=== PATIENT | male | born 1935 | race Caucasian/White ===

== ENCOUNTER 2020-02-21 12:07 | Inpatient (IN) | payer MEDICARE ==
[2020-02-21] MEDS ORDERED: PANTOPRAZOLE 40 MG/10 ML VIAL IVP STA (12:38)
[2020-02-21] MEDS ORDERED: SODIUM CHLORIDE 0.9% 1,000 ML IV STA (12:38)
--- NOTE | 2020-02-21 12:42 | ED ---
General Adult HPI - General Chief complaint: GI Bleed Stated complaint: Rectal Bleed Time Seen by Provider: 02/21/20 12:13 Source: patient, EMS, RN notes reviewed Mode of arrival: EMS Limitations: no limitations - History of Present Illness Initial comments: Patient is a pleasant 84-year-old male presenting to the emergency department with concerns for rectal bleeding. Patient states he had a bowel movement this morning with bright red blood. Patient states otherwise he feels fine only complains of being thirsty. Patient states he has been eating and drinking fine. No abdominal pain. No weakness or fatigue or dyspnea. Patient is on blood thinner secondary to history of atrial fibrillation. Patient reportedly has been refusing his Lovenox injections recently. - Related Data Home Medications Medication Instructions Recorded Confirmed Acetaminophen Tab [Tylenol] 650 mg PO Q4H PRN 02/21/20 02/21/20 Aspirin 81 mg PO DAILY 02/21/20 02/21/20 Atorvastatin Calcium [Lipitor] 10 mg PO HS 02/21/20 02/21/20 Cholecalciferol [Vitamin D3 (25 1,000 unit PO HS 02/21/20 02/21/20 Mcg = 1000 Iu)] Clopidogrel Bisulfate [Plavix] 75 mg PO DAILY 02/21/20 02/21/20 Heparin Sodium,Porcine [Heparin 5,000 unit SQ Q12H 02/21/20 02/21/20 Sodium] Ipratropium [place] [Atrovent Hfa] 2 puff INHALATION RT-QID 02/21/20 02/21/20 Ipratropium-Albuterol Nebulize 3 ml INHALATION RT-Q4H PRN 02/21/20 02/21/20 [Duoneb 0.5 mg-3 mg/3 ml Soln] Levothyroxine Sodium [Synthroid] 50 mcg PO DAILY@0600 02/21/20 02/21/20 Multivitamins, Thera [Multivitamin 1 tab PO DAILY@0900 02/21/20 02/21/20 (formulary)] [place]-3 Fatty Acids/Fish Oil [Fish 1 cap PO BID 02/21/20 02/21/20 Oil 1,000 mg Softgel] Ranitidine HCl 150 mg PO DAILY@0600 02/21/20 02/21/20 Allergies Allergy/AdvReac Type Severity Reaction Status Date / Time adhesive tape Allergy Unknown Verified 02/21/20 13:33 liquid potoassium Allergy Unknown Uncoded 02/21/20 13:33 Review of Systems ROS Statement: Those systems with pertinent positive or pertinent negative responses have been documented in the HPI. ROS Other: All systems not noted in ROS Statement are negative. Constitutional: Denies: fever Eyes: Denies: eye pain ENT: Denies: ear pain Respiratory: Denies: cough Cardiovascular: Denies: chest pain Endocrine: Denies: fatigue Gastrointestinal: Reports: hematochezia. Denies: vomiting Genitourinary: Denies: dysuria Musculoskeletal: Denies: back pain Skin: Denies: rash Neurological: Denies: weakness Past Medical History Past Medical History: Atrial Fibrillation Additional Past Medical History / Comment(s): pacemaker Past Surgical History: Cholecystectomy, Pacemaker Past Psychological History: No Psychological Hx Reported Smoking Status: Former smoker Past Alcohol Use History: None Reported Past Drug Use History: None Reported General Exam Limitations: no limitations General appearance: alert, in no apparent distress Head exam: Present: normocephalic Eye exam: Present: normal appearance ENT exam: Present: mucous membranes dry Neck exam: Present: normal inspection Respiratory exam: Present: normal lung sounds bilaterally Cardiovascular Exam: Present: tachycardia GI/Abdominal exam: Present: soft. 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 Patient is refusing EKG. 02/21/20 13:25 Monitor shows sinus tachycardia with a rate of 107. No irregularity. Patient is placed on monitor to evaluate for rhythm with history of arrhythmia. Medical Decision Making - Medical Decision Making Patient reevaluated and updated. Case was discussed with Dr. Peterson, who will admit covering for Dr. Jason - Lab Data Result diagrams: 02/21/20 12:52 02/21/20 12:52 Lab Results 02/21/20 02/21/20 02/21/20 Range/Units 12:52 12:52 12:52 WBC 10.8 H (3.8-10.6) k/uL RBC 3.04 L (4.30-5.90) m/uL Hgb 9.4 L (13.0-17.5) gm/dL Hct 28.1 L (39.0-53.0) % MCV 92.3 (80.0-100.0) fL MCH 30.9 (25.0-35.0) pg MCHC 33.5 (31.0-37.0) g/dL RDW 16.3 H (11.5-15.5) % Plt Count 365 (150-450) k/uL MPV 7.2 Neutrophils % 81 % Lymphocytes % 12 % Monocytes % 4 % Eosinophils % 1 % Basophils % 1 % Neutrophils # 8.7 H (1.3-7.7) k/uL Lymphocytes # 1.3 (1.0-4.8) k/uL Monocytes # 0.4 (0-1.0) k/uL Eosinophils # 0.1 (0-0.7) k/uL Basophils # 0.1 (0-0.2) k/uL Hypochromasia Slight Anisocytosis Slight Sodium 141 (137-145) mmol/L Potassium 4.9 (3.5-5.1) mmol/L Chloride 106 (98-107) mmol/L Carbon Dioxide 31 H (22-30) mmol/L Anion Gap 4 mmol/L BUN 38 H (9-20) mg/dL Creatinine 0.82 (0.66-1.25) mg/dL Est GFR (CKD-EPI)AfAm >90 (>60 ml/min/1.73 sqM) Est GFR (CKD-EPI)NonAf 81 (>60 ml/min/1.73 sqM) Glucose 112 H (74-99) mg/dL Calcium 8.8 (8.4-10.2) mg/dL Total Bilirubin 0.6 (0.2-1.3) mg/dL AST 24 (17-59) U/L ALT 20 (4-49) U/L Alkaline Phosphatase 125 (38-126) U/L Total Protein 5.7 L (6.3-8.2) g/dL Albumin 2.6 L (3.5-5.0) g/dL Stool Occult Blood Positive (Negative) Blood Type Blood Type Recheck Bld Type Recheck Status Antibody Screen Spec Expiration Date 02/21/20 Range/Units 12:52 WBC (3.8-10.6) k/uL RBC (4.30-5.90) m/uL Hgb (13.0-17.5) gm/dL Hct (39.0-53.0) % MCV (80.0-100.0) fL MCH (25.0-35.0) pg MCHC (31.0-37.0) g/dL RDW (11.5-15.5) % Plt Count (150-450) k/uL MPV Neutrophils % % Lymphocytes % % Monocytes % % Eosinophils % % Basophils % % Neutrophils # (1.3-7.7) k/uL Lymphocytes # (1.0-4.8) k/uL Monocytes # (0-1.0) k/uL Eosinophils # (0-0.7) k/uL Basophils # (0-0.2) k/uL Hypochromasia Anisocytosis Sodium (137-145) mmol/L Potassium (3.5-5.1) mmol/L Chloride (98-107) mmol/L Carbon Dioxide (22-30) mmol/L Anion Gap mmol/L BUN (9-20) mg/dL Creatinine (0.66-1.25) mg/dL Est GFR (CKD-EPI)AfAm (>60 ml/min/1.73 sqM) Est GFR (CKD-EPI)NonAf (>60 ml/min/1.73 sqM) Glucose (74-99) mg/dL Calcium (8.4-10.2) mg/dL Total Bilirubin (0.2-1.3) mg/dL AST (17-59) U/L ALT (4-49) U/L Alkaline Phosphatase (38-126) U/L Total Protein (6.3-8.2) g/dL Albumin (3.5-5.0) g/dL Stool Occult Blood (Negative) Blood Type B Positive Blood Type Recheck No Previous Record Bld Type Recheck Status CABO Indicated Antibody Screen NEGATIVE Spec Expiration Date 02/24/20202351 Disposition Clinical Impression: Lower gastrointestinal hemorrhage Disposition: ADMITTED IP TO THIS HOSP Is patient prescribed a controlled substance at d/c from ED?: No Referrals: Danny Gomez MD [Primary Care Provider] - 1-2 days Decision Time: 13:56
[2020-02-21] MEDS ORDERED: ACETAMINOPHEN TAB 325 MG TAB PO STA (13:14)
[2020-02-21 13:20] LABS: Anisocytosis Slight; Basophils # (A) 0.1 k/uL (0-0.2); Basophils % (A) 1 %; Eosinophils # (A) 0.1 k/uL (0-0.7); Eosinophils % (A) 1 %; HCT 28.1 % (39.0-53.0); HGB 9.4 gm/dL (13.0-17.5); Hypochromasia Slight; Lymphocytes # (A) 1.3 k/uL (1.0-4.8); Lymphocytes % (A) 12 %; MCH 30.9 pg (25.0-35.0); MCHC 33.5 g/dL (31.0-37.0); MCV 92.3 fL (80.0-100.0); Mean Platelet Volume 7.2; Monocytes # (A) 0.4 k/uL (0-1.0); Monocytes % (A) 4 %; Neutrophils # (A) 8.7 k/uL (1.3-7.7); Neutrophils % (A) 81 %; Platelet Count 365 k/uL (150-450); RBC 3.04 m/uL (4.30-5.90); RDW 16.3 % (11.5-15.5); WBC 10.8 k/uL (3.8-10.6)
[2020-02-21 13:34] LABS: ALT 20 U/L (4-49); AST 24 U/L (17-59); African American GFR (CKD) >90 (>60 ml/min/1.73 sqM); Albumin 2.6 g/dL (3.5-5.0); Alkaline Phosphatase 125 U/L (38-126); Anion Gap 4 mmol/L; Blood Urea Nitrogen 38 mg/dL (9-20); Calcium 8.8 mg/dL (8.4-10.2); Carbon Dioxide 31 mmol/L (22-30); Chloride 106 mmol/L (98-107); Glucose 112 mg/dL (74-99); Non-African American GFR(CKD) 81 (>60 ml/min/1.73 sqM); Potassium 4.9 mmol/L (3.5-5.1); Sodium 141 mmol/L (137-145); Total Bilirubin 0.6 mg/dL (0.2-1.3); Total Protein 5.7 g/dL (6.3-8.2)
[2020-02-21 13:47] LABS: INR 0.9 (<1.2); Prothrombin Time 10.2 sec (9.0-12.0)
[2020-02-21 13:55] LABS: Partial Thromboplastin Time 20.8 sec (22.0-30.0)
[2020-02-21] MEDS ORDERED: NALOXONE 0.4 MG/ML 1 ML VIAL IV PRN (13:56)
[2020-02-21] MEDS: SODIUM CHLORIDE 0.9% 1,000 ML IV SCH (14:38)
[2020-02-21] MEDS ORDERED: MORPHINE SULFATE 2 MG/ML SYRINGE IVP STA (15:07)
[2020-02-21] MEDS ORDERED: IPRATROPIUM-ALBUTEROL 3 ML NEB INHALATION PRN (15:40)
[2020-02-21] MEDS: ATORVASTATIN 10 MG TAB PO SCH ×2 (20:36→20:46)
[2020-02-21] MEDS: CHOLECALCIFEROL 1,000 UNIT TAB PO SCH ×2 (20:36→20:46)
[2020-02-21 20:54] LABS: % Iron Saturation 14.77 (15.00-50.00)
[2020-02-21] MEDS ORDERED: NON FORMULARY DRUG (Omega-3 Fatty Acids/Fish Oil [Fish Oil 1,000 Mg Softgel] 1 EACH Capsul PO SCH (21:00)
[2020-02-21 21:02] LABS: Ferritin 169.4 ng/mL (22.0-322.0)
--- NOTE | 2020-02-21 21:11 | P.CONS ---
History of Present Illness - Reason for Consult Consult date: 02/21/20 GI bleed Requesting physician: Prasanth Peterson - Chief Complaint Blood per rectum - History of Present Illness 84-year-old male with a medical history significant for atrial fibrillation, prior permanent pacemaker placement, hypothyroidism who presented to the hospital due to complaints of blood per rectum. The patient is on Plavix and aspirin therapy daily. He reports having difficulty having a bowel movement with the sensation of stool impaction. At this time he reports that a nurse who is visiting helped him remove the impacted stool and that subsequently he had painless bright red blood per rectum. No abdominal pain reported in association with these symptoms. He reports that he was straining. He states that he is had no further bleeding since that episode. Baseline bowel movements are reported as daily without any straining or constipation or diarrhea reported. Stool testing was positive for occult blood. Hemoglobin was found to be 9.4 with WBC 10.8 and platelet count of 365,000. The patient denies any prior similar episodes. He denies any history of peptic ulcer disease. No nausea or vomiting reported. He denies any prior endoscopic evaluation with EGD or colonoscopy in on questioning reports that he absolutely does not want to have any colonoscopy. Review of Systems REVIEW OF SYSTEMS: CONSTITUTIONAL: Denies any fevers, chills, weight change or fatigue. CARDIOVASCULAR: Denies any chest pain, palpitations high or low blood pressures RESPIRATORY: Denies any shortness of breath, hemoptysis or cough. GENITOURINARY: No dysuria or hematuria. MUSCULOSKELETAL: No weakness reported. SKIN: Denies any new rashes or lesions, jaundice or pallor. PSYCHIATRIC: Denies any depression or anxiety. NEUROLOGY: Denies headache, denies any new focal deficits. EARS/NOSE/THROAT: No recent hearing change, congestion, nasal discharge or sore throat. EYES: No pain in eyes, discharge or change in vision. GASTROINTESTINAL: As per HPI. Past Medical History Past Medical History: Atrial Fibrillation Additional Past Medical History / Comment(s): pacemaker History of Any Multi-Drug Resistant Organisms: None Reported Past Surgical History: Cholecystectomy, Pacemaker Type of Cardiac Device: Permanent Pacemaker, Unknown Device Placement Date:: unknown Past Psychological History: No Psychological Hx Reported Smoking Status: Former smoker Past Alcohol Use History: None Reported Past Drug Use History: None Reported Additional History: Family history: Reviewed with the patient in noncontributory to current medical presentation. Medications and Allergies Home Medications Medication Instructions Recorded Confirmed Type Acetaminophen Tab [Tylenol] 650 mg PO Q4H PRN 02/21/20 02/21/20 History Aspirin 81 mg PO DAILY 02/21/20 02/21/20 History Atorvastatin Calcium [Lipitor] 10 mg PO HS 02/21/20 02/21/20 History Cholecalciferol [Vitamin D3 (25 1,000 unit PO HS 02/21/20 02/21/20 History Mcg = 1000 Iu)] Clopidogrel Bisulfate [Plavix] 75 mg PO DAILY 02/21/20 02/21/20 History Heparin Sodium,Porcine [Heparin 5,000 unit SQ Q12H 02/21/20 02/21/20 History Sodium] Ipratropium [place] [Atrovent Hfa] 2 puff INHALATION RT-QID 02/21/20 02/21/20 History Ipratropium-Albuterol Nebulize 3 ml INHALATION RT-Q4H PRN 02/21/20 02/21/20 History [Duoneb 0.5 mg-3 mg/3 ml Soln] Levothyroxine Sodium [Synthroid] 50 mcg PO DAILY@0600 02/21/20 02/21/20 History Multivitamins, Thera [Multivitamin 1 tab PO DAILY@0900 02/21/20 02/21/20 History (formulary)] [place]-3 Fatty Acids/Fish Oil [Fish 1 cap PO BID 02/21/20 02/21/20 History Oil 1,000 mg Softgel] Ranitidine HCl 150 mg PO DAILY@0600 02/21/20 02/21/20 History Allergies Allergy/AdvReac Type Severity Reaction Status Date / Time adhesive tape Allergy Unknown Verified 02/21/20 13:33 liquid potoassium Allergy Unknown Uncoded 02/21/20 13:33 Physical Exam Vitals: Vital Signs Temp Pulse Pulse Resp BP BP Pulse Ox 02/21/20 19:19 97.9 F 56 L 16 95/59 95 02/21/20 16:15 97.5 F L 95 16 104/67 97 02/21/20 15:58 98 18 93/59 97 02/21/20 13:13 105 H 18 102/66 98 02/21/20 12:12 98.1 F 109 H 18 87/61 98 Intake and Output 02/21/20 02/21/20 02/21/20 06:59 14:59 22:59 Intake Total 300 Balance 300 Intake: Intake, IV Titration 300 Amount Sodium Chloride 0.9% 1, 300 000 ml @ 100 mls/hr IV . Q10H [facility] Rx#:[id number] Other: Weight 68.039 kg 68.039 kg On physical examination, patient appears comfortable in no apparent distress. HEAD: Normocephalic, atraumatic. EYES: No scleral icterus. No conjunctival injection. MOUTH: No lesions, tongue midline. NECK: Trachea midline, no gross abnormalities. CHEST: Decreased air entry in all lung de. HEART: S1-S2 appreciated. ABDOMEN: Soft, nontender to palpation. Bowel sounds are positive. No organomegaly. No guarding or rigidity. EXTREMITIES: No pedal edema. SKIN: No rashes, no jaundice. NEUROLOGIC: Alert and oriented x3. Results CBC & Chem 7: 02/21/20 12:52 02/21/20 12:52 Labs: Abnormal Lab Results - Last 24 Hours (Table) 02/21/20 02/21/20 02/21/20 Range/Units 12:52 12:52 12:52 WBC 10.8 H (3.8-10.6) k/uL RBC 3.04 L (4.30-5.90) m/uL Hgb 9.4 L (13.0-17.5) gm/dL Hct 28.1 L (39.0-53.0) % RDW 16.3 H (11.5-15.5) % Neutrophils # 8.7 H (1.3-7.7) k/uL APTT 20.8 L (22.0-30.0) sec Carbon Dioxide 31 H (22-30) mmol/L BUN 38 H (9-20) mg/dL Glucose 112 H (74-99) mg/dL Total Protein 5.7 L (6.3-8.2) g/dL Albumin 2.6 L (3.5-5.0) g/dL Assessment and Plan (1) Lower gastrointestinal hemorrhage Narrative/Plan: 84-year-old male with multiple medical comorbidities including atrial fibrillation, hypothyroidism, prior pacemaker placement on aspirin and Plavix therapy who presented to the hospital with painless bright red blood per rectum. The patient reports an episode of constipation with manual disimpaction and subsequent painless bright red blood per rectum. No further episodes since hospitalization. He denies any abdominal pain in association with his symptoms. Hemoglobin found to be 9.4 on presentation. He denies constipation and diarrhea baseline but does report difficulty having his bowel movement with straining and disimpaction prior to the bleeding as stated. No prior endoscopy with EGD or colonoscopy in the past and the patient is quite adamant that he is not interested in colonoscopy. Unclear etiology, may represent perirectal disease, stercoral ulcer in the setting of constipation, diverticular bleed, malignancy or other etiology. Current Visit: Yes Status: Acute Code(s): K92.2 - GASTROINTESTINAL HEMORRHAGE, UNSPECIFIED SNOMED Code(s): 72503477 (2) Anemia associated with acute blood loss Current Visit: Yes Status: Acute Code(s): D62 - ACUTE POSTHEMORRHAGIC ANEMIA SNOMED Code(s): 871319982 Plan: Supportive care Nothing by mouth Continue to monitor hemoglobin and hematocrit and transfuse as needed Continue to hold Plavix therapy Extensive discussion with the patient regarding the possibility of endoscopic evaluation, with all of the risks, benefits and possible complications of both proceeding with colonoscopy as well as not performing endoscopic evaluation explained at length with all the patient's questions answered to his satisfaction, at this time he is adamant that he does not want a colonoscopy X-ray of the abdomen ordered for tomorrow morning to rule out constipation and evaluate stool burden Can consider noninvasive evaluation with computed tomography scan or barium enema if patient continues to refuse colonoscopy, or tagged red blood cell scan if patient continues to have bleeding for localization of bleed Thank you for allowing us to participate in the care of the patient
[2020-02-21] MEDS: IPRATROPIUM 0.5 MG/2.5 ML NEBU INHALATION SCH (21:28)
--- NOTE | 2020-02-21 22:27 | P.HPIM ---
History of Present Illness H&P Date: 02/21/20 Chief Complaint: Bright red blood per rectum History of presenting complaint: This is a 84-year-old patient who follows with Dr. Gomez. Patient not a good historian and is on the irritated giving history. Doesn't want to be disturbed. Chronic stable medical conditions include hypothyroid, COPD, hyperlipidemia. He presented to the ER with rectal bleeding. He stated that he had bowel movement this morning that was bright red in color. Denies any abdominal pain. No trouble with eating. No weight loss. Denies any dizziness and lightheadedness. He is apparently on a blood thinner for atrial fibrillation. Unclear if he is taking the same. Does use a walker and apparently lives alone Review of systems: GEN.: None EYES: None HEENT: Decreased hearing] NECK: None RESPIRATORY: None CARDIOVASCULAR: None GASTROINTESTINAL: As above GENITOURINARY: None MUSCULOSKELETAL: Some joint pains LYMPHATICS: None HEMATOLOGICAL: None PSYCHIATRY: None NEUROLOGICAL: Uses a walker Past medical history to include: Atrial fibrillation, hypothyroid, pacemaker, COPD, arthritis Social history: Lives alone. Uses a walker. Did smoke in the past Family history: Patient cannot tell Physical examination: VITAL SIGNS: 98.1, 109, 18, 87/61, 98% room air GENERAL: BMI 22.2, laying in bed, a bit irritated. EYES: Pupils equal. Conjunctiva normal. HEENT: External appearance of nose and ears normal, oral cavity missing several teeth. NECK: JVD or bruit to be assessed, masses not palpable. HEART: Irregular heart sounds no edema. LUNGS: Respiratory rate normal; increased breath sounds. ABDOMEN: Soft, nontender, liver spleen not palpable, no masses palpable. PSYCH: Patient somewhat agitated can answer some questionsl. NEUROLOGICAL: [Cranial nerves grossly intact; no facial asymmetry, appears to contract of the right hand LYMPHATICS: No lymph nodes palpable in the axilla and neck INVESTIGATIONS, reviewed in the clinical context: White count 10.8 hemoglobin 9.4 platelets 365 potassium 4.9 creatinine 0.82 Fecal occult blood positive vitamin B12 633 albumin 2.6 Assessment: -Patient presents with bright red blood per rectum. Differential includes diverticular bleed versus hemorrhoidal bleed. Denies any abdominal pain. 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 Care was discussed with the patient. GI was consulted. IV fluids. Patient is put on a PPI. Follow H&H. Past Medical History Past Medical History: Atrial Fibrillation Additional Past Medical History / Comment(s): pacemaker History of Any Multi-Drug Resistant Organisms: None Reported Past Surgical History: Cholecystectomy, Pacemaker Type of Cardiac Device: Permanent Pacemaker, Unknown Device Placement Date:: unknown Past Psychological History: No Psychological Hx Reported Smoking Status: Former smoker Past Alcohol Use History: None Reported Past Drug Use History: None Reported Medications and Allergies Home Medications Medication Instructions Recorded Confirmed Type Acetaminophen Tab [Tylenol] 650 mg PO Q4H PRN 02/21/20 02/21/20 History Aspirin 81 mg PO DAILY 02/21/20 02/21/20 History Atorvastatin Calcium [Lipitor] 10 mg PO HS 02/21/20 02/21/20 History Cholecalciferol [Vitamin D3 (25 1,000 unit PO HS 02/21/20 02/21/20 History Mcg = 1000 Iu)] Clopidogrel Bisulfate [Plavix] 75 mg PO DAILY 02/21/20 02/21/20 History Heparin Sodium,Porcine [Heparin 5,000 unit SQ Q12H 02/21/20 02/21/20 History Sodium] Ipratropium [place] [Atrovent Hfa] 2 puff INHALATION RT-QID 02/21/20 02/21/20 History Ipratropium-Albuterol Nebulize 3 ml INHALATION RT-Q4H PRN 02/21/20 02/21/20 History [Duoneb 0.5 mg-3 mg/3 ml Soln] Levothyroxine Sodium [Synthroid] 50 mcg PO DAILY@0600 02/21/20 02/21/20 History Multivitamins, Thera [Multivitamin 1 tab PO DAILY@0900 02/21/20 02/21/20 History (formulary)] [place]-3 Fatty Acids/Fish Oil [Fish 1 cap PO BID 02/21/20 02/21/20 History Oil 1,000 mg Softgel] Ranitidine HCl 150 mg PO DAILY@0600 02/21/20 02/21/20 History Allergies Allergy/AdvReac Type Severity Reaction Status Date / Time adhesive tape Allergy Unknown Verified 02/21/20 13:33 liquid potoassium Allergy Unknown Uncoded 02/21/20 13:33 Physical Exam Vitals: Vital Signs Temp Pulse Pulse Resp BP BP Pulse Ox 02/21/20 19:19 97.9 F 56 L 16 95/59 95 02/21/20 16:15 97.5 F L 95 16 104/67 97 02/21/20 15:58 98 18 93/59 97 02/21/20 13:13 105 H 18 102/66 98 02/21/20 12:12 98.1 F 109 H 18 87/61 98 Intake and Output 02/21/20 02/21/20 02/21/20 06:59 14:59 22:59 Intake Total 300 Balance 300 Intake: Intake, IV Titration 300 Amount Sodium Chloride 0.9% 1, 300 000 ml @ 100 mls/hr IV . Q10H [facility] Rx#:[id number] Other: Weight 68.039 kg 68.039 kg Results CBC & Chem 7: 02/21/20 12:52 02/21/20 12:52 Labs: Abnormal Lab Results - Last 24 Hours (Table) 02/21/20 02/21/20 02/21/20 Range/Units 12:52 12:52 12:52 WBC 10.8 H (3.8-10.6) k/uL RBC 3.04 L (4.30-5.90) m/uL Hgb 9.4 L (13.0-17.5) gm/dL Hct 28.1 L (39.0-53.0) % RDW 16.3 H (11.5-15.5) % Neutrophils # 8.7 H (1.3-7.7) k/uL APTT 20.8 L (22.0-30.0) sec Carbon Dioxide 31 H (22-30) mmol/L BUN 38 H (9-20) mg/dL Glucose 112 H (74-99) mg/dL Iron (65-175) ug/dL % Saturation (15.00-50.00) Total Protein 5.7 L (6.3-8.2) g/dL Albumin 2.6 L (3.5-5.0) g/dL 02/21/20 Range/Units 12:52 WBC (3.8-10.6) k/uL RBC (4.30-5.90) m/uL Hgb (13.0-17.5) gm/dL Hct (39.0-53.0) % RDW (11.5-15.5) % Neutrophils # (1.3-7.7) k/uL APTT (22.0-30.0) sec Carbon Dioxide (22-30) mmol/L BUN (9-20) mg/dL Glucose (74-99) mg/dL Iron 35 L (65-175) ug/dL % Saturation 14.77 L (15.00-50.00) Total Protein (6.3-8.2) g/dL Albumin (3.5-5.0) g/dL Thrombosis Risk Factor Assmnt - Choose All That Apply Each Risk Factor Represents 3 Points: Age 75 years or older Thrombosis Risk Factor Assessment Total Risk Factor Score: 3 Thrombosis Risk Factor Assessment Level: Moderate Risk
[2020-02-22] MEDS: SODIUM CHLORIDE 0.9% 1,000 ML IV SCH ×3 (00:08→20:23)
[2020-02-22] MEDS: LEVOTHYROXINE 50 MCG TAB PO SCH (05:21)
[2020-02-22] MEDS: FAMOTIDINE 20 MG TAB PO SCH (05:21)
[2020-02-22 06:22] LABS: Anisocytosis Slight; Basophils # (A) 0.1 k/uL (0-0.2); Basophils % (A) 1 %; Eosinophils # (A) 0.1 k/uL (0-0.7); Eosinophils % (A) 2 %; HCT 26.6 % (39.0-53.0); HGB 8.5 gm/dL (13.0-17.5); Hypochromasia Marked; Lymphocytes # (A) 1.5 k/uL (1.0-4.8); Lymphocytes % (A) 23 %; MCH 30.8 pg (25.0-35.0); MCV 96.3 fL (80.0-100.0); Macrocytosis Slight; Monocytes # (A) 0.3 k/uL (0-1.0); Monocytes % (A) 5 %; Neutrophils # (A) 4.3 k/uL (1.3-7.7); Neutrophils % (A) 67 %; Platelet Count 302 k/uL (150-450); RBC 2.77 m/uL (4.30-5.90); RDW 16.2 % (11.5-15.5); WBC 6.4 k/uL (3.8-10.6)
[2020-02-22] MEDS: IPRATROPIUM 0.5 MG/2.5 ML NEBU INHALATION SCH ×4 (09:26→21:04)
[2020-02-22] MEDS: MULTIVITAMINS, THERA 1 EACH TAB PO SCH (09:49)
[2020-02-22] MEDS: PANTOPRAZOLE 40 MG/10 ML VIAL IV SCH (09:49)
[2020-02-22 10:11] LABS: African American GFR (CKD) 106.3 (60.0-200.0); Anion Gap 7.5 mmol/L (4.00-12.00); BUN/Creat Ratio 48.33 Ratio (12.00-20.00); Calcium 7.6 mg/dL (8.7-10.3); Carbon Dioxide 24.5 mmol/L (21.6-31.8); Non-African American GFR(CKD) 91.7 (60.0-200.0); Potassium 4.4 mmol/L (3.5-5.5)
--- NOTE | 2020-02-22 10:51 | XR ---
Abdomen HISTORY: Pain, stool burden Frontal view the abdomen on 2 images Abdominal aortic aneurysm is suspected correlated approximately 9 cm. There are bilateral calcificati ons, partial staghorn calculus on the right measures greater than 3 cm. Calcification on the left matt sures 1 cm, there are smaller calcifications present bilaterally. Lung bases are clear. Leads are pre sent over the heart. There is some retained fecal debris present. No evident bowel obstruction or pne umoperitoneum, vascular calcifications are present and dense. Degenerative disc changes are present i n the visualized spine, there is a spinal curvature. No evident pneumoperitoneum. IMPRESSION: Abdominal aortic aneurysm. Bilateral nephrolithiasis. There may be underlying ileus. Resu lts relayed to patient's nurse by telephone at the time of interpretation. A [place] level critical message alert has been initiated for Prasanth Peterson MD via the [employer] Critical Results System on 02/22/2020 10:26 AM. This message alert has been sent to Prasanth Peterson MD via the preferences provided by the clinician for the receipt of Radiology Critical Findings. [employer] e ID [id number].
[2020-02-22] MEDS: ACETAMINOPHEN TAB 325 MG TAB PO PRN (11:58)
--- NOTE | 2020-02-22 13:04 | P.GSCN ---
History of Present Illness Consult date: 02/22/20 Reason for Consult: Abdominal aortic aneurysm measuring 9 cm Requesting physician: Prasanth Peterson History of present illness: This is an 84-year-old male with a medical history significant for atrial fibrillation, prior permanent pacemaker placement, hypothyroidism who presented to the hospital due to complaints of blood per rectum. The patient is on Plavix and aspirin therapy daily. He reports having difficulty having a bowel movement with the sensation of stool impaction. He was residing at [facility] on the [place], and states a nurse helped him remove some impacted stool and he had s appointment prewrap blood per rectum on the tissue when wiping. No abdominal pain reported in association with these symptoms. He states that he is had no further bleeding since that episode. Stool testing was positive for occult blood. Hemoglobin was found to be 9.4 with WBC 10.8 and platelet count of 365,000. The patient denies any prior similar episodes. Gastroenterology was on consult and ordered an x-ray of the abdomen to see if there was stool burden. The x-ray old no abdominal aortic aneurysm that is suspected approximately 9 cm. There are bilateral calcifications partial staghorn calculus at the right measures greater than 3 cm., Calcification on the left measures 1 cm. Was additionally some evidence of retained fecal debris. No evidence of bowel obstruction. Vascular surgery was consulted regarding the abdominal aortic aneurysm. The patient denies any shortness of breath, chest pain, or abdominal pain. Denies any nausea or vomiting. He is on aspirin and Plavix, Plavix is currently on hold for questionable GI bleed. Review of Systems A 14 point review of systems was completed all pertinent positives and negatives as stated in the HPI. Past Medical History Past Medical History: Atrial Fibrillation Additional Past Medical History / Comment(s): pacemaker History of Any Multi-Drug Resistant Organisms: None Reported Past Surgical History: Cholecystectomy, Pacemaker Type of Cardiac Device: Permanent Pacemaker, Unknown Device Placement Date:: unknown Past Psychological History: No Psychological Hx Reported Smoking Status: Former smoker Past Alcohol Use History: None Reported Past Drug Use History: None Reported Medications and Allergies Home Medications Medication Instructions Recorded Confirmed Type Acetaminophen Tab [Tylenol] 650 mg PO Q4H PRN 02/21/20 02/21/20 History Aspirin 81 mg PO DAILY 02/21/20 02/21/20 History Atorvastatin Calcium [Lipitor] 10 mg PO HS 02/21/20 02/21/20 History Cholecalciferol [Vitamin D3 (25 1,000 unit PO HS 02/21/20 02/21/20 History Mcg = 1000 Iu)] Clopidogrel Bisulfate [Plavix] 75 mg PO DAILY 02/21/20 02/21/20 History Heparin Sodium,Porcine [Heparin 5,000 unit SQ Q12H 02/21/20 02/21/20 History Sodium] Ipratropium [place] [Atrovent Hfa] 2 puff INHALATION RT-QID 02/21/20 02/21/20 History Ipratropium-Albuterol Nebulize 3 ml INHALATION RT-Q4H PRN 02/21/20 02/21/20 History [Duoneb 0.5 mg-3 mg/3 ml Soln] Levothyroxine Sodium [Synthroid] 50 mcg PO DAILY@0600 02/21/20 02/21/20 History Multivitamins, Thera [Multivitamin 1 tab PO DAILY@0900 02/21/20 02/21/20 History (formulary)] [place]-3 Fatty Acids/Fish Oil [Fish 1 cap PO BID 02/21/20 02/21/20 History Oil 1,000 mg Softgel] Ranitidine HCl 150 mg PO DAILY@0600 02/21/20 02/21/20 History Allergies Allergy/AdvReac Type Severity Reaction Status Date / Time adhesive tape Allergy Unknown Verified 02/21/20 13:33 liquid potoassium Allergy Unknown Uncoded 02/21/20 13:33 Surgical - Exam Vital Signs Temp Pulse Resp BP Pulse Ox 98.1 F 109 H 18 87/61 98 02/21/20 12:12 02/21/20 12:12 02/21/20 12:12 02/21/20 12:12 02/21/20 12:12 General appearance: The patient is alert, oriented, appears in no acute distres s. HET: Head is normocephalic and atraumatic. Neck: Supple without lymphadenopathy. Trachea midline. Heart: S1 S2. Regular rate and rhythm. Lungs: No crackles or wheezes are heard. Abdomen: Soft, nontender, nondistended with bowel sounds. Extremities: Normal skin color and turgor. No cyanosis, rash, ulceration, clubbing, or edema. Palpable bilateral radial and dorsalis pedis pulses. Neurological: He is alert and oriented 2, unsure of the year. Results Abdominal x-ray: Abdominal aortic aneurysm is suspected correlated him approximately 9 cm. Bilateral nephrolithiasis. There may be underlying ileus. Results relayed to patient's nurse. - Labs 02/22/20 05:41 02/22/20 05:41 Abnormal Lab Results - Last 24 Hours (Table) 02/21/20 02/21/20 02/21/20 Range/Units 12:52 12:52 12:52 WBC 10.8 H (3.8-10.6) k/uL RBC 3.04 L (4.30-5.90) m/uL Hgb 9.4 L (13.0-17.5) gm/dL Hct 28.1 L (39.0-53.0) % RDW 16.3 H (11.5-15.5) % Neutrophils # 8.7 H (1.3-7.7) k/uL APTT 20.8 L (22.0-30.0) sec Carbon Dioxide 31 H (22-30) mmol/L BUN 38 H (9-20) mg/dL BUN/Creatinine Ratio (12.00-20.00) Ratio Glucose 112 H (74-99) mg/dL Calcium (8.7-10.3) mg/dL Iron (65-175) ug/dL % Saturation (15.00-50.00) Total Protein 5.7 L (6.3-8.2) g/dL Albumin 2.6 L (3.5-5.0) g/dL 02/21/20 02/22/20 02/22/20 Range/Units 12:52 05:41 05:41 WBC (3.8-10.6) k/uL RBC 2.77 L (4.30-5.90) m/uL Hgb 8.5 L (13.0-17.5) gm/dL Hct 26.6 L (39.0-53.0) % RDW 16.2 H (11.5-15.5) % Neutrophils # (1.3-7.7) k/uL APTT (22.0-30.0) sec Carbon Dioxide (22-30) mmol/L BUN 29.0 H (9-20) mg/dL BUN/Creatinine Ratio 48.33 H (12.00-20.00) Ratio Glucose (74-99) mg/dL Calcium 7.6 L (8.7-10.3) mg/dL Iron 35 L (65-175) ug/dL % Saturation 14.77 L (15.00-50.00) Total Protein (6.3-8.2) g/dL Albumin (3.5-5.0) g/dL Diabetes panel 02/21/20 02/22/20 Range/Units 12:52 05:41 Sodium 141 140 (137-145) mmol/L Potassium 4.9 4.4 (3.5-5.1) mmol/L Chloride 106 108 (98-107) mmol/L Carbon Dioxide 31 H 24.5 (22-30) mmol/L BUN 38 H 29.0 H (9-20) mg/dL Creatinine 0.82 0.6 (0.66-1.25) mg/dL Glucose 112 H 90 (74-99) mg/dL Calcium 8.8 7.6 L (8.4-10.2) mg/dL AST 24 (17-59) U/L ALT 20 (4-49) U/L Alkaline Phosphatase 125 (38-126) U/L Total Protein 5.7 L (6.3-8.2) g/dL Albumin 2.6 L (3.5-5.0) g/dL Calcium panel 02/21/20 02/22/20 Range/Units 12:52 05:41 Calcium 8.8 7.6 L (8.4-10.2) mg/dL Albumin 2.6 L (3.5-5.0) g/dL Pituitary panel 02/21/20 02/22/20 Range/Units 12:52 05:41 Sodium 141 140 (137-145) mmol/L Potassium 4.9 4.4 (3.5-5.1) mmol/L Chloride 106 108 (98-107) mmol/L Carbon Dioxide 31 H 24.5 (22-30) mmol/L BUN 38 H 29.0 H (9-20) mg/dL Creatinine 0.82 0.6 (0.66-1.25) mg/dL Glucose 112 H 90 (74-99) mg/dL Calcium 8.8 7.6 L (8.4-10.2) mg/dL Adrenal panel 02/21/20 02/22/20 Range/Units 12:52 05:41 Sodium 141 140 (137-145) mmol/L Potassium 4.9 4.4 (3.5-5.1) mmol/L Chloride 106 108 (98-107) mmol/L Carbon Dioxide 31 H 24.5 (22-30) mmol/L BUN 38 H 29.0 H (9-20) mg/dL Creatinine 0.82 0.6 (0.66-1.25) mg/dL Glucose 112 H 90 (74-99) mg/dL Calcium 8.8 7.6 L (8.4-10.2) mg/dL Total Bilirubin 0.6 (0.2-1.3) mg/dL AST 24 (17-59) U/L ALT 20 (4-49) U/L Alkaline Phosphatase 125 (38-126) U/L Total Protein 5.7 L (6.3-8.2) g/dL Albumin 2.6 L (3.5-5.0) g/dL Assessment and Plan Assessment: 1. Abdominal aortic aneurysm measuring 9 cm per abdominal x-ray 2. Rectal bleed 3. History of atrial fibrillation with prior permanent pacemaker Plan: The abdominal x-ray was reviewed with Dr. Alvarez. The findings were discussed with the patient was concerned there could be abdominal aortic rupture which could lead to . Patient states it verbalizes he seemingly understands and does not want to proceed with any vascular surgical intervention and does not want any further workup. Patient is adamant that he will not have any surgical procedures. This again was also discussed with Dr. Alvarez. There will be no further workup. Patient may be discharged home from a vascular surgical standpoint once medically cleared. He may follow-up with Dr. Alvarez as an outpatient if he changes his mind and would like to discuss possible intervention. Thank you for this consultation and allowing us take part in the plan of care of your patient during his hospital stay. The above dictated assessment and findings were discussed with Dr. Alvarez. The impression and plan of care have been directed as dictated.
--- NOTE | 2020-02-22 14:14 | P.PN ---
Subjective Progress Note Date: 02/22/20 Principal diagnosis: Rectal bleed Patient was seen and examined at the bedside. Patient denied any abdominal pain, nausea, or vomiting. He states he has not had a bowel movement. He has not had any further rectal bleeding. He again states he does not want to proceed with colonoscopy or any surgical intervention. Today's hemoglobin 8.5. Abdominal x-ray shows abdominal aortic aneurysm 9 cm, for which vascular surgery will see patient otherwise states there is some retained fecal debris present no evident bowel obstruction or pneumoperitoneum. There may be underlying ileus. Objective - Vital Signs Vital signs: Vital Signs Temp 97.5 F L 02/22/20 07:55 Pulse 87 02/22/20 07:55 Resp 18 02/22/20 07:55 BP 107/68 02/22/20 07:55 Pulse Ox 100 02/22/20 07:55 Intake & Output 02/21/20 02/22/20 02/22/20 18:59 06:59 18:59 Intake Total 300 800 Balance 300 800 Weight 68.039 kg Intake: Intake, IV Titration 300 800 Amount Sodium Chloride 0.9% 1, 300 800 000 ml @ 100 mls/hr IV . Q10H [facility] Rx#:[id number] Other: Voiding Method Diaper # Voids 1 1 - Exam General appearance: The patient is alert, oriented, appears in no acute distress. HET: Head is normocephalic and atraumatic. Conjunctiva pink. Sclera anicteric. Neck: Supple without lymphadenopathy. Abdomen: Soft, nontender, nondistended with bowel sounds. No guarding or rigidity. Extremities: Normal skin color and turgor. No pedal edema Neurological: No focal deficits. Alert and oriented 3. - Labs CBC & Chem 7: 02/22/20 05:41 02/22/20 05:41 Labs: Abnormal Lab Results - Last 24 Hours (Table) 02/21/20 02/21/20 02/21/20 Range/Units 12:52 12:52 12:52 WBC 10.8 H (3.8-10.6) k/uL RBC 3.04 L (4.30-5.90) m/uL Hgb 9.4 L (13.0-17.5) gm/dL Hct 28.1 L (39.0-53.0) % RDW 16.3 H (11.5-15.5) % Neutrophils # 8.7 H (1.3-7.7) k/uL APTT 20.8 L (22.0-30.0) sec Carbon Dioxide 31 H (22-30) mmol/L BUN 38 H (9-20) mg/dL Glucose 112 H (74-99) mg/dL Iron (65-175) ug/dL % Saturation (15.00-50.00) Total Protein 5.7 L (6.3-8.2) g/dL Albumin 2.6 L (3.5-5.0) g/dL 02/21/20 02/22/20 Range/Units 12:52 05:41 WBC (3.8-10.6) k/uL RBC 2.77 L (4.30-5.90) m/uL Hgb 8.5 L (13.0-17.5) gm/dL Hct 26.6 L (39.0-53.0) % RDW 16.2 H (11.5-15.5) % Neutrophils # (1.3-7.7) k/uL APTT (22.0-30.0) sec Carbon Dioxide (22-30) mmol/L BUN (9-20) mg/dL Glucose (74-99) mg/dL Iron 35 L (65-175) ug/dL % Saturation 14.77 L (15.00-50.00) Total Protein (6.3-8.2) g/dL Albumin (3.5-5.0) g/dL Assessment and Plan (1) Lower gastrointestinal hemorrhage Narrative/Plan: This is a 84-year-old male with multiple medical comorbidities including atrial fibrillation, hypothyroidism, prior pacemaker placement on aspirin and Plavix therapy who presented to the hospital with painless bright red blood per rectum. The patient reports an episode of constipation with manual disimpaction and subsequent painless bright red blood per rectum. No further episodes since hospitalization. He denies any abdominal pain in association with his symptoms. Hemoglobin found to be 9.4 on presentation. Today's hemoglobin 8.5, no further rectal bleeding or bowel movements. Current Visit: Yes Status: Acute Code(s): K92.2 - GASTROINTESTINAL HEMORRHAGE, UNSPECIFIED SNOMED Code(s): 97351327 (2) Anemia associated with acute blood loss Current Visit: Yes Status: Acute Code(s): D62 - ACUTE POSTHEMORRHAGIC ANEMIA SNOMED Code(s): 115698159 Plan: Supportive care Advance to full liquid diet Continue to monitor hemoglobin and hematocrit and transfuse as needed Continue to hold Plavix therapy Extensive discussion with the patient regarding the possibility of endoscopic evaluation, with all of the risks, benefits and possible complications of both proceeding with colonoscopy as well as not performing endoscopic evaluation explained at length with all the patient's questions answered to his satisfaction, at this time he is adamant that he does not want a colonoscopy X-ray of the abdomen reviewed, shows stool burden, no bowel obstruction, possible ileus Can consider noninvasive evaluation with computed tomography scan or barium enema if patient continues to refuse colonoscopy, or tagged red blood cell scan if patient continues to have bleeding for localization of bleed Thank you for allowing us to participate in the care of the patient Dr. Connors I agree with the dictator's note, documented as a scribe by Dinorah WILLIS.
[2020-02-22] MEDS: CHOLECALCIFEROL 1,000 UNIT TAB PO SCH (20:23)
[2020-02-22] MEDS: ATORVASTATIN 10 MG TAB PO SCH (20:23)
--- NOTE | 2020-02-22 21:22 | P.PN ---
Progress Note - Text Progress Note Date: 02/22/20 Chief Complaint: Bright red blood per rectum History of presenting complaint: This is a 84-year-old patient who follows with Dr. Gomez. Patient not a good historian and is on the irritated giving history. Doesn't want to be disturbed. Chronic stable medical conditions include hypothyroid, COPD, hyperlipidemia. He presented to the ER with rectal bleeding. He stated that he had bowel movement this morning that was bright red in color. Denies any abdominal pain. No trouble with eating. No weight loss. Denies any dizziness and lightheadedness. He is apparently on a blood thinner for atrial fibrillation. Unclear if he is taking the same. Does use a walker and apparently lives alone today-patient laying in bed. Does not want any investigations to be done. Was found over 9 cm abdominal aortic aneurysm. Last dosage was consulted. He tolerated does not want any further investigations. Comfortable. No further bleeding. Fair appetite. Review of systems: Was done for constitutional, cardiovascular, GI, pulmonary. relevant finding as above Active Medications Acetaminophen (Acetaminophen Tab 325 Mg Tab) 650 mg PO Q6HR PRN PRN Reason: Mild Pain or Fever > 100.5 Last Admin: 02/22/20 11:58 Dose: 650 mg Documented by: Albuterol/Ipratropium (Ipratropium-Albuterol 3 Ml Neb) 3 ml INHALATION RT-Q4H PRN PRN Reason: Shortness Of Breath Atorvastatin Calcium (Atorvastatin 10 Mg Tab) 10 mg PO [facility] Last Admin: 02/22/20 20:23 Dose: 10 mg Documented by: Cholecalciferol (Cholecalciferol 1,000 Unit Tab) 1,000 unit PO [facility] Last Admin: 02/22/20 20:23 Dose: 1,000 unit Documented by: Famotidine (Famotidine 20 Mg Tab) 20 mg PO DAILY@0600 [facility] Last Admin: 02/22/20 05:21 Dose: 20 mg Documented by: Sodium Chloride (Saline 0.9%) 1,000 mls @ 100 mls/hr IV .Q10H [facility] Last Admin: 02/22/20 20:23 Dose: 100 mls/hr Documented by: Ipratropium [place] (Ipratropium 0.5 Mg/2.5 Ml Nebu) 0.5 mg INHALATION RT-QID [facility] Last Admin: 02/22/20 21:04 Dose: Not Given Documented by: Levothyroxine Sodium (Levothyroxine 50 Mcg Tab) 50 mcg PO DAILY@0600 [facility] Last Admin: 02/22/20 05:21 Dose: 50 mcg Documented by: Multivitamins (Multivitamins, Thera 1 Each Tab) 1 each PO DAILY@0900 [facility] Last Admin: 02/22/20 09:49 Dose: 1 each Documented by: Naloxone HCl (Naloxone 0.4 Mg/Ml 1 Ml Vial) 0.2 mg IV Q2M PRN PRN Reason: Opioid Reversal Pantoprazole Sodium (Pantoprazole 40 Mg/10 Ml Vial) 40 mg IV DAILY [facility] Last Admin: 02/22/20 09:49 Dose: 40 mg Documented by: Past medical history to include: Atrial fibrillation, hypothyroid, pacemaker, COPD, arthritis Social history: Lives alone. Uses a walker. Did smoke in the past Family history: Patient cannot tell Physical examination: VITAL SIGNS: 97.5, 87, 18, 107/68, 100% room air GENERAL: BMI 22.2, laying in bed, comfortable. EYES: Pupils equal. Conjunctiva normal. HEENT: External appearance of nose and ears normal, oral cavity missing several teeth. NECK: JVD or bruit to be assessed, masses not palpable. HEART: Irregular heart sounds no edema. LUNGS: Respiratory rate normal; increased breath sounds. ABDOMEN: Soft, nontender, liver spleen not palpable, no masses palpable. PSYCH: Patient somewhat agitated can answer some questionsl. NEUROLOGICAL: [Cranial nerves grossly intact; no facial asymmetry, right-sided weakness with contracture of the right arm INVESTIGATIONS, reviewed in the clinical context: February 21: count 6.4 hemoglobin 8.5 potassium 4.4 creatinine 0.6 Abdominal [id number] aortic aneurysm 9 cm. bi Lateral nephrolithiasis. White count 10.8 hemoglobin 9.4 platelets 365 potassium 4.9 creatinine 0.82 Fecal occult blood positive vitamin B12 633 albumin 2.6 Assessment: -Patient presents with bright red blood per rectum. Differential includes diverticular bleed versus hemorrhoidal bleed. Denies any abdominal pain.she declined further intervention. -Abdominal artery and is a 9 cm. Patient is declining treatment. 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 Patient to manage conservatively. Patient's nurse to call patient's son and did confirm that patient t is declining investigations.patient to be managed conservatively. pending,authorization for patient to go back to [facility].spoke to the vascular surgery Nurse practitioner, and the nurse.and discussed with the patient. Total time spent today was about 40 minutes with over 25 minutes of discussion.
[2020-02-23] MEDS: ACETAMINOPHEN TAB 325 MG TAB PO PRN ×2 (03:58→11:01)
[2020-02-23 06:10] LABS: Anisocytosis Slight; HCT 23.7 % (39.0-53.0); HGB 7.8 gm/dL (13.0-17.5); Hypochromasia Moderate; MCH 31.2 pg (25.0-35.0); MCV 94.7 fL (80.0-100.0); Mean Platelet Volume 7.1; Platelet Count 302 k/uL (150-450); RDW 16.4 % (11.5-15.5); WBC 6.6 k/uL (3.8-10.6)
[2020-02-23] MEDS: FAMOTIDINE 20 MG TAB PO SCH (06:11)
[2020-02-23] MEDS: SODIUM CHLORIDE 0.9% 1,000 ML IV SCH (06:11)
[2020-02-23] MEDS: LEVOTHYROXINE 50 MCG TAB PO SCH (06:11)
[2020-02-23] MEDS: MULTIVITAMINS, THERA 1 EACH TAB PO SCH (07:40)
[2020-02-23] MEDS: PANTOPRAZOLE 40 MG/10 ML VIAL IV SCH (07:40)
[2020-02-23 07:42] VITALS: RESP 18
[2020-02-23] MEDS: IPRATROPIUM 0.5 MG/2.5 ML NEBU INHALATION SCH ×3 (08:38→15:10)
--- NOTE | 2020-02-23 13:31 | P.PN ---
Subjective Progress Note Date: 02/23/20 Principal diagnosis: Rectal bleed The patient was seen and examined lying in bed. He denies any abdominal pain, nausea, or vomiting. He reports he has not had any bloody bowel movements or further rectal bleeding. According to medicines no the patient's son has been contacted and agrees with no aggressive treatment with surgeries and continue with medical management. Objective - Vital Signs Vital signs: Vital Signs Temp 97.4 F L 02/23/20 07:40 Pulse 88 02/23/20 07:40 Resp 18 02/23/20 07:40 BP 112/75 02/23/20 07:40 Pulse Ox 98 02/23/20 07:40 Intake & Output 02/22/20 02/23/20 02/23/20 18:59 06:59 18:59 Intake Total 50 Balance 50 Intake: Oral 50 Other: Voiding Method Diaper Diaper Diaper # Voids 1 1 1 - Exam General appearance: The patient is alert, oriented, appears in no acute distres s. HET: Head is normocephalic and atraumatic. Conjunctiva pink. Sclera anicteric. Neck: Supple without lymphadenopathy. Abdomen: Soft, nontender, nondistended with bowel sounds. No guarding or r igidity. Extremities: Normal skin color and turgor. No pedal edema Neurological: No focal deficits. Alert and oriented 3. - Labs CBC & Chem 7: 02/23/20 05:56 02/22/20 05:41 Labs: Abnormal Lab Results - Last 24 Hours (Table) 02/23/20 Range/Units 05:56 RBC 2.50 L (4.30-5.90) m/uL Hgb 7.8 L (13.0-17.5) gm/dL Hct 23.7 L (39.0-53.0) % RDW 16.4 H (11.5-15.5) % Assessment and Plan Assessment: 1. Abdominal aortic aneurysm measuring 9 cm per abdominal x-ray 2. Rectal bleed 3. History of atrial fibrillation with prior permanent pacemaker (1) Lower gastrointestinal hemorrhage Narrative/Plan: This is a 84-year-old male with multiple medical comorbidities including atrial fibrillation, hypothyroidism, prior pacemaker placement on aspirin and Plavix therapy who presented to the hospital with painless bright red blood per rectum. The patient reports an episode of constipation with manual disimpaction and subsequent painless bright red blood per rectum. No further episodes since hospitalization. He denies any abdominal pain in association with his symptoms. Hemoglobin found to be 9.4 on presentation. Today's hemoglobin 8.5, no further rectal bleeding or bowel movements. Current Visit: Yes Status: Acute Code(s): K92.2 - GASTROINTESTINAL HEMORRHAGE, UNSPECIFIED SNOMED Code(s): 96287461 (2) Anemia associated with acute blood loss Current Visit: Yes Status: Acute Code(s): D62 - ACUTE POSTHEMORRHAGIC ANEMIA SNOMED Code(s): 869690229 Plan: Supportive care Advance to regular diet Continue to monitor hemoglobin and hematocrit and transfuse as needed Continue to hold Plavix therapy Extensive discussion with the patient regarding the possibility of endoscopic evaluation, with all of the risks, benefits and possible complications of both proceeding with colonoscopy as well as not performing endoscopic evaluation explained at length with all the patient's questions answered to his satisfaction, at this time he is adamant that he does not want a colonoscopy X-ray of the abdomen reviewed, shows stool burden, no bowel obstruction, possible ileus Can consider noninvasive evaluation with computed tomography scan or barium enema if patient continues to refuse colonoscopy, or tagged red blood cell scan if patient continues to have bleeding for localization of bleed Thank you for allowing us to participate in the care of the patient, we will sign off at this time Dr. Connors I agree with the dictator's note, documented as a scribe by Dinorah Ahuja.
--- NOTE | 2020-02-23 14:49 | P.DS ---
Providers Date of admission: 02/21/20 13:56 Expected date of discharge: 02/23/20 Attending physician: Prasanth Peterson Consults: 02/21/20 13:56 Consult Physician Urgent Consulting Provider: Scott Connors Consult Reason/Comments: lower gihemorrhage Do you want consulting provider notified?: Yes 02/22/20 10:53 Consult Physician Stat Consulting Provider: Sylvia Alvarez Consult Reason/Comments: Anneurysm on X-Ray Do you want consulting provider notified?: Yes Primary care physician: [facility] Course: Chief Complaint: Bright red blood per rectum History of presenting complaint: This is a 84-year-old patient who follows with Dr. Gomez. Patient not a good historian and is on the irritated giving history. Doesn't want to be disturbed. Chronic stable medical conditions include hypothyroid, COPD, hyperlipidemia. He presented to the ER with rectal bleeding. He stated that he had bowel movement this morning that was bright red in color. Denies any abdominal pain. No trouble with eating. No weight loss. Denies any dizziness and lightheadedness. He is apparently on a blood thinner for atrial fibrillation. Unclear if he is taking the same. Does use a walker and apparently lives alone Does not want any investigations to be done. Was found over 9 cm abdominal aortic aneurysm. vascular surgery was consulted. does not want any further investigations. patient's son was contacted. He is okay with the same. Today- Comfortable. No further bleeding. aspirin is being resumed. Plavix discontinued. Most is guarded. consultation: Dr. Chow from GI Dr. Alvarez from vascular Past medical history to include: Atrial fibrillation, hypothyroid, pacemaker, COPD, arthritis Social history: Lives alone. Uses a walker. Did smoke in the past Family history: Patient cannot tell Physical examination: VITAL SIGNS: : 88, 18, 100 1275, 98% room air GENERAL: BMI 22.2, laying in bed, comfortable. EYES: Pupils equal. Conjunctiva normal. HEENT: External appearance of nose and ears normal, oral cavity missing several teeth. NECK: JVD or bruit to be assessed, masses not palpable. HEART: Irregular heart sounds no edema. LUNGS: Respiratory rate normal; increased breath sounds. ABDOMEN: Soft, nontender, liver spleen not palpable, no masses palpable. PSYCH: Patient somewhat agitated can answer some questionsl. NEUROLOGICAL: [Cranial nerves grossly intact; no facial asymmetry, right-sided weakness with contracture of the right arm INVESTIGATIONS, reviewed in the clinical context: Generally 13: Hemoglobin 7.8 February 21: count 6.4 hemoglobin 8.5 potassium 4.4 creatinine 0.6 Abdominal o-rwe-[id number] aortic aneurysm 9 cm. bi Lateral nephrolithiasis. White count 10.8 hemoglobin 9.4 platelets 365 potassium 4.9 creatinine 0.82 Fecal occult blood positive vitamin B12 633 albumin 2.6 Assessment: -Patient presents with bright red blood per rectum. Differential includes diverticular bleed versus hemorrhoidal bleed. Denies any abdominal pain.he declined further intervention. -Abdominal artery and is a 9 cm. Patient has declined treatment. 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 in the [place] Patient Condition at Discharge: Stable Plan - Discharge Summary Discharge Rx Participant: No New Discharge Prescriptions: New Omeprazole [PriLOSEC] 20 mg PO AC-BID #1 cap Continue Acetaminophen Tab [Tylenol] 650 mg PO Q4H PRN PRN Reason: Fever And/ Or Pain [place]-3 Fatty Acids/Fish Oil [Fish Oil 1,000 mg Softgel] 1 cap PO BID Multivitamins, Thera [Multivitamin (formulary)] 1 tab PO DAILY@0900 Levothyroxine Sodium [Synthroid] 50 mcg PO DAILY@0600 Aspirin 81 mg PO DAILY Cholecalciferol [Vitamin D3 (25 Mcg = 1000 Iu)] 1,000 unit PO HS Atorvastatin Calcium [Lipitor] 10 mg PO HS Ipratropium-Albuterol Nebulize [Duoneb 0.5 mg-3 mg/3 ml Soln] 3 ml INHALATION RT-Q4H PRN PRN Reason: Shortness Of Breath Ipratropium [place] [Atrovent Hfa] 2 puff INHALATION RT-QID Discontinued Ranitidine HCl 150 mg PO DAILY@0600 Clopidogrel Bisulfate [Plavix] 75 mg PO DAILY Heparin Sodium,Porcine [Heparin Sodium] 5,000 unit SQ Q12H Discharge Medication List Acetaminophen Tab [Tylenol] 650 mg PO Q4H PRN 02/21/20 [History] Aspirin 81 mg PO DAILY 02/21/20 [History] Atorvastatin Calcium [Lipitor] 10 mg PO HS 02/21/20 [History] Cholecalciferol [Vitamin D3 (25 Mcg = 1000 Iu)] 1,000 unit PO HS 02/21/20 [History] Ipratropium [place] [Atrovent Hfa] 2 puff INHALATION RT-QID 02/21/20 [History] Ipratropium-Albuterol Nebulize [Duoneb 0.5 mg-3 mg/3 ml Soln] 3 ml INHALATION RT-Q4H PRN 02/21/20 [History] Levothyroxine Sodium [Synthroid] 50 mcg PO DAILY@0600 02/21/20 [History] Multivitamins, Thera [Multivitamin (formulary)] 1 tab PO DAILY@0900 02/21/20 [History] [place]-3 Fatty Acids/Fish Oil [Fish Oil 1,000 mg Softgel] 1 cap PO BID 02/21/20 [History] Omeprazole [PriLOSEC] 20 mg PO AC-BID #1 cap 02/23/20 [Rx] Follow up Appointment(s)/Referral(s): Danny Gomez MD [Primary Care Provider] - 1-2 days
[2020-02-23 14:50] VITALS: BP 113/68; PULSE 87; TEMP 98
== END 2020-02-23 18:39 | DRG 393 ==
LOC: EC 12:07 → 5NMEDONC 13:56
PROVIDERS: ADMIT Hospitalist; ATTEND Hospitalist
DX: K64.9 Unspecified hemorrhoids (principal); K57.31 Diverticulosis of large intestine without perforation or abscess with bleeding; D62 Acute posthemorrhagic anemia; E78.5 Hyperlipidemia, unspecified; E03.9 Hypothyroidism, unspecified; F03.90 Unspecified dementia, unspecified severity, without behavioral disturbance, psychotic disturbance, mood disturbance, and anxiety; J44.9 Chronic obstructive pulmonary disease, unspecified; M19.91 Primary osteoarthritis, unspecified site; R26.9 Unspecified abnormalities of gait and mobility; I71.4 Abdominal aortic aneurysm, without rupture; N20.0 Calculus of kidney; K56.41 Fecal impaction; Z60.2 Problems related to living alone; I48.91 Unspecified atrial fibrillation; Z79.02 Long term (current) use of antithrombotics/antiplatelets; Z79.82 Long term (current) use of aspirin; Z79.890 Hormone replacement therapy; Z79.899 Other long term (current) drug therapy; Z87.891 Personal history of nicotine dependence; Z88.8 Allergy status to other drugs, medicaments and biological substances; Z90.49 Acquired absence of other specified parts of digestive tract; Z95.0 Presence of cardiac pacemaker
CPT/HCPCS: 36415; 74018; 80048; 80053; 82272; 82607; 82728; 83540; 83550; 85025; 85027; 85610; 85730; 86850; 86900; 86901; 96361; 96374; 96375; 99285

== ENCOUNTER 2020-03-12 00:10 | Inpatient (IN) | payer MEDICARE ==
[2020-03-12] MEDS ORDERED: ONDANSETRON 4 MG/2 ML VIAL IVP STA (00:20)
[2020-03-12] MEDS ORDERED: PANTOPRAZOLE 40 MG/10 ML VIAL IVP STA (00:20)
[2020-03-12] MEDS ORDERED: SODIUM CHLORIDE 0.9% 1,000 ML IV STA (00:20)
--- NOTE | 2020-03-12 00:21 | ED ---
GI Bleed HPI - General Stated complaint: GI Bleed Time Seen by Provider: 03/12/20 00:14 Source: RN notes reviewed, old records reviewed, Caregiver Mode of arrival: EMS Limitations: altered mental status - History of Present Illness Initial comments: This is a 4-year-old male DF for evaluation patient Dese for evaluation regarding possible GI bleed vomiting blood. Patient himself is a poor story and unable to give history but denying any complaints per record no blood thinners. Patient's brought in by EMS who provides history MD complaint: blood streaked emesis, coffee ground emesis -: hour(s) Radiation: none Severity scale (1-10): 3 Consistency: constant Improves with: none Worsens with: none Context: history of GI bleed Associated Symptoms: nausea Treatments Prior to Arrival: none - Related Data Home Medications Medication Instructions Recorded Confirmed Acetaminophen Tab [Tylenol] 650 mg PO Q4H PRN 02/21/20 02/21/20 Aspirin 81 mg PO DAILY 02/21/20 02/21/20 Atorvastatin Calcium [Lipitor] 10 mg PO HS 02/21/20 02/21/20 Cholecalciferol [Vitamin D3 (25 1,000 unit PO HS 02/21/20 02/21/20 Mcg = 1000 Iu)] Ipratropium [place] [Atrovent Hfa] 2 puff INHALATION RT-QID 02/21/20 02/21/20 Ipratropium-Albuterol Nebulize 3 ml INHALATION RT-Q4H PRN 02/21/20 02/21/20 [Duoneb 0.5 mg-3 mg/3 ml Soln] Levothyroxine Sodium [Synthroid] 50 mcg PO DAILY@0600 02/21/20 02/21/20 Multivitamins, Thera [Multivitamin 1 tab PO DAILY@0900 02/21/20 02/21/20 (formulary)] [place]-3 Fatty Acids/Fish Oil [Fish 1 cap PO BID 02/21/20 02/21/20 Oil 1,000 mg Softgel] Previous Rx's Medication Instructions Recorded Omeprazole [PriLOSEC] 20 mg PO AC-BID #1 cap 02/23/20 Allergies Allergy/AdvReac Type Severity Reaction Status Date / Time adhesive tape Allergy Unknown Verified 02/21/20 13:33 liquid potoassium Allergy Unknown Uncoded 02/21/20 13:33 Review of Systems ROS Statement: Those systems with pertinent positive or pertinent negative responses have been documented in the HPI. ROS Other: All systems not noted in ROS Statement are negative. Past Medical History Past Medical History: Atrial Fibrillation Additional Past Medical History / Comment(s): pacemaker History of Any Multi-Drug Resistant Organisms: None Reported Past Surgical History: Cholecystectomy, Pacemaker Type of Cardiac Device: Permanent Pacemaker, Unknown Device Placement Date:: unknown Past Psychological History: No Psychological Hx Reported Smoking Status: Former smoker Past Alcohol Use History: None Reported Past Drug Use History: None Reported General Exam General appearance: alert, in no apparent distress Head exam: Present: atraumatic, normocephalic, normal inspection Eye exam: Present: normal appearance, PERRL, EOMI. Absent: scleral icterus, conjunctival injection, periorbital swelling ENT exam: Present: normal exam, mucous membranes moist Neck exam: Present: normal inspection. Absent: tenderness, meningismus, lymphadenopathy Respiratory exam: Present: normal lung sounds bilaterally. Absent: respiratory distress, wheezes, rales, rhonchi, stridor Cardiovascular Exam: Present: regular rate, normal rhythm, normal heart sounds. Absent: systolic murmur, diastolic murmur, rubs, gallop, clicks GI/Abdominal exam: Present: soft, normal bowel sounds. Absent: distended, tenderness, guarding, rebound, rigid Extremities exam: Present: normal inspection, full ROM, normal capillary refill. Absent: tenderness, pedal edema, joint swelling, calf tenderness Back exam: Present: normal inspection Neurological exam: Present: alert, oriented X3, CN II-XII intact Psychiatric exam: Present: normal affect, normal mood Skin exam: Present: warm, dry, intact, normal color. Absent: rash Course Vital Signs 03/12/20 03/12/20 03/12/20 00:11 00:22 01:13 Temperature 97.7 F Pulse Rate 114 H 108 H Respiratory 18 18 Rate Blood Pressure 112/88 111/93 O2 Sat by Pulse 95 95 Oximetry 03/12/20 03:13 Temperature 98.7 F Pulse Rate 108 H Respiratory 20 Rate Blood Pressure 115/88 O2 Sat by Pulse 95 Oximetry - Reevaluation(s) Reevaluation #1: 03/12/20 00:09 Medical record is reviewed Patient has no active vomiting here in the ER - Consultations Consultation #1: Spoke with PMH were agreeable to admit the patient Medical Decision Making - Medical Decision Making 84 male DF for evaluation significantly poor story coming in for apparent GI bleed. B with coffee-ground emesis. Hemoglobin stable blood pressure stable. Patient will be admitted for continued evaluation management - Lab Data Result diagrams: 03/12/20 00:29 03/12/20 00:29 Lab Results 03/12/20 03/12/20 03/12/20 Range/Units 00:29 00:29 00:29 WBC 19.4 H (3.8-10.6) k/uL RBC 3.72 L (4.30-5.90) m/uL Hgb 10.5 L (13.0-17.5) gm/dL Hct 33.5 L (39.0-53.0) % MCV 90.0 (80.0-100.0) fL MCH 28.2 (25.0-35.0) pg MCHC 31.4 (31.0-37.0) g/dL RDW 15.9 H (11.5-15.5) % Plt Count 792 H D (150-450) k/uL MPV 7.2 Neutrophils % 89 % Lymphocytes % 7 % Monocytes % 3 % Eosinophils % 0 % Basophils % 0 % Neutrophils # 17.3 H (1.3-7.7) k/uL Lymphocytes # 1.4 (1.0-4.8) k/uL Monocytes # 0.6 (0-1.0) k/uL Eosinophils # 0.0 (0-0.7) k/uL Basophils # 0.1 (0-0.2) k/uL Hypochromasia Marked Poikilocytosis Slight PT 12.0 (9.0-12.0) sec INR 1.2 H (<1.2) APTT 24.2 (22.0-30.0) sec Sodium 142 (137-145) mmol/L Potassium 4.3 (3.5-5.1) mmol/L Chloride 100 (98-107) mmol/L Carbon Dioxide 31 H (22-30) mmol/L Anion Gap 11 mmol/L BUN 22 H (9-20) mg/dL Creatinine 0.81 (0.66-1.25) mg/dL Est GFR (CKD-EPI)AfAm >90 (>60 ml/min/1.73 sqM) Est GFR (CKD-EPI)NonAf 81 (>60 ml/min/1.73 sqM) Glucose 148 H (74-99) mg/dL Plasma Lactic Acid [place] (0.7-2.0) mmol/L Calcium 9.1 (8.4-10.2) mg/dL Magnesium 2.6 H (1.6-2.3) mg/dL Total Bilirubin 0.8 (0.2-1.3) mg/dL AST 28 (17-59) U/L ALT 25 (4-49) U/L Alkaline Phosphatase 136 H (38-126) U/L Creatine Kinase <20 L (55-170) U/L Troponin I (0.000-0.034) ng/mL Total Protein 6.5 (6.3-8.2) g/dL Albumin 2.8 L (3.5-5.0) g/dL Lipase 135 (23-300) U/L Blood Type Blood Type Recheck Bld Type Recheck Status Antibody Screen Spec Expiration Date 03/12/20 03/12/20 03/12/20 Range/Units 00:29 00:29 00:29 WBC (3.8-10.6) k/uL RBC (4.30-5.90) m/uL Hgb (13.0-17.5) gm/dL Hct (39.0-53.0) % MCV (80.0-100.0) fL MCH (25.0-35.0) pg MCHC (31.0-37.0) g/dL RDW (11.5-15.5) % Plt Count (150-450) k/uL MPV Neutrophils % % Lymphocytes % % Monocytes % % Eosinophils % % Basophils % % Neutrophils # (1.3-7.7) k/uL Lymphocytes # (1.0-4.8) k/uL Monocytes # (0-1.0) k/uL Eosinophils # (0-0.7) k/uL Basophils # (0-0.2) k/uL Hypochromasia Poikilocytosis PT (9.0-12.0) sec INR (<1.2) APTT (22.0-30.0) sec Sodium (137-145) mmol/L Potassium (3.5-5.1) mmol/L Chloride (98-107) mmol/L Carbon Dioxide (22-30) mmol/L Anion Gap mmol/L BUN (9-20) mg/dL Creatinine (0.66-1.25) mg/dL Est GFR (CKD-EPI)AfAm (>60 ml/min/1.73 sqM) Est GFR (CKD-EPI)NonAf (>60 ml/min/1.73 sqM) Glucose (74-99) mg/dL Plasma Lactic Acid [place] 1.7 (0.7-2.0) mmol/L Calcium (8.4-10.2) mg/dL Magnesium (1.6-2.3) mg/dL Total Bilirubin (0.2-1.3) mg/dL AST (17-59) U/L ALT (4-49) U/L Alkaline Phosphatase (38-126) U/L Creatine Kinase (55-170) U/L Troponin I <0.012 (0.000-0.034) ng/mL Total Protein (6.3-8.2) g/dL Albumin (3.5-5.0) g/dL Lipase (23-300) U/L Blood Type B Positive Blood Type Recheck B Pos Bld Type Recheck Status No Antibody Screen NEGATIVE Spec Expiration Date 03/15/20202328 Disposition Clinical Impression: Lower gastrointestinal hemorrhage, Anemia associated with acute blood loss, Weakness Disposition: ADMITTED IP TO THIS [facility] Condition: Fair Is patient prescribed a controlled substance at d/c from ED?: No
[2020-03-12 00:51] LABS: ALT 25 U/L (4-49); AST 28 U/L (17-59); African American GFR (CKD) >90 (>60 ml/min/1.73 sqM); Albumin 2.8 g/dL (3.5-5.0); Alkaline Phosphatase 136 U/L (38-126); Anion Gap 11 mmol/L; Blood Urea Nitrogen 22 mg/dL (9-20); Calcium 9.1 mg/dL (8.4-10.2); Carbon Dioxide 31 mmol/L (22-30); Chloride 100 mmol/L (98-107); Creatine Kinase <20 U/L (55-170); Glucose 148 mg/dL (74-99); INR 1.2 (<1.2); Lipase 135 U/L (23-300); Magnesium 2.6 mg/dL (1.6-2.3); Non-African American GFR(CKD) 81 (>60 ml/min/1.73 sqM); Partial Thromboplastin Time 24.2 sec (22.0-30.0); Potassium 4.3 mmol/L (3.5-5.1); Sodium 142 mmol/L (137-145); Total Bilirubin 0.8 mg/dL (0.2-1.3); Total Protein 6.5 g/dL (6.3-8.2)
[2020-03-12 01:09] LABS: Basophils # (A) 0.1 k/uL (0-0.2); Basophils % (A) 0 %; Eosinophils % (A) 0 %; HCT 33.5 % (39.0-53.0); HGB 10.5 gm/dL (13.0-17.5); Hypochromasia Marked; Lymphocytes # (A) 1.4 k/uL (1.0-4.8); Lymphocytes % (A) 7 %; MCH 28.2 pg (25.0-35.0); MCHC 31.4 g/dL (31.0-37.0); Mean Platelet Volume 7.2; Monocytes # (A) 0.6 k/uL (0-1.0); Monocytes % (A) 3 %; Neutrophils # (A) 17.3 k/uL (1.3-7.7); Neutrophils % (A) 89 %; Poikilocytosis Slight; RBC 3.72 m/uL (4.30-5.90); RDW 15.9 % (11.5-15.5); WBC 19.4 k/uL (3.8-10.6)
[2020-03-12] MEDS ORDERED: HYDROmorphone 1 MG/ML 1 ML SYRINGE IVP STA (01:10)
[2020-03-12 01:20] LABS: Platelet Count 792 k/uL (150-450)
[2020-03-12] MEDS ORDERED: NALOXONE 0.4 MG/ML 1 ML VIAL IV PRN (01:50)
[2020-03-12] MEDS ORDERED: SODIUM CHLORIDE 0.9% 1,000 ML IV SCH (03:15)
[2020-03-12] MEDS ORDERED: PANTOPRAZOLE 40 MG/10 ML VIAL IV SCH (09:00)
[2020-03-12] MEDS ORDERED: IPRATROPIUM-ALBUTEROL 3 ML NEB INHALATION PRN (10:01)
[2020-03-12 10:51] VITALS: BMI 14.3
--- NOTE | 2020-03-12 10:57 | XR ---
EXAMINATION TYPE: XR chest 1V portable DATE OF EXAM: 03/12/2020 COMPARISON: NONE HISTORY: Shortness of breath TECHNIQUE: Single frontal view of the chest is obtained. FINDINGS: Bilateral airspace disease is present. Interstitium is mildly increased. Generators presen t in left pectoral region, there are leads in right atrium and ventricle, there are overlying cardiac leads. No pneumothorax or pleural effusion. Cardiac mediastinal silhouette within normal limits. The re is an underlying scoliotic curvature the spine. Aorta is dense. IMPRESSION: Correlate for pneumonia, edema, follow-up recommended.
[2020-03-12] MEDS: SODIUM CHLORIDE 0.9% 1,000 ML IV SCH ×2 (12:17→20:27)
[2020-03-12] MEDS ORDERED: NON FORMULARY DRUG (Lactose-Reduced Food [Ensure Plus] 237 ML Liquid) PO SCH (13:00)
--- NOTE | 2020-03-12 13:52 | P.HPIM ---
History of Present Illness 82-year-old male was [facility] in [facility] for possible hematemesis. Patient doesn't have any GI bleed at this time patient doesn't have any blood in the stools. Stools or hematemesis or hematochezia. Patient was a recently di scharged from the hospital about couple weeks ago after he was treated hypoxemia related to covid 19. A she is alert oriented 1. His baseline is unknown, patient appears to be nonfunctional cachectic malnourished at baseline. His allyssa line functionality is not clear at this time. She cannot provide any history to me. Patient doesn't have any fever chills patient is presently on 4 L of oxygen with bibasilar crackles. 6 was obtained which is showing infiltrates mostly consistent with Covid 19 pneumonia. Patient creatinine is 0.9 his baseline for his body mass should be around 0.2. Patient appears to be dehydrated will be started on IV fluids will also obtain a BNP clinically doesn't appear to be in CHF patient does have leukocytosis no fever or cannot completely rule out a secondary bacterial pneumonia, patient will be started on ceftriaxone 1 g daily. Patient is also tachycardic will obtain a EKG Past Medical History Past Medical History: Atrial Fibrillation Additional Past Medical History / Comment(s): pacemaker History of Any Multi-Drug Resistant Organisms: None Reported Past Surgical History: Cholecystectomy, Pacemaker Past Anesthesia/Blood Transfusion Reactions: No Reported Reaction Type of Cardiac Device: Permanent Pacemaker, Unknown Device Placement Date:: unknown Past Psychological History: No Psychological Hx Reported Smoking Status: Former smoker Past Alcohol Use History: None Reported Past Drug Use History: None Reported Medications and Allergies Home Medications Medication Instructions Recorded Confirmed Type Acetaminophen Tab [Tylenol] 650 mg PO Q4H PRN 02/21/20 03/12/20 History Aspirin 81 mg PO DAILY@0900 02/21/20 03/12/20 History Atorvastatin Calcium [Lipitor] 10 mg PO HS@209902/21/20 03/12/20 History Cholecalciferol [Vitamin D3 (25 1,000 unit PO HS@209902/21/20 03/12/20 History Mcg = 1000 Iu)] Ipratropium [place] [Atrovent Hfa] 2 puff INHALATION RT-QID 02/21/20 03/12/20 History Ipratropium-Albuterol Nebulize 3 ml INHALATION RT-Q4H PRN 02/21/20 03/12/20 History [Duoneb 0.5 mg-3 mg/3 ml Soln] Levothyroxine Sodium [Synthroid] 50 mcg PO DAILY@0600 02/21/20 03/12/20 History Multivitamins, Thera [Multivitamin 1 tab PO DAILY@0900 02/21/20 03/12/20 History (formulary)] [place]-3 Fatty Acids/Fish Oil [Fish 1 cap PO BID@0900,2100 02/21/20 03/12/20 Hi story Oil 1,000 mg Softgel] Acetaminophen-Codeine 300-30mg 1 tab PO Q8H PRN 03/12/20 03/12/20 History [Tylenol w/codeine #3] Gabapentin [Neurontin] 100 mg PO HS@2100 03/12/20 03/12/20 History Lactose-Reduced Food [Ensure Plus] 1 can PO BID@0900,1300,2100 03/12/20 03/12/20 History Ranitidine HCl 150 mg PO DAILY@0600 03/12/20 03/12/20 History Allergies Allergy/AdvReac Type Severity Reaction Status Date / Time adhesive tape Allergy Unknown Verified 03/12/20 08:32 liquid potoassium Allergy Unknown Uncoded 02/21/20 13:33 Physical Exam Vitals: Vital Signs Temp Pulse Pulse Resp BP BP Pulse Ox 03/12/20 08:00 96.9 F L 106 H 12 95/64 92 L 03/12/20 03:51 97.6 F 113 H 15 115/81 93 L 03/12/20 03:13 98.7 F 108 H 20 115/88 95 03/12/20 01:13 108 H 18 111/93 95 03/12/20 00:22 95 03/12/20 00:11 97.7 F 114 H 18 112/88 Intake and Output 03/11/20 03/12/20 03/12/20 22:59 06:59 14:59 Intake Total 750 Balance 750 Intake: Intake, IV Titration 450 Amount Sodium Chloride 0.9% 1, 450 000 ml @ 150 mls/hr IV . Q6H40M [facility] Rx#:[id number] Oral 300 Other: Voiding Method Indwelling Catheter Weight 45.359 kg 45.359 kg Results CBC & Chem 7: 03/12/20 00:29 03/12/20 00:29 Labs: Abnormal Lab Results - Last 24 Hours (Table) 03/12/20 03/12/20 03/12/20 Range/Units 00:29 00:29 00:29 WBC 19.4 H (3.8-10.6) k/uL RBC 3.72 L (4.30-5.90) m/uL Hgb 10.5 L (13.0-17.5) gm/dL Hct 33.5 L (39.0-53.0) % RDW 15.9 H (11.5-15.5) % Plt Count 792 H D (150-450) k/uL Neutrophils # 17.3 H (1.3-7.7) k/uL INR 1.2 H (<1.2) Carbon Dioxide 31 H (22-30) mmol/L BUN 22 H (9-20) mg/dL Glucose 148 H (74-99) mg/dL Magnesium 2.6 H (1.6-2.3) mg/dL Alkaline Phosphatase 136 H (38-126) U/L Creatine Kinase <20 L (55-170) U/L Albumin 2.8 L (3.5-5.0) g/dL Coronavirus (PCR) (Not Detectd) 03/12/20 Range/Units 02:36 WBC (3.8-10.6) k/uL RBC (4.30-5.90) m/uL Hgb (13.0-17.5) gm/dL Hct (39.0-53.0) % RDW (11.5-15.5) % Plt Count (150-450) k/uL Neutrophils # (1.3-7.7) k/uL INR (<1.2) Carbon Dioxide (22-30) mmol/L BUN (9-20) mg/dL Glucose (74-99) mg/dL Magnesium (1.6-2.3) mg/dL Alkaline Phosphatase (38-126) U/L Creatine Kinase (55-170) U/L Albumin (3.5-5.0) g/dL Coronavirus (PCR) Detected A (Not Detectd) Thrombosis Risk Factor Assmnt - Choose All That Apply Any of the Below Risk Factors Present?: No Each Risk Factor Represents 3 Points: Age 75 years or older Thrombosis Risk Factor Assessment Total Risk Factor Score: 3 Thrombosis Risk Factor Assessment Level: Moderate Risk
[2020-03-12] MEDS: ONDANSETRON 4 MG/2 ML VIAL IVP PRN (15:33)
[2020-03-12 16:28] LABS: Glucose,Whole Blood 112 mg/dL (75-99)
[2020-03-12 17:39] LABS: Appearance,Urine Cloudy (Clear); Bacteria,Urine Rare /hpf; Bilirubin,Urine Negative (Negative); Blood,Urine Moderate (Negative); Color,Urine Yellow; Glucose,Urine (UA) Negative (Negative); Hyaline Casts,Urine 1 /lpf (0-2); Ketones,Urine Negative (Negative); Leukocyte Esterase,Urine Moderate (Negative); Mucus,Urine Rare /hpf; Nitrite,Urine Negative (Negative); Protein,Urine 1+ (Negative); RBC,Urine 79 /hpf (0-5); Specific Gravity,Urine 1.018 (1.001-1.035); Squamous Epithelial Cell,Urine <1 /hpf (0-4); Urobilinogen,Urine <2.0 mg/dL (<2.0); WBC,Urine 21 /hpf (0-5)
[2020-03-12] MEDS: GABAPENTIN 100 MG CAP PO SCH ×2 (20:27→20:30)
[2020-03-12] MEDS: ATORVASTATIN 10 MG TAB PO SCH ×2 (20:27→20:30)
[2020-03-12] MEDS: PANTOPRAZOLE 40 MG/10 ML VIAL IV SCH (20:27)
[2020-03-12] MEDS: MORPHINE SULFATE 4 MG/ML SYRINGE IV PRN (20:52)
[2020-03-12] MEDS ORDERED: HEPARIN SODIUM,PORCINE 5,000 UNIT/ML 1 ML VIAL SQ SCH (21:00)
[2020-03-13] MEDS: LEVOTHYROXINE 50 MCG TAB PO SCH (05:09)
[2020-03-13] MEDS ORDERED: FAMOTIDINE 20 MG TAB PO SCH (06:00)
[2020-03-13 06:54] LABS: Basophils % (A) 0 %; Eosinophils % (A) 0 %; HCT 34.1 % (39.0-53.0); HGB 9.9 gm/dL (13.0-17.5); Hypochromasia Marked; Lymphocytes # (A) 1.1 k/uL (1.0-4.8); Lymphocytes % (A) 5 %; MCH 27.5 pg (25.0-35.0); MCHC 29.1 g/dL (31.0-37.0); MCV 94.5 fL (80.0-100.0); Monocytes # (A) 0.4 k/uL (0-1.0); Monocytes % (A) 2 %; Neutrophils # (A) 20.4 k/uL (1.3-7.7); Neutrophils % (A) 92 %; Platelet Count 613 k/uL (150-450); Poikilocytosis Slight; RBC 3.61 m/uL (4.30-5.90); RDW 15.6 % (11.5-15.5); WBC 22.1 k/uL (3.8-10.6)
[2020-03-13] MEDS: ASPIRIN 81 MG PO SCH (09:04)
[2020-03-13] MEDS: MULTIVITAMINS, THERA 1 EACH TAB PO SCH (09:04)
[2020-03-13] MEDS: MORPHINE SULFATE 4 MG/ML SYRINGE IV PRN (09:05)
[2020-03-13] MEDS: ONDANSETRON 4 MG/2 ML VIAL IVP PRN (09:05)
[2020-03-13] MEDS: PANTOPRAZOLE 40 MG/10 ML VIAL IV SCH ×2 (09:07→21:04)
[2020-03-13] MEDS ORDERED: PROCHLORPERAZINE SUPPOSITORY 25 MG SUPP RECTAL PRN (10:18)
[2020-03-13] MEDS: SODIUM CHLORIDE 0.9% 1,000 ML IV SCH (11:42)
--- NOTE | 2020-03-13 12:18 | P.PN ---
Subjective 82-year-old male was sent in from custodial for possible hematemesis. Patient doesn't have any GI bleed at this time patient doesn't have any blood in the stools. Stools or hematemesis or hematochezia. Patient was a recently discharged from the hospital about couple weeks ago after he was treated hypoxemia related to covid 19. A she is alert oriented 1. His baseline is unknown, patient appears to be nonfunctional cachectic malnourished at baseline. His allyssa line functionality is not clear at this time. She cannot provide any history to me. Patient doesn't have any fever chills patient is presently on 4 L of oxygen with bibasilar crackles. 6 was obtained which is showing infiltrates mostly consistent with Covid 19 pneumonia. Patient creatinine is 0.9 his baseline for his body mass should be around 0.2. Patient appears to be dehydrated will be started on IV fluids will also obtain a BNP clinically doesn't appear to be in CHF patient does have leukocytosis no fever or cannot completely rule out a secondary bacterial pneumonia, patient will be started on ceftriaxone 1 g daily. Patient is also tachycardic will obtain a EKG 03/13/2020 Patient respiratory status is bit worse and patient is requiring more oxygen today pulmonary was consulted. Patient remains bit tachycardic in atrial fibrillation. Patient apparently makes his own decision although I do not believe we can make his own decision Review of systems: Unable to often due to his clinical condition All inpatient medications were reviewed and appropriate changes in these medications as dictated in the interval history and assessment and plan. Objective - Vital Signs Vital signs: Vital Signs Temp 97.2 F L 03/13/20 11:00 Pulse 114 H 03/13/20 11:00 Resp 16 03/13/20 11:00 BP 81/55 03/13/20 11:00 Pulse Ox 88 L 03/13/20 11:00 Intake & Output 03/12/20 03/13/20 03/13/20 18:59 06:59 18:59 Intake Total 900 Output Total 350 Balance 900 -350 Weight 45.359 kg Intake: Intake, IV Titration 900 Amount Sodium Chloride 0.9% 1, 900 000 ml @ 75 mls/hr IV . [id number] [facility] Rx#:[id number] Output: Urine 350 Straight 350 Other: Voiding Method Indwelling Catheter Indwelling Catheter # Emeses 2 - Exam PHYSICAL EXAMINATION: GENERAL: The patient is alert and oriented x1, not in any acute distress. And built cachectic male, with contractures HEENT: Pupils are round and equally reacting to light. EOMI. No scleral icterus. No conjunctival pallor. Normocephalic, atraumatic. No pharyngeal erythema. No thyromegaly. CARDIOVASCULAR: S1 and S2 present. No murmurs, rubs, or gallops. PULMONARY: Chest is clear to auscultation, no wheezing or crackles. ABDOMEN: Soft, nontender, nondistended, normoactive bowel sounds. No palpable organomegaly. MUSCULOSKELETAL: No joint swelling or deformity. EXTREMITIES: No cyanosis, clubbing, or pedal edema. NEUROLOGICAL: Related to have any focal deficits significant muscle atrophy SKIN: No rashes - Labs CBC & Chem 7: 03/13/20 06:40 03/12/20 00:29 Labs: Abnormal Lab Results - Last 24 Hours (Table) 03/12/20 03/12/20 03/13/20 Range/Units 16:27 16:50 06:40 WBC 22.1 H (3.8-10.6) k/uL RBC 3.61 L (4.30-5.90) m/uL Hgb 9.9 L (13.0-17.5) gm/dL Hct 34.1 L (39.0-53.0) % MCHC 29.1 L (31.0-37.0) g/dL RDW 15.6 H (11.5-15.5) % Plt Count 613 H (150-450) k/uL Neutrophils # 20.4 H (1.3-7.7) k/uL POC Glucose (mg/dL) 112 H (75-99) mg/dL Urine Protein 1+ H (Negative) Urine Blood Moderate H (Negative) Ur Leukocyte Esterase Moderate H (Negative) Urine RBC 79 H (0-5) /hpf Urine WBC 21 H (0-5) /hpf Urine Bacteria Rare H (None) /hpf Urine Mucus Rare H (None) /hpf Microbiology - Last 24 Hours (Table) 03/12/20 16:50 Urine Culture - Preliminary Urine,Voided Assessment and Plan Plan: -Dehydration and acute renal failure: Prerenal azotemia most probably secondary to poor by mouth intake which is again secondary to dementia which appears to be pretty advanced. Improved patient's respiratory status is bit worse -Acute upper GI bleed and patient is still having nausea vomiting GI was consulted and patient is on Protonix, patient had acute blood loss anemia from upper GI bleed -Hypoxic respiratory failure: Secondary bacterial pneumonia cannot be ruled out patient was started on ceftriaxone. Patient was recently treated for covid 19. -Tachycardia will obtain EKG tachycardia is probably secondary to dehydration - chronic A. fib, Presently A. fib with rapid ventricular rate, patient is sedated resumed on rate control medication or any anticoagulation at this time. Moderate malnutrition -History of COPD he used to be a smoker in the past -Possible dementia Since there is no active GI bleed and patient is high risk for DVT patient was started on subcutaneous heparin for DVT prophylaxis. Patient prognosis is extremely poor.
--- NOTE | 2020-03-13 14:03 | P.CNPUL ---
History of Present Illness Consult date: 03/13/20 Requesting physician: Ashlyn Jones Reason for consult: dyspnea, cough, hypoxemia, pneumonia, abnormal CXR/CT Chief complaint: GI bleed History of present illness: Pulmonary and critical care consult dated 03/13/2020. This is an 84-year-old male who is seen in the emergency room on March 12 for mental status changes, and GI bleed. Apparently, the patient has been having issues with hematemesis. Not a particularly good historian. We are apparently consulted because of possible pneumonia. The patient has a prior history of COVID 19 infection. Currently, he is nauseated. The nurse was going to get him an antiemetic. He is a very cachectic appearing gentleman who is chronically ill, and not a very good historian. He apparently had some blood in his vomitus as well as coffee ground emesis according to the emergency room physician. A chest x-ray shows a possible right upper lobe pneumonia as well as some infiltrate or atelectasis at the left again he is not a particularly good historian and getting any history as it relates to cough, shortness of breath, chest congestion, phlegm production, fever, and other symptoms which might suggest pneumonia is very difficult. He apparently was in the hospital a number of weeks ago was discharged with a diagnosis of COVID 19 pneumonia and associated hypoxemic respiratory failure. He apparently again tested positive for COVID 19 infection on this admission. Currently, on 6 L nasal cannula, his saturations are only 90%. Again, he is very chronically ill looking, with profound cachexia. Review of Systems REVIEW OF SYSTEMS: CONSTITUTIONAL: Weakness NEUROLOGIC: [ Negative.] HEENT: [ Negative.] CARDIAC: [Negative.] PULMONARY: Shortness of breath GI: Hematemesis : [Negative.] RHEUMATOLOGIC: [ Negative.] IMMUNOLOGIC: [ Negative.] ENDOCRINE: [Negative. ] DERMATOLOGIC: [Negative.] Past Medical History Past Medical History: Atrial Fibrillation Additional Past Medical History / Comment(s): pacemaker History of Any Multi-Drug Resistant Organisms: None Reported Past Surgical History: Cholecystectomy, Pacemaker Past Anesthesia/Blood Transfusion Reactions: No Reported Reaction Type of Cardiac Device: Permanent Pacemaker, Unknown Device Placement Date:: unknown Past Psychological History: No Psychological Hx Reported Smoking Status: Former smoker Past Alcohol Use History: None Reported Past Drug Use History: None Reported Medications and Allergies Home Medications Medication Instructions Recorded Confirmed Type Acetaminophen Tab [Tylenol] 650 mg PO Q4H PRN 02/21/20 03/12/20 History Aspirin 81 mg PO DAILY@0900 02/21/20 03/12/20 History Atorvastatin Calcium [Lipitor] 10 mg PO HS@209902/21/20 03/12/20 History Cholecalciferol [Vitamin D3 (25 1,000 unit PO HS@209902/21/20 03/12/20 History Mcg = 1000 Iu)] Ipratropium [place] [Atrovent Hfa] 2 puff INHALATION RT-QID 02/21/20 03/12/20 History Ipratropium-Albuterol Nebulize 3 ml INHALATION RT-Q4H PRN 02/21/20 03/12/20 History [Duoneb 0.5 mg-3 mg/3 ml Soln] Levothyroxine Sodium [Synthroid] 50 mcg PO DAILY@0600 02/21/20 03/12/20 History Multivitamins, Thera [Multivitamin 1 tab PO DAILY@0900 02/21/20 03/12/20 History (formulary)] [place]-3 Fatty Acids/Fish Oil [Fish 1 cap PO BID@0900,2100 02/21/20 03/12/20 History Oil 1,000 mg Softgel] Acetaminophen-Codeine 300-30mg 1 tab PO Q8H PRN 03/12/20 03/12/20 History [Tylenol w/codeine #3] Gabapentin [Neurontin] 100 mg PO HS@209903/12/20 03/12/20 History Lactose-Reduced Food [Ensure Plus] 1 can PO BID@0900,1300,209903/12/20 03/12/20 History Ranitidine HCl 150 mg PO DAILY@0600 03/12/20 03/12/20 History Allergies Allergy/AdvReac Type Severity Reaction Status Date / Time adhesive tape Allergy Unknown Verified 03/12/20 08:32 liquid potoassium Allergy Unknown Uncoded 02/21/20 13:33 Physical Exam Osteopathic Statement: *. No significant issues noted on an osteopathic structural exam other than those noted in the History and Physical/Consult. Vitals: Vital Signs Temp Pulse Resp BP Pulse Ox 03/13/20 11:00 97.2 F L 114 H 16 81/55 88 L 03/13/20 06:08 95.9 F L 96 16 94/61 93 L 03/13/20 02:55 96.9 F L 85 14 104/66 95 03/12/20 22:24 96.5 F L 96 14 111/75 97 03/12/20 19:26 110 H 16 03/12/20 14:00 98.2 F 110 H 16 91/67 92 L Intake and Output 03/12/20 03/13/20 03/13/20 22:59 06:59 14:59 Intake Total 900 Output Total 350 Balance 900 -350 Intake: Intake, IV Titration 900 Amount Sodium Chloride 0.9% 1, 900 000 ml @ 75 mls/hr IV . [id number] MARCO Rx#:[id number] Output: Urine 350 Straight 350 Other: Voiding Method Indwelling Catheter # Emes[place] [address] at 6 L. No obvious respiratory distress, such as conversational dyspnea or audible wheezing. The patient looks much older than his stated age and is chronically ill appearing. HEENT examination is grossly unremarkable. Mucous membranes are moist. Neck supple. Full range of motion. No adenopathy thyromegaly or neck vein distention. Cardiovascular examination reveals irregular rhythm and rate. S1-S2 normal. No S3 or S4. No discernible murmur noted. Heart sounds are distant, and heart rate is 114 bpm. Lungs reveal coarse bilateral inspiratory and expiratory rhonchi. No wheezes. Scattered crackles. Breath sounds equal bilaterally but diminished throughout. Abdomen soft bowel sounds are heard. No masses or tenderness. Extremities are intact. No cyanosis clubbing or edema. Skin is without rash or lesion. Multiple ecchymoses are seen. Neurologic examination is brief but nonfocal. Results - Laboratory Findings CBC and BMP: 03/13/20 06:40 03/12/20 00:29 PT/INR, D-dimer PT 12.0 sec (9.0-12.0) 03/12/20 00:29 INR 1.2 (<1.2) H 03/12/20 00:29 Abnormal lab findings: Abnormal Labs 03/12/20 03/12/20 03/12/20 00:29 00:29 00:29 WBC 19.4 H RBC 3.72 L Hgb 10.5 L Hct 33.5 L MCHC RDW 15.9 H Plt Count 792 H D Neutrophils # 17.3 H INR 1.2 H Carbon Dioxide 31 H BUN 22 H Glucose 148 H POC Glucose (mg/dL) Magnesium 2.6 H Alkaline Phosphatase 136 H Creatine Kinase <20 L Albumin 2.8 L Urine Protein Urine Blood Ur Leukocyte Esterase Urine RBC Urine WBC Urine Bacteria Urine Mucus Coronavirus (PCR) 03/12/20 03/12/20 03/12/20 02:36 16:27 16:50 WBC RBC Hgb Hct MCHC RDW Plt Count Neutrophils # INR Carbon Dioxide BUN Glucose POC Glucose (mg/dL) 112 H Magnesium Alkaline Phosphatase Creatine Kinase Albumin Urine Protein 1+ H Urine Blood Moderate H Ur Leukocyte Esterase Moderate H Urine RBC 79 H Urine WBC 21 H Urine Bacteria Rare H Urine Mucus Rare H Coronavirus (PCR) Detected A 03/13/20 06:40 WBC 22.1 H RBC 3.61 L Hgb 9.9 L Hct 34.1 L MCHC 29.1 L RDW 15.6 H Plt Count 613 H Neutrophils # 20.4 H INR Carbon Dioxide BUN Glucose POC Glucose (mg/dL) Magnesium Alkaline Phosphatase Creatine Kinase Albumin Urine Protein Urine Blood Ur Leukocyte Esterase Urine RBC Urine WBC Urine Bacteria Urine Mucus Coronavirus (PCR) - Diagnostic Findings Chest x-ray: image reviewed Assessment and Plan Assessment: Acute hypoxemic respiratory failure, secondary to prior history of COVID 19 pneumonia. Acute upper GI bleed with hematemesis and coffee ground emesis. Poor historian Rule out community-acquired pneumonia versus hospital-acquired pneumonia, right upper lobe and left lower lobe. History of chronic atrial fibrillation. Anorexia cachexia/syndrome of chronic illness. History of COPD. Rule out dementia. Acute dehydration and acute renal fire. Hypothyroidism. History of hyperlipidemia. Status post permanent pacemaker insertion. Plan: Plan dated 03/13/2020. Currently, the patient is on Rocephin as an antibiotic for his possible pneumonia. Clinically, the patient looks very chronically ill. He is very malnourished. The patient is receiving oxygen therapy at 6 L/m by nasal cannula. He is also getting something for his nausea. Gastroenterology has been consulted for his GI bleed. It's very difficult to get any additional history on this patient. He did test positive again for COVID 19 infection. Today's CBC shows a white count of 22.1, hemoglobin 9.9, hematocrit 34.1, and platelet count 613,000. In addition, the urine suggest a possible urinary tract infection. Sodium was 142, potassium 4.3, chlorides 100, CO2 31, anion gap 11, BUN and creatinine were 22 and 0.81, and the rest of the labs are reviewed. Prognosis is poor. The patient is a no code patient. I believe that's appropriate. We will continue to follow. Time with Patient: Greater than 30
--- NOTE | 2020-03-13 15:10 | CONS ---
CONSULTATION DATE OF DICTATION: March 13, 2020. REASON FOR CONSULTATION: Nausea, vomiting and coffee-grounds emesis. HISTORY OF PRESENT ILLNESS: The patient is an 84-year-old white male came into the emergency room yesterday with nausea, vomiting, associated with some coffee-ground emesis. The patient is a very poor historian. He was recently diagnosed with COVID-19 infection and [facility]. While in the [facility], he has been having some upper abdominal discomfort associated with several episodes of nausea, vomiting and a couple of episodes of coffee-ground emesis and hence he was brought into the emergency room yesterday and subsequently admitted to the hospital for further evaluation. In the ER, he did have a chest x-ray that showed possible right upper lobe pneumonia and was started on broad-spectrum antibiotics. As per the nursing staff, the patient has been spontaneously spitting up some bilious emesis also yesterday and today apparently he had some lunch and his symptoms continued to persist since then. There is no obvious bleeding noted today. The patient complains of diffuse abdominal pain. He reports no rectal bleeding or melena. The patient was admitted to hospital 2 weeks ago for fecal impaction and rectal bleeding. At that time, he was noted to have a hemoglobin of 9.4 g/dL. He was treated symptomatically with some enemas and was discharged home. Patient at that time did not have any endoscopic evaluation. PAST MEDICAL HISTORY: Significant for hypertension, hypothyroidism, atrial fibrillation, hypercholesteremia. MEDICATIONS: Medications at home include Lipitor, vitamin D3, Atrovent, Synthroid, multivitamin, omega-3 fatty acids, aspirin, and Tylenol No.3. ALLERGIES: POTASSIUM and ADHESIVE TAPE. PAST SURGICAL HISTORY: Pacemaker, cholecystectomy. SOCIAL HISTORY: No smoking, no alcohol use. FAMILY HISTORY: Unremarkable. REVIEW OF SYSTEMS: CARDIOPULMONARY: He does complain of some shortness of breath. GENITOURINARY: No dysuria or hematuria. MUSCULOSKELETAL: Reports no symptoms. NEUROLOGY: Appears slightly confused and mild dementia. PSYCHIATRIC: Unremarkable. ENT/VISION: Unremarkable. CONSTITUTIONAL: Appears that he had lost some weight, but no fever, chills, night sweats. PHYSICAL EXAMINATION: He is somewhat uncomfortable because of the nausea, vomiting, but vital signs are stable. Blood pressure is 112/88, pulse rate 106, and temperature 97.7. HEENT EXAMINATION: Unremarkable. Conjunctivae pink. Sclerae anicteric. Oral cavity, no lesions. NECK: No JVD or lymph node enlargement. CHEST: Was clear auscultation. HEART: Regular rate and rhythm. ABDOMEN: Is slightly distended. There was tenderness in the epigastric area and as soon as the abdomen was being palpated patient had several episodes of small amount of bilious emesis noted. NEURO: He is alert, oriented to name, but not to place or time. LABS: Labs done, WBC was 19.4 yesterday, today it is 22.5, hemoglobin is 9.9, platelets are 613. BUN is 22, creatinine 0.81. AST and ALT, T bilirubin and alkaline phosphatase are all within normal limits. Lipase is 135. He did have a chest x-ray done that showed right upper lobe pneumonia. IMPRESSION: 1. Nausea, vomiting with coffee-grounds emesis for the last 2 or 3 days duration. The patient is having multiple episodes of bilious emesis presently and had only 2 episodes of coffee-ground emesis yesterday before he came to the emergency room. Hemoglobin remains stable at 9.9 g/dL. Rule out upper GI pathology including peptic ulcer disease. 2. Pneumonia, on broad-spectrum antibiotics. 3. History of chronic atrial fibrillation, on no anticoagulation. 4. Elevated BUN and creatinine secondary to prerenal azotemia, presently receiving IV hydration. 5. History of dementia. 6. History of chronic obstructive pulmonary disease. 7. Hypothyroidism. RECOMMENDATIONS: 1. Continue with Protonix 40 mg twice daily. 2. Continue with broad-spectrum antibiotics. 3. Keep him n.p.o. for now. 4. Because of the persistent nausea, vomiting, we will insert an NG tube and also obtain abdominal x-ray to rule out any bowel obstruction. 5. Repeat labs in the morning. 6. Will follow with you closely. Thank you for this consultation. MMODL / IJN: [id number] /
--- NOTE | 2020-03-13 17:33 | XR ---
KUB HISTORY: Abdominal pain and distention Frontal KUB submitted and correlated to prior abdomen 02/22/2020 Abdominal aortic aneurysm is again noted. There is an NG tube which has been placed in the interval, distal tip is overlying the heart. Retrocardiac density obscures the left hemidiaphragm. There are so me distended loops of bowel present. No pneumoperitoneum. Spinal curvature is present. Calcification is again noted over the region of the left kidney. Some retained fecal debris is present in the desce nding colon region. IMPRESSION: Indeterminate position of the NG tube. Left lower lobe atelectasis versus pneumonia. Ther e may be underlying ileus, difficult to exclude obstruction. Abdominal aortic aneurysm. A Red level critical message alert has been initiated for Dinorah Queen via the [employer] on 03/13/2020 3:44 PM. This message alert has been sent to Dinorah Queen via the preferences provided by the clinician for the receipt of Radiology Critical Findings. Message ID [id number].
[2020-03-13] MEDS: GABAPENTIN 100 MG CAP PO SCH ×2 (21:01→23:40)
[2020-03-13] MEDS: ATORVASTATIN 10 MG TAB PO SCH (21:01)
[2020-03-14] MEDS: LEVOTHYROXINE 50 MCG TAB PO SCH (05:07)
[2020-03-14] MEDS: SODIUM CHLORIDE 0.9% 1,000 ML IV SCH ×2 (06:54→18:51)
[2020-03-14 08:20] LABS: Glucose,Whole Blood 105 mg/dL (75-99)
--- NOTE | 2020-03-14 08:30 | XR ---
Abdomen HISTORY: Ileus, NG tube placement Frontal view the abdomen submitted NG tube shows a stable position, distal tip is overlying the retrocardiac region and is not within th e stomach. Basilar airspace disease is suspected. There is aortic aneurysm. Retained fecal debris is noted. Air-filled loops of bowel are again noted with some distention. IMPRESSION: Indeterminate NG tube placement. Aortic aneurysm. Ileus, correlate to exclude obstruction . Correlate for pneumonia.
[2020-03-14] MEDS: PANTOPRAZOLE 40 MG/10 ML VIAL IV SCH ×2 (09:03→20:37)
[2020-03-14] MEDS: MULTIVITAMINS, THERA 1 EACH TAB PO SCH (09:03)
[2020-03-14] MEDS: ACETAMINOPHEN TAB 325 MG TAB PO PRN ×2 (09:03→15:50)
[2020-03-14] MEDS: ASPIRIN 81 MG PO SCH (09:03)
--- NOTE | 2020-03-14 11:02 | P.PN ---
Subjective 82-year-old male [facility]em[facility]. Patient doesn't have any GI bleed at this time patient doesn't have any blood in the stools. Stools or hematemesis or hematochezia. Patient was a recently discharged from the hospital about couple weeks ago after he was treated hypoxemia related to covid 19. A she is alert oriented 1. His baseline is unknown, patient appears to be nonfunctional cachectic malnourished at baseline. His allyssa line functionality is not clear at this time. She cannot provide any history to me. Patient doesn't have any fever chills patient is presently on 4 L of oxygen with bibasilar crackles. 6 was obtained which is showing infiltrates mostly consistent with Covid 19 pneumonia. Patient creatinine is 0.9 his baseline for his body mass should be around 0.2. Patient appears to be dehydrated will be started on IV fluids will also obtain a BNP clinically doesn't appear to be in CHF patient does have leukocytosis no fever or cannot completely rule out a secondary bacterial pneumonia, patient will be started on ceftriaxone 1 g daily. Patient is also tachycardic will obtain a EKG 03/13/2020 Patient respiratory status is bit worse and patient is requiring more oxygen today pulmonary was consulted. Patient remains bit tachycardic in atrial fibrillation. Patient apparently makes his own decision although I do not believe we can make his own decision 03/14/2020 Patient presently has an NG tube bit more awake today. Respiratory status remains at the baseline patient is a bit less confused today. Patient has significant drainage from the NG tube patient will be started on IV fluids. Constitutional: Denied any fatigue denied any fever. Cardio vascular: denied any chest pain, palpitations Gastrointestinal denied any nausea vomiting Pulmonary: Denied any shortness of breath cough Neurologic denied any new focal deficits All inpatient medications were reviewed and appropriate changes in these medications as dictated in the interval history and assessment and plan. Objective - Vital Signs Vital signs: Vital Signs Temp 96.9 F L 03/13/20 14:00 Pulse 99 03/14/20 06:25 Resp 20 03/13/20 20:00 BP 120/82 03/14/20 06:25 Pulse Ox 92 L 03/14/20 08:00 Intake & Output 03/13/20 03/14/20 03/14/20 18:59 06:59 18:59 Output Total 350 950 Balance -350 -950 Output: Gastric Drainage 250 Urine 350 700 Straight 350 350 Other: Voiding Method Indwelling Catheter - Exam PHYSICAL EXAMINATION: GENERAL: The patient is alert and oriented x2, not in any acute distress. And built cachectic male, with contractures. Will place HEENT: Pupils are round and equally reacting to light. EOMI. No scleral icterus. No conjunctival pallor. Normocephalic, atraumatic. No pharyngeal erythema. No thyromegaly. CARDIOVASCULAR: S1 and S2 present. No murmurs, rubs, or gallops. PULMONARY: Chest is clear to auscultation, no wheezing or crackles. ABDOMEN: Soft, nontender, nondistended, normoactive bowel sounds. No palpable organomegaly. MUSCULOSKELETAL: No joint swelling or deformity. EXTREMITIES: No cyanosis, clubbing, or pedal edema. NEUROLOGICAL: Related to have any focal deficits significant muscle atrophy SKIN: No rashes - Labs CBC & Chem 7: 03/13/20 06:40 03/12/20 00:29 Labs: Abnormal Lab Results - Last 24 Hours (Table) 03/14/20 Range/Units 08:19 POC Glucose (mg/dL) 105 H (75-99) mg/dL Microbiology - Last 24 Hours (Table) 03/12/20 16:50 Urine Culture - Final Urine,Voided Assessment and Plan Plan: -Dehydration and acute renal failure: Prerenal azotemia most probably secondary to poor by mouth intake which is again secondary to dementia which appears to be pretty advanced. Improved patient's respiratory status is bit worse -Acute upper GI bleed and patient is still having nausea vomiting GI was consulted and patient is on Protonix, patient had acute blood loss anemia from upper GI bleed has an NG tube will with significant drainage from the NG tube. -Hypoxic respiratory failure: Secondary bacterial pneumonia cannot be ruled out patient was started on ceftriaxone. Patient was recently treated for covid 19. -Tachycardia will obtain EKG tachycardia is probably secondary to dehydration - chronic A. fib, Presently A. fib with rapid ventricular rate, patient is sedated resumed on rate control medication or any anticoagulation at this time. Moderate malnutrition -History of COPD he used to be a smoker in the past -Possible dementia Since there is no active GI bleed and patient is high risk for DVT patient was started on subcutaneous heparin for DVT prophylaxis. Patient prognosis is extremely poor.
[2020-03-14 11:32] LABS: HCT 30.8 % (39.0-53.0); HGB 9.1 gm/dL (13.0-17.5); Hypochromasia Marked; MCHC 29.7 g/dL (31.0-37.0); MCV 94.3 fL (80.0-100.0); Mean Platelet Volume 8.9; Platelet Count 454 k/uL (150-450); Poikilocytosis Slight; RBC 3.26 m/uL (4.30-5.90); RDW 15.7 % (11.5-15.5); WBC 18.5 k/uL (3.8-10.6)
[2020-03-14 11:54] LABS: Glucose,Whole Blood 83 mg/dL (75-99)
[2020-03-14 12:08] LABS: Band Neutrophils % 1 %; Lymphocytes # (M) 0.74 k/uL (1.0-4.8); Monocytes # (M) 0.74 k/uL (0-1.0); Neutrophils % (M) 91 %; Nucleated Red Blood Cells 0 /100 WBC (0-0); Total Cells Counted 100
[2020-03-14 12:12] LABS: Anisocytosis (M) Present
--- NOTE | 2020-03-14 13:25 | P.PN ---
Subjective Progress Note Date: 03/14/20 Principal diagnosis: Nausea, vomiting and coffee-ground emesis This patient is an 84-year-old white male who came into the emergency room with complaints of nausea vomiting associated with some coffee-ground emesis. He has been recently diagnosed with [place] 19 infection was transferred [facility]. While he was there he was having some upper abdominal discomfort associated with several episodes of nausea vomiting and reported coffee-ground emesis. He has been started on broad spectrum antibiotics for possible right upper lobe pneumonia. Yesterday the patient had an increase in distention in his abdomen with pelvis emesis. He's had no further reports of any coffee-ground emesis or further GI bleed. The patient had a NG tube placed yesterday, followed by a repeat x-rays which showed the distal tip not to be in the stomach. Gen. surgery was asked to evaluate the patient including placement for NG tube. Objective - Vital Signs Vital signs: Vital Signs Temp 96.9 F L 03/13/20 14:00 Pulse 99 03/14/20 06:25 Resp 20 03/13/20 20:00 BP 120/82 03/14/20 06:25 Pulse Ox 92 L 03/14/20 08:00 Intake & Output 03/13/20 03/14/20 03/14/20 18:59 06:59 18:59 Output Total 350 950 Balance -350 -950 Output: Gastric Drainage 250 Urine 350 700 Straight 350 350 Other: Voiding Method Indwelling Catheter - Exam General appearance: The patient is alert, oriented to self and place, appears in no acute distress. HET: Head is normocephalic and atraumatic. Conjunctiva pink. Sclera anicteric. Neck: Supple without lymphadenopathy. Abdomen: Soft, thin, nontender, nondistended with bowel sounds. No guarding or rigidity. Extremities: Normal skin color and turgor. No pedal edema Neurological: No focal deficits. Alert and oriented 2. - Labs CBC & Chem 7: 03/14/20 10:48 03/12/20 00:29 Labs: Abnormal Lab Results - Last 24 Hours (Table) 03/14/20 Range/Units 08:19 POC Glucose (mg/dL) 105 H (75-99) mg/dL Microbiology - Last 24 Hours (Table) 03/12/20 16:50 Urine Culture - Final Urine,Voided Assessment and Plan (1) Nausea & vomiting Narrative/Plan: This is a male patient who came in with episodes of nausea vomiting and coffee- ground emesis for 2-3 days duration. The patient is having multiple episodes of bilious emesis presently and had only 2 episodes of coffee-ground emesis before coming into the emergency room. His hemoglobin has remained stable. Rule out upper GI pathology including peptic ulcer disease. Patient had increased abdominal distention therefore a NG tube was placed. He has had approximately 650 mL of bolus drainage. His abdominal distention and pain has improved. He has had no further episodes of nausea or vomiting. Current Visit: Yes Status: Acute Code(s): R11.2 - NAUSEA WITH VOMITING, UNSPECIFIED SNOMED Code(s): 41138541 (2) Coffee ground emesis Current Visit: Yes Status: Acute Code(s): K92.0 - HEMATEMESIS SNOMED Co de(s): 31999530 (3) Pneumonia Narrative/Plan: On broad-spectrum antibiotics Current Visit: Yes Status: Acute Code(s): J18.9 - PNEUMONIA, UNSPECIFIED ORGANISM SNOMED Code(s): 751918541 (4) COVID-19 virus infection Current Visit: Yes Status: Acute Code(s): U07.1 - COVID-19 SNOMED Code(s): 412773021 Plan: 1. Continue with Protonix 40 mg twice daily 2. Continue broad-spectrum antibiotics 3. Keep patient nothing by mouth 4. Because of persistent nausea and vomiting NG tube ordered with repeat x-ray 5. Gen. surgery consulted for abdominal distention and evaluation of NG tube pl acement 6. Discussion of recommendation for upper endoscopy was had with patient's son, he states his father will make the decisions and dates his father does not want to proceed with any upper or lower endoscopies 7. Repeat CBC BMP 8. We will continue to follow closely Dr. Priscila Crespo I agree with the dictator's note, documented as a scribe by Dinorah Ahuja.
--- NOTE | 2020-03-14 14:20 | XR ---
EXAMINATION TYPE: XR chest 1V portable DATE OF EXAM: 03/14/2020 COMPARISON: Abdomen same date, chest x-ray 03/12/2020 HISTORY: NG tube placement. TECHNIQUE: Single frontal view of the chest is obtained. FINDINGS: The tip of the NG tube is projecting at the level over the gastroesophageal junction level but is indeterminate. Consider advancing the tube with repeat abdomen film to assess for placement. Bilateral airspace disease is again noted. There are overlying artifacts. Aorta is dense. No evident pneumothorax or pleural effusion. IMPRESSION: NG tube as described
--- NOTE | 2020-03-14 15:14 | P.GSCN ---
History of Present Illness Consult date: 03/14/20 History of present illness: CHIEF COMPLAINT: GI bleed HISTORY OF PRESENT ILLNESS: This 84-year-old male with a known history of hypertension, hypothyroidism, atrial fibrillation and hyperlipidemia. He presented to the emergency room with complaints of nausea vomiting and coffee- ground emesis. Patient is a poor historian. He was recently diagnosed with Covid 19 infection. He is followed by GI service as well as pulmonary service. Surgical service consult was placed due to increase in abdominal distention and questionable placement of NG tube. Patient did have 650 mL of ileus drainage noted. Patient was seen and examined with Dr. Beatty. Dr. Beatty had reviewed the x-rays. And advised nursing staff to advance the NG tube about 3 cm. Patient is lying in bed comfortably. No distress. Per GI service note it appears that patient has refused endoscopies. PAST MEDICAL HISTORY: See list. PAST SURGICAL HISTORY: See list. MEDICATIONS: See list. ALLERGIES: See list. SOCIAL HISTORY: No illicit drug use. REVIEW OF SYSTEMS: CONSTITUTIONAL: Denies fever or chills. HEENT: Denies blurred vision, vision changes, or eye pain. Denies hemoptysis CARDIOVASCULAR: Denies chest pain or pressure. RESPIRATORY: No shortness of breath. GASTROINTESTINAL: See HPI for pertinent findings HEMATOLOGIC: Denies bleeding disorders. GENITOURINARY: Denies any blood in urine or increased urinary frequency. SKIN: Denies pruitis. Denies rash. PHYSICAL EXAM: VITAL SIGNS: Reviewed GENERAL: Well-developed in no acute distress. HEENT: No sclera icterus. Extraocular movements grossly intact. Moist buccal mucosa. Head is atraumatic, normocephalic. No nasal drainage. ABDOMEN: Soft. Mildly distended NEUROLOGIC: Cranial nerves II through XII grossly intact. LABORATORY DATA: WBC 18.5 hemoglobin 9.1 platelets 454 Covid detected IMAGING: Abdominal x-ray indeterminate NG tube placement. Aortic aneurysm. Ileus, correlate to exclude obstruction. Correlate for pneumonia ASSESSMENT: 1. Abdominal distention and concerns about NG tube placement 2. Nausea vomiting with coffee-ground emesis 3. Covid 19 infection PLAN: -NG tube advanced. Repeat chest x-ray ordered -Continue supportive care Thank you for this consultation Physician Metal Dresser note has been reviewed by physician. Signing provider agrees with the documented findings, assessment, and plan of care. Past Medical History Past Medical History: Atrial Fibrillation Additional Past Medical History / Comment(s): pacemaker History of Any Multi-Drug Resistant Organisms: None Reported Past Surgical History: Cholecystectomy, Pacemaker Past Anesthesia/Blood Transfusion Reactions: No Reported Reaction Type of Cardiac Device: Permanent Pacemaker, Unknown Device Placement Date:: unknown Past Psychological History: No Psychological Hx Reported Smoking Status: Former smoker Past Alcohol Use History: None Reported Past Drug Use History: None Reported Medications and Allergies Home Medications Medication Instructions Recorded Confirmed Type Acetaminophen Tab [Tylenol] 650 mg PO Q4H PRN 02/21/20 03/12/20 History Aspirin 81 mg PO DAILY@0900 02/21/20 03/12/20 History Atorvastatin Calcium [Lipitor] 10 mg PO HS@209902/21/20 03/12/20 History Cholecalciferol [Vitamin D3 (25 1,000 unit PO HS@209902/21/20 03/12/20 History Mcg = 1000 Iu)] Ipratropium Edna [Atrovent Hfa] 2 puff INHALATION RT-QID 02/21/20 03/12/20 History Ipratropium-Albuterol Nebulize 3 ml INHALATION RT-Q4H PRN 02/21/20 03/12/20 History [Duoneb 0.5 mg-3 mg/3 ml Soln] Levothyroxine Sodium [Synthroid] 50 mcg PO DAILY@0600 02/21/20 03/12/20 History Multivitamins, Thera [Multivitamin 1 tab PO DAILY@0900 02/21/20 03/12/20 History (formulary)] [place]-3 Fatty Acids/Fish Oil [Fish 1 cap PO BID@0900,209902/21/20 03/12/20 History Oil 1,000 mg Softgel] Acetaminophen-Codeine 300-30mg 1 tab PO Q8H PRN 03/12/20 03/12/20 History [Tylenol w/codeine #3] Gabapentin [Neurontin] 100 mg PO HS@209903/12/20 03/12/20 History Lactose-Reduced Food [Ensure Plus] 1 can PO BID@0900,1300,209903/12/20 03/12/20 History Ranitidine HCl 150 mg PO DAILY@0600 03/12/20 03/12/20 History Allergies Allergy/AdvReac Type Severity Reaction Status Date / Time adhesive tape Allergy Unknown Verified 03/12/20 08:32 liquid potoassium Allergy Unknown Uncoded 02/21/20 13:33 Surgical - Exam Vital Signs Temp Pulse Resp BP 97.7 F 114 H 18 112/88 03/12/20 00:11 03/12/20 00:11 03/12/20 00:11 03/12/20 00:11 Results - Labs 03/14/20 10:48 03/12/20 00:29 Abnormal Lab Results - Last 24 Hours (Table) 03/14/20 03/14/20 Range/Units 08:19 10:48 WBC 18.5 H (3.8-10.6) k/uL RBC 3.26 L (4.30-5.90) m/uL Hgb 9.1 L (13.0-17.5) gm/dL Hct 30.8 L (39.0-53.0) % MCHC 29.7 L (31.0-37.0) g/dL RDW 15.7 H (11.5-15.5) % Plt Count 454 H (150-450) k/uL Neutrophils # (Manual) 17.00 H (1.3-7.7) k/uL Lymphocytes # (Manual) 0.74 L (1.0-4.8) k/uL POC Glucose (mg/dL) 105 H (75-99) mg/dL Microbiology - Last 24 Hours (Table) 03/12/20 16:50 Urine Culture - Final Urine,Voided
--- NOTE | 2020-03-14 16:28 | P.PN ---
Subjective Progress Note Date: 03/14/20 Principal diagnosis: Dyspnea, cough, hypoxia This is an 84-year-old male who is seen in the emergency room on March 12 for mental status changes, and GI bleed. Apparently, the patient has been having issues with hematemesis. Not a particularly good historian. We are apparently consulted because of possible pneumonia. The patient has a prior history of COVID 19 infection. Currently, he is nauseated. The nurse was going to get him an antiemetic. He is a very cachectic appearing gentleman who is chronically ill, and not a very good historian. He apparently had some blood in his vomitus as well as coffee ground emesis according to the emergency room physician. A c hest x-ray shows a possible right upper lobe pneumonia as well as some infiltrate or atelectasis at the left again he is not a particularly good historian and getting any history as it relates to cough, shortness of breath, chest congestion, phlegm production, fever, and other symptoms which might s uggest pneumonia is very difficult. He apparently was in the hospital a number of weeks ago was discharged with a diagnosis of COVID 19 pneumonia and associated hypoxemic respiratory failure. He apparently again tested positive for COVID 19 infection on this admission. Currently, on 6 L nasal cannula, his saturations are only 90%. Again, he is very chronically ill looking, with profound cachexia. On 03/14/2020 patient seen in follow-up on medical floor, he is resting comfortably in bed, he is currently on 4 L of oxygen pulse ox is 92-95%, no fever or chills, blood pressure stable, 0.9 normal saline infusing at a rate of 75 ML per hour, he is awake and alert, his any worsening dyspnea, his biggest complaint is discomfort from his sacral and buttock area. Patient has a right hip wound with a wound VAC in place. Denies any worsening dyspnea, today's chest x-ray has been reviewed, showing bilateral airspace disease, patient has NG tube has been 250 of gastric output in the last 24 hours with 350 on day shift since this morning, today's hemoglobin is 9.1. Surgery has been consulted for abdominal distention and concerns about NG tube placement which did not appear to be properly placed on the chest x-ray. NG tube has been advanced. Patient is awake and alert, appears to be in no acute distress. Breathing comfortably. Patient is on antibiotics in the form of Rocephin. Urine culture show no growth. Objective - Vital Signs Vital signs: Vital Signs Temp 97.6 F 03/14/20 14:00 Pulse 85 03/14/20 14:00 Resp 16 03/14/20 14:00 BP 121/92 03/14/20 14:00 Pulse Ox 92 L 03/14/20 14:00 Intake & Output 03/13/20 03/14/20 03/14/20 18:59 06:59 18:59 Output Total 350 950 350 Balance -350 -950 -350 Output: Gastric Drainage 250 350 Urine 350 700 Straight 350 350 Other: Voiding Method Indwelling Catheter Indwelling Catheter - Exam GENERAL EXAM: Alert, cachectic, 84-year-old white male, on 4 L of oxygen, comfortable in no apparent distress. HEAD: Normocephalic/atraumatic. EYES: Normal reaction of pupils, equal size. Conjunctiva pink, sclera white. NOSE: Clear with pink turbinates. THROAT: No erythema or exudates. NECK: No masses, no JVD, no thyroid enlargement, no adenopathy. CHEST: No chest wall deformity. Symmetrical expansion. LUNGS: Equal air entry with bilateral crackles CVS: Regular rate and rhythm, normal S1 and S2, no gallops, no murmurs, no rubs ABDOMEN: Soft, nontender. No hepatosplenomegaly, normal bowel sounds, no guarding or rigidity. EXTREMITIES: No clubbing, no edema, no cyanosis, 2+ pulses and upper and lower extremities. MUSCULOSKELETAL: Muscle strength and tone normal. SPINE: No scoliosis or deformity SKIN: No rashes, right hip wound with wound VAC in place CENTRAL NERVOUS SYSTEM: Alert and oriented -3. No focal deficits, tone is normal in all 4 extremities. PSYCHIATRIC: Alert and oriented -3. Appropriate affect. Intact judgment and insight. - Labs CBC & Chem 7: 03/14/20 10:48 03/12/20 00:29 Labs: Abnormal Lab Results - Last 24 Hours (Table) 03/14/20 03/14/20 Range/Units 08:19 10:48 WBC 18.5 H (3.8-10.6) k/uL RBC 3.26 L (4.30-5.90) m/uL Hgb 9.1 L (13.0-17.5) gm/dL Hct 30.8 L (39.0-53.0) % MCHC 29.7 L (31.0-37.0) g/dL RDW 15.7 H (11.5-15.5) % Plt Count 454 H (150-450) k/uL Neutrophils # (Manual) 17.00 H (1.3-7.7) k/uL Lymphocytes # (Manual) 0.74 L (1.0-4.8) k/uL POC Glucose (mg/dL) 105 H (75-99) mg/dL Microbiology - Last 24 Hours (Table) 03/12/20 16:50 Urine Culture - Final Urine,Voided Assessment and Plan Plan: Assessment: #1. Acute hypoxic respiratory failure, multifactorial, related to prior history of carotid 19 pneumonia, rule out possibility of bacterial pneumonia and sepsis, with possible source including urinary tract, pneumonia or wounds #2. Acute upper GI bleeding with coffee ground emesis and hematemesis, NG tube has been inserted #3. Low possibility of ileus #4. Possibility of community acquired pneumonia versus hospital-acquired pneumonia, in the right upper lobe and left lower lobe #5. History of chronic atrial fibrillation #6. Anorexia/cachexia syndrome of chronic venous #7. Rule out dementia #8. Acute dehydration and acute renal failure #9. Hypothyroidism #10. Severe general medical debility #11. Protein calorie malnutrition Plan: We'll obtain procalcitonin level, continue current antibiotics, maintain aspiration precautions, continue current antibiotics, she has had no fever or c hills, his NG tube has been repositioned, in place to low intermittent suction, GI service is following, the surgical service is following. Monitor NG tube output, and characteristics, monitor daily CBC. Obtain follow-up chest x-ray tomorrow. Anticoagulation is currently on hold in view of recent history of coffee-ground emesis. I performed a history & physical examination of the patient and discussed their management with my nurse practitioner, Ora Zarate. I reviewed the nurse practitioner's note and agree with the documented findings and plan of care. Lung sounds are positive for diminished breath sounds The findings and the impression was discussed with the patient. I attest to the documentation by the nurse practitioner. Time with Patient: Less than 30
[2020-03-14 16:51] LABS: Glucose,Whole Blood 122 mg/dL (75-99)
[2020-03-14] MEDS: DEXTROSE 5%-0.9% NACL 1,000 ML IV SCH (18:12)
[2020-03-14] MEDS: ATORVASTATIN 10 MG TAB PO SCH (20:37)
[2020-03-14] MEDS: GABAPENTIN 100 MG CAP PO SCH (20:37)
[2020-03-14 20:38] LABS: Glucose,Whole Blood 148 mg/dL (75-99)
[2020-03-14 23:09] LABS: African American GFR (CKD) 87 (>60 ml/min/1.73 sqM); Anion Gap 11 mmol/L; Blood Urea Nitrogen 32 mg/dL (9-20); Calcium 8.3 mg/dL (8.4-10.2); Carbon Dioxide 22 mmol/L (22-30); Chloride 115 mmol/L (98-107); Glucose 166 mg/dL (74-99); Non-African American GFR(CKD) 75 (>60 ml/min/1.73 sqM); Potassium 4.8 mmol/L (3.5-5.1); Sodium 148 mmol/L (137-145)
[2020-03-15] MEDS: ACETAMINOPHEN TAB 325 MG TAB PO PRN ×2 (05:03→21:59)
[2020-03-15] MEDS: LEVOTHYROXINE 50 MCG TAB PO SCH (05:03)
[2020-03-15 06:44] LABS: Glucose,Whole Blood 140 mg/dL (75-99)
[2020-03-15] MEDS: SODIUM CHLORIDE 0.9% 1,000 ML IV SCH (07:03)
[2020-03-15] MEDS: DEXTROSE 5%-0.9% NACL 1,000 ML IV SCH ×2 (07:04→19:43)
[2020-03-15] MEDS: ASPIRIN 81 MG PO SCH (07:24)
[2020-03-15] MEDS: MULTIVITAMINS, THERA 1 EACH TAB PO SCH (07:24)
[2020-03-15] MEDS: PANTOPRAZOLE 40 MG/10 ML VIAL IV SCH ×2 (07:24→22:01)
--- NOTE | 2020-03-15 08:19 | XR ---
EXAMINATION TYPE: XR chest 1V DATE OF EXAM: 03/15/2020 COMPARISON: Prior chest to 03-14-20 HISTORY: NG tube placement TECHNIQUE: Single frontal view of the chest is obtained. FINDINGS: NG tube has been advanced and is coursing towards the left upper quadrant, distal tip not included on exam. Bilateral airspace disease persists. No evident pneumothorax or sizable effusion. C ardiac style silhouette is stable. Aorta is dense. Pacemaker is stable. There are overlying leads. IMPRESSION: NG tube overlying appropriate position. Correlate for pneumonia, pulmonary edema.
[2020-03-15 09:14] LABS: HCT 28.5 % (39.6-50.0); HGB 8.5 g/dL (13.0-17.0); MCH 27.9 pg (27.0-32.0); MCHC 29.8 g/dL (32.0-37.0); MCV 93.4 fL (80.0-97.0); Mean Platelet Volume 10.1 fL (9.5-12.2); Platelet Count 438 X 10*3/uL (140-440); RBC 3.05 X 10*6/uL (4.40-5.60); WBC 15.94 X 10*3/uL (4.50-10.00)
[2020-03-15 09:46] LABS: African American GFR (CKD) 70.6 (60.0-200.0); Anion Gap 9.2 mmol/L (4.00-12.00); BUN/Creat Ratio 29.09 Ratio (12.00-20.00); Carbon Dioxide 23.8 mmol/L (21.6-31.8); Non-African American GFR(CKD) 60.9 (60.0-200.0); Potassium 3.8 mmol/L (3.5-5.5)
[2020-03-15 11:31] LABS: Glucose,Whole Blood 123 mg/dL (75-99)
--- NOTE | 2020-03-15 12:09 | P.PN ---
Subjective Progress Note Date: 03/15/20 Principal diagnosis: Nausea, vomiting and coffee-ground emesis This patient is an 84-year-old white male who came into the emergency room with complaints of nausea vomiting associated with some coffee-ground emesis. He has been recently diagnosed with [place] 19 infection [facility] While he was there he was having some upper abdominal discomfort associated with several episodes of nausea vomiting and reported coffee-ground emesis. He has been started on broad spectrum antibiotics for possible right upper lobe pneumonia. NG tube remains intact with 200-300 MLs of output per shift of bile drainage. Abdominal distention improved, patient denies any abdominal pain. He has had no further episodes of nausea or vomiting. Objective - Vital Signs Vital signs: Vital Signs Temp 97.7 F 03/15/20 09:40 Pulse 120 H 03/15/20 09:40 Resp 20 03/15/20 09:40 BP 93/57 03/15/20 09:40 Pulse Ox 92 L 03/15/20 09:40 Intake & Output 03/14/20 03/15/20 03/15/20 18:59 06:59 18:59 Output Total 350 725 Balance -350 -725 Output: Gastric Drainage 350 200 Drainage 200 Left 200 Urine 325 Other: Voiding Method Indwelling Catheter Indwelling Catheter - Exam General appearance: The patient is alert, oriented to self and place, appears in no acute distress. HET: Head is normocephalic and atraumatic. Conjunctiva pink. Sclera anicteric. Neck: Supple without lymphadenopathy. Abdomen: Soft, thin, nontender, nondistended with bowel sounds. No guarding or rigidity. Extremities: Normal skin color and turgor. No pedal edema Neurological: No focal deficits. Alert and oriented 2. - Labs CBC & Chem 7: 03/15/20 06:44 03/15/20 06:44 Labs: Abnormal Lab Results - Last 24 Hours (Table) 03/14/20 03/14/20 03/14/20 Range/Units 10:48 14:25 14:37 WBC (4.50-10.00) X 10*3/uL RBC (4.40-5.60) X 10*6/uL Hgb (13.0-17.0) g/dL Hct (39.6-50.0) % MCHC (32.0-37.0) g/dL RDW (11.5-14.5) % Neutrophils # (Manual) 17.00 H (1.3-7.7) k/uL Lymphocytes # (Manual) 0.74 L (1.0-4.8) k/uL Sodium 148 H (137-145) mmol/L Chloride 115 H (98-107) mmol/L BUN 32 H (9-20) mg/dL BUN/Creatinine Ratio (12.00-20.00) Ratio Glucose 166 H (74-99) mg/dL POC Glucose (mg/dL) (75-99) mg/dL Calcium 8.3 L (8.4-10.2) mg/dL Procalcitonin 1.02 H (0.02-0.09) ng/mL 03/14/20 03/14/20 03/15/20 Range/Units 16:50 20:36 06:40 WBC (4.50-10.00) X 10*3/uL RBC (4.40-5.60) X 10*6/uL Hgb (13.0-17.0) g/dL Hct (39.6-50.0) % MCHC (32.0-37.0) g/dL RDW (11.5-14.5) % Neutrophils # (Manual) (1.3-7.7) k/uL Lymphocytes # (Manual) (1.0-4.8) k/uL Sodium (137-145) mmol/L Chloride (98-107) mmol/L BUN (9-20) mg/dL BUN/Creatinine Ratio (12.00-20.00) Ratio Glucose (74-99) mg/dL POC Glucose (mg/dL) 122 H 148 H 140 H (75-99) mg/dL Calcium (8.4-10.2) mg/dL Procalcitonin (0.02-0.09) ng/mL 03/15/20 03/15/20 03/15/20 Range/Units 06:44 06:44 11:26 WBC 15.94 H (4.50-10.00) X 10*3/uL RBC 3.05 L (4.40-5.60) X 10*6/uL Hgb 8.5 L (13.0-17.0) g/dL Hct 28.5 L (39.6-50.0) % MCHC 29.8 L (32.0-37.0) g/dL RDW 16.0 H (11.5-14.5) % Neutrophils # (Manual) (1.3-7.7) k/uL Lymphocytes # (Manual) (1.0-4.8) k/uL Sodium 151 H (137-145) mmol/L Chloride 118 H (98-107) mmol/L BUN 32.0 H (9-20) mg/dL BUN/Creatinine Ratio 29.09 H (12.00-20.00) Ratio Glucose 144 H (74-99) mg/dL POC Glucose (mg/dL) 123 H (75-99) mg/dL Calcium 8.0 L (8.4-10.2) mg/dL Procalcitonin (0.02-0.09) ng/mL Assessment and Plan (1) Nausea & vomiting Narrative/Plan: This is a male patient who came in with episodes of nausea vomiting and coffee- ground emesis for 2-3 days duration. The patient is having multiple episodes of bilious emesis presently and had only 2 episodes of coffee-ground emesis before coming into the emergency room. His hemoglobin has remained stable. Rule out upper GI pathology including peptic ulcer disease. Patient had increased abdominal distention therefore a NG tube was placed. His abdominal distention and pain has improved. He has had no further episodes of nausea or vomiting. Current Visit: Yes Status: Acute Code(s): R11.2 - NAUSEA WITH VOMITING, UNSPECIFIED SNOMED Code(s): 30341561 (2) Coffee ground emesis Narrative/Plan: Patient has had no further episodes of coffee-ground emesis during this admission. Patient is refusing any endoscopies. Current Visit: Yes Status: Acute Code(s): K92.0 - HEMATEMESIS SNOMED Code(s): 96341857 (3) Pneumonia Narrative/Plan: On broad-spectrum antibiotics Current Visit: Yes Status: Acute Code(s): J18.9 - PNEUMONIA, UNSPECIFIED ORGANISM SNOMED Code(s): 432139841 (4) COVID-19 virus infection Current Visit: Yes Status: Acute Code(s): U07.1 - COVID-19 SNOMED Code(s): 680490882 Plan: 1. Continue with Protonix 40 mg twice daily 2. Continue broad-spectrum antibiotics medical management per primary team 3. Keep patient nothing by mouth 4. Continue NG tube intermittent suction. 5. Gen. surgery consulted for abdominal distention and evaluation of NG tube placement 6. Discussion of recommendation for upper endoscopy was had with patient's son, he states his father will make the decisions and dates his father does not want to proceed with any upper or lower endoscopies 7. Repeat CBC BMP 8. We will continue to follow closely Dr. Priscila Crespo I agree with the dictator's note, documented as a scribe by Dinorah Ahuja.
[2020-03-15] MEDS: DEXTROSE 5%-0.45% NACL 1,000 ML IV SCH ×2 (12:45→19:43)
--- NOTE | 2020-03-15 14:37 | P.PN ---
Subjective Progress Note Date: 03/15/20 Principal diagnosis: Shortness of breath. This is an 84-year-old male who is seen in the emergency room on March 12 for mental status changes, and GI bleed. Apparently, the patient has been having issues with hematemesis. Not a particularly good historian. We are apparently consulted because of possible pneumonia. The patient has a prior history of COVID 19 infection. Currently, he is nauseated. The nurse was going to get him an antiemetic. He is a very cachectic appearing gentleman who is chronically ill, and not a very good historian. He apparently had some blood in his vomitus as well as coffee ground emesis according to the emergency room physician. A chest x-ray shows a possible right upper lobe pneumonia as well as some infiltrate or atelectasis at the left again he is not a particularly good historian and getting any history as it relates to cough, shortness of breath, chest congestion, phlegm production, fever, and other symptoms which might sugg est pneumonia is very difficult. He apparently was in the hospital a number of weeks ago was discharged with a diagnosis of COVID 19 pneumonia and associated hypoxemic respiratory failure. He apparently again tested positive for COVID 19 infection on this admission. Currently, on 6 L nasal cannula, his saturations are only 90%. Again, he is very chronically ill looking, with profound cachexia. On 03/14/2020 patient seen in follow-up on medical floor, he is resting comfortably in bed, he is currently on 4 L of oxygen pulse ox is 92-95%, no fever or chills, blood pressure stable, 0.9 normal saline infusing at a rate of 75 ML per hour, he is awake and alert, his any worsening dyspnea, his biggest complaint is discomfort from his sacral and buttock area. Patient has a right hip wound with a wound VAC in place. Denies any worsening dyspnea, today's chest x-ray has been reviewed, showing bilateral airspace disease, patient has NG tube has been 250 of gastric output in the last 24 hours with 350 on day shift since this morning, today's hemoglobin is 9.1. Surgery has been consulted for abdominal distention and concerns about NG tube placement which did not appear to be properly placed on the chest x-ray. NG tube has been advanced. Patient is awake and alert, appears to be in no acute distress. Breathing comfortably. Patient is on antibiotics in the form of Rocephin. Urine culture show no growth. Progress note dated 01/12/2021. 84-year-old patient, was initially seen in the emergency room on March 12, for mental status changes and GI bleed. Currently, the patient's on 6 L high flow nasal cannula and saturations are 93%. The patient has a temperature of 97.5, heart rate of 116, respiratory rate of 20, and a blood pressure 117/82. White blood count is 15.94, hemoglobin 8.5, hematocrit 28.5, and platelet count 438,000. Sodium 151, potassium 3.8, chloride 118, and CO2 23.8. Anion gap is 9 BUN 32, and creatinine 1.1. Pro-calcitonin is elevated at 1.02. The patient should be on plain D5W for his elevated sodium and chloride. Chest x-ray shows an NG tube as well as diffuse bilateral airspace disease, which is essentially unchanged. Objective - Vital Signs Vital signs: Vital Signs Temp 97.5 F L 03/15/20 13:57 Pulse 116 H 03/15/20 13:57 Resp 20 03/15/20 13:57 BP 117/82 03/15/20 13:57 Pulse Ox 93 L 03/15/20 13:57 Intake & Output 03/14/20 03/15/20 03/15/20 18:59 06:59 18:59 Output Total 350 725 Balance -350 -725 Weight 45.359 kg Output: Gastric Drainage 350 200 Drainage 200 Left 200 Urine 325 Other: Voiding Method Indwelling Catheter Indwelling Catheter - Exam No acute distress, confused. Patient on nasal cannula at 6 L/m. HEENT examination is grossly unremarkable. Nasogastric tube is noted. Neck supple. Full range of motion. No adenopathy thyromegaly or neck vein distention. Cardiovascular examination reveals regular rhythm rate. S1-S2 normal. No S3 or S4. No discernible murmur noted. Heart sounds are distant and heart rate is 1 16 bpm. Lungs reveal bilateral rhonchi and crackles. Breath sounds equal bilaterally. No wheezes. Breath sounds are diminished throughout. Abdomen soft bowel sounds are heard. No masses or tenderness. Extremities are intact. No cyanosis clubbing or edema. Skin is without rash or lesion. Neurologic examination is difficult to assess. The patient moves all 4 extremities. - Labs CBC & Chem 7: 03/15/20 06:44 03/15/20 06:44 Labs: Abnormal Lab Results - Last 24 Hours (Table) 03/14/20 03/14/20 03/14/20 Range/Units 14:25 14:37 16:50 WBC (4.50-10.00) X 10*3/uL RBC (4.40-5.60) X 10*6/uL Hgb (13.0-17.0) g/dL Hct (39.6-50.0) % MCHC (32.0-37.0) g/dL RDW (11.5-14.5) % Sodium 148 H (137-145) mmol/L Chloride 115 H (98-107) mmol/L BUN 32 H (9-20) mg/dL BUN/Creatinine Ratio (12.00-20.00) Ratio Glucose 166 H (74-99) mg/dL POC Glucose (mg/dL) 122 H (75-99) mg/dL Calcium 8.3 L (8.4-10.2) mg/dL Procalcitonin 1.02 H (0.02-0.09) ng/mL 03/14/20 03/15/20 03/15/20 Range/Units 20:36 06:40 06:44 WBC 15.94 H (4.50-10.00) X 10*3/uL RBC 3.05 L (4.40-5.60) X 10*6/uL Hgb 8.5 L (13.0-17.0) g/dL Hct 28.5 L (39.6-50.0) % MCHC 29.8 L (32.0-37.0) g/dL RDW 16.0 H (11.5-14.5) % Sodium (137-145) mmol/L Chloride (98-107) mmol/L BUN (9-20) mg/dL BUN/Creatinine Ratio (12.00-20.00) Ratio Glucose (74-99) mg/dL POC Glucose (mg/dL) 148 H 140 H (75-99) mg/dL Calcium (8.4-10.2) mg/dL Procalcitonin (0.02-0.09) ng/mL 03/15/20 03/15/20 Range/Units 06:44 11:26 WBC (4.50-10.00) X 10*3/uL RBC (4.40-5.60) X 10*6/uL Hgb (13.0-17.0) g/dL Hct (39.6-50.0) % MCHC (32.0-37.0) g/dL RDW (11.5-14.5) % Sodium 151 H (137-145) mmol/L Chloride 118 H (98-107) mmol/L BUN 32.0 H (9-20) mg/dL BUN/Creatinine Ratio 29.09 H (12.00-20.00) Ratio Glucose 144 H (74-99) mg/dL POC Glucose (mg/dL) 123 H (75-99) mg/dL Calcium 8.0 L (8.4-10.2) mg/dL Procalcitonin (0.02-0.09) ng/mL Assessment and Plan Assessment: Acute hypoxemic respiratory failure, secondary to prior history of COVID 19 pneumonia. Acute upper GI bleed with hematemesis and coffee ground emesis. Poor historian Rule out community-acquired pneumonia versus hospital-acquired pneumonia, right upper lobe and left lower lobe. History of chronic atrial fibrillation. Anorexia cachexia/syndrome of chronic illness. History of COPD. Rule out dementia. Acute dehydration and acute renal fire. Hypothyroidism. History of hyperlipidemia. Status post permanent pacemaker insertion. Plan: Plan dated 03/13/2020. Currently, the patient is on Rocephin as an antibiotic for his possible pneumonia. Clinically, the patient looks very chronically ill. He is very malnourished. The patient is receiving oxygen therapy at 6 L/m by nasal cannula. He is also getting something for his nausea. Gastroenterology has been consulted for his GI bleed. It's very difficult to get any additional history on this patient. He did test positive again for COVID 19 infection. Today's CBC shows a white count of 22.1, hemoglobin 9.9, hematocrit 34.1, and platelet count 613,000. In addition, the urine suggest a possible urinary tract infection. Sodium was 142, potassium 4.3, chlorides 100, CO2 31, anion gap 11, BUN and creatinine were 22 and 0.81, and the rest of the labs are reviewed. Prognosis is poor. The patient is a no code patient. I believe that's appropriate. We will continue to follow. Plan dated 03/15/2020. The patient's overall prognosis is poor. NG tube has been inserted. Gastroenterology has been consulted for his GI bleed. The patient should be on D5W at 75-100 mL an hour, to correct his hypernatremia and hyperchloremia. This will also improve his renal function. Additional recommendations and suggestions are forthcoming. Chest x-ray is reviewed and shows diffuse bilateral infiltrates. Chest x-ray is unchanged. The patient remains on Rocephin daily. Time with Patient: Less than 30
[2020-03-15] MEDS: ALBUTEROL HFA INHALER INHALATION PRN ×2 (15:24→20:06)
--- NOTE | 2020-03-15 16:21 | P.PN ---
Progress Note - Text Progress Note Date: 03/15/20 Patient remains stable. The NG tube appears to be functioning. His prostate 5 mL in the canister of bilious fluid. Vital signs are stable. Abdomen soft. Patient RECEIVED nasogastric tube decompression
[2020-03-15 16:29] LABS: Glucose,Whole Blood 119 mg/dL (75-99)
[2020-03-15 20:20] LABS: Glucose,Whole Blood 141 mg/dL (75-99)
--- NOTE | 2020-03-15 21:01 | P.PN ---
Progress Note - Text Progress Note Date: 03/15/20 Chief Complaint: Bright red blood per rectum History of presenting complaint: This is a 84-year-old patient who follows with Dr. Gomez. Chronic stable medical conditions include hypothyroid, COPD, hyperlipidemia, chronic right- sided weakness Patient was in the hospital from February 20 through February 22. Had then presented with GI bleed. He was found to have a 9 cm abdominal aorta Cardizem. Vascular surgery was consulted. Patient did not want any further investigations neither for the GI bleed nor for the abdominal aorta aneurysm.. That time his son was consulted. He was okay with the same.. Now admitted with acute kidney injury from dehydration. Also had coffee-ground emesis. Along with nausea vomiting. NG tube was placed. But good output. Bilious. Dr. Priscila coon did speak with patient's son. As the patient does not want any intervention the son agrees with the same. Today-NG tube remains in place. Tired. Review of systems: Attempted for constitutional, cardiovascular, GI, pulmonary. relevant finding as above Active Medications Acetaminophen (Acetaminophen Tab 325 Mg Tab) 650 mg PO Q4H PRN PRN Reason: Fever and/ or Pain Last Admin: 03/15/20 05:03 Dose: 650 mg Documented by: Albuterol Sulfate (Albuterol Hfa Inhaler) 2 puff INHALATION RT-Q4H PRN PRN Reason: Shortness Of Breath Last Admin: 03/15/20 20:06 Dose: 2 puff Documented by: Aspirin (Aspirin 81 Mg) 81 mg PO DAILY@0900 [facility] Last Admin: 03/15/20 07:24 Dose: 81 mg Documented by: Atorvastatin Calcium (Atorvastatin 10 Mg Tab) 10 mg PO HS@2100 [facility] Last Admin: 03/14/20 20:37 Dose: 10 mg Documented by: Bisacodyl (Bisacodyl 10 Mg Supp) 10 mg RECTAL HS [facility] Gabapentin (Gabapentin 100 Mg Cap) 100 mg PO HS@2100 [facility] Last Admin: 03/14/20 20:37 Dose: 100 mg Documented by: Ceftriaxone Sodium 1 gm/ (Sodium Chloride) 50 mls @ 100 mls/hr IVPB Q24HR [facility] Last Admin: 03/15/20 07:24 Dose: 100 mls/hr Documented by: Dextrose/Sodium Chloride (Dextrose 5%-Ns Iv Soln) 1,000 mls @ 75 mls/hr IV .[id number] [facility] Last Admin: 03/15/20 19:43 Dose: Not Given Documented by: Dextrose/Sodium Chloride (Dextrose 5%-1/2ns Iv Soln) 1,000 mls @ 125 mls/hr IV .Q8H [facility] Last Admin: 03/15/20 19:43 Dose: 125 mls/hr Documented by: Levothyroxine Sodium (Levothyroxine 50 Mcg Tab) 50 mcg PO DAILY@0600 [facility] Last Admin: 03/15/20 05:03 Dose: 50 mcg Documented by: Multivitamins (Multivitamins, Thera 1 Each Tab) 1 each PO DAILY@0900 [facility] Last Admin: 03/15/20 07:24 Dose: 1 each Documented by: Naloxone HCl (Naloxone 0.4 Mg/Ml 1 Ml Vial) 0.2 mg IV Q2M PRN PRN Reason: Opioid Reversal Ondansetron HCl (Ondansetron 4 Mg/2 Ml Vial) 4 mg IVP Q8HR PRN PRN Reason: Nausea And Vomiting Last Admin: 03/13/20 09:05 Dose: 4 mg Documented by: Pantoprazole Sodium (Pantoprazole 40 Mg/10 Ml Vial) 40 mg IV BID [facility] Last Admin: 03/15/20 07:24 Dose: 40 mg Documented by: Prochlorperazine Maleate (Prochlorperazine Suppository 25 Mg Supp) 25 mg RECTAL BID PRN PRN Reason: Nausea And Vomiting Last Admin: 03/13/20 11:42 Dose: 25 mg Documented by: Past medical history to include: Atrial fibrillation, hypothyroid, pacemaker, COPD, arthritis Social history: Lives alone. Uses a walker. Did smoke in the past Family history: Patient cannot tell Physical examination: VITAL SIGNS: 97.5, 116, 20, 117/82, 93% on 6 L GENERAL: Declining in chair, tired EYES: Pupils equal. Conjunctiva normal. HEENT: External appearance of nose and ears normal, oral cavity missing several teeth. Dry mucous membranes NECK: JVD unable to be assessed, masses not palpable. HEART: Irregular heart sounds no edema. LUNGS: Respiratory rate increased; decreased breath sounds. ABDOMEN: Soft, nontender, liver spleen not palpable, no masses palpable. PSYCH: Canals are occasional question NEUROLOGICAL: right-sided weakness with contracture of the right arm INVESTIGATIONS, reviewed in the clinical context: White count 15.9 hemoglobin 8.5 platelets 438 sodium 151 potassium 3.8 creatinine 1.1 Assessment: -Pneumonia suspected gram-negative organism -Acute GI bleed patient presents with coffee-ground emesis. Patient is declining any further endoscopic intervention.. -Abdominal aortic aneurysm 9 cm. Patient has declined treatment. 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 Continue with NG tube to suction. IV fluids. PPI. IV antibiotics.. Prognosis not good. Follow labs closely. Change IV fluids to D5 0.45. Follow labs
[2020-03-15] MEDS: ATORVASTATIN 10 MG TAB PO SCH (21:57)
[2020-03-15] MEDS: GABAPENTIN 100 MG CAP PO SCH (21:59)
[2020-03-15] MEDS: bisacodyL 10 MG SUPP RECTAL SCH (22:12)
[2020-03-16] MEDS: DEXTROSE 5%-0.45% NACL 1,000 ML IV SCH ×3 (03:28→22:03)
[2020-03-16] MEDS: LEVOTHYROXINE 50 MCG TAB PO SCH (05:06)
[2020-03-16 06:42] LABS: Glucose,Whole Blood 162 mg/dL (75-99)
[2020-03-16] MEDS: ALBUTEROL HFA INHALER INHALATION PRN ×2 (07:16→19:26)
[2020-03-16] MEDS: ASPIRIN 81 MG PO SCH (08:19)
[2020-03-16] MEDS: PANTOPRAZOLE 40 MG/10 ML VIAL IV SCH ×2 (08:19→20:12)
[2020-03-16] MEDS: MULTIVITAMINS, THERA 1 EACH TAB PO SCH (08:19)
--- NOTE | 2020-03-16 09:05 | P.PN ---
Subjective Progress Note Date: 03/16/20 Principal diagnosis: Nausea, vomiting and coffee-ground emesis This patient is an 84-year-old white male who came into the emergency room with complaints of nausea vomiting associated with some coffee-ground emesis. He has been recently diagnosed with [place] 19 infection [facility] While he was there he was having some upper abdominal discomfort associated with several episodes of nausea vomiting and reported coffee-ground emesis. He has been started on broad spectrum antibiotics for possible right upper lobe pneumonia. NG tube remains intact with 100 MLs of villous bilious outputthrough the night. Abdominal distention improved, patient states he has abdominal pain. He has had no further episodes of nausea or vomiting. The patient had 2 bowel movements through the night, no blood reported. Objective - Vital Signs Vital signs: Vital Signs Temp 97.7 F 03/16/20 05:40 Pulse 94 03/16/20 05:40 Resp 18 03/16/20 05:40 BP 100/63 03/16/20 05:40 Pulse Ox 92 L 03/16/20 05:40 Intake & Output 03/15/20 03/16/20 03/16/20 18:59 06:59 18:59 Output Total 550 Balance -550 Weight 45.359 kg Output: Gastric Drainage 100 Urine 450 Other: Voiding Method Indwelling Catheter - Exam General appearance: The patient is alert, oriented to self and place, appears in no acute distress. HET: Head is normocephalic and atraumatic. Conjunctiva pink. Sclera anicteric. Neck: Supple without lymphadenopathy. Abdomen: Soft, thin, diffuse abdominal tenderness, nondistended with bowel sounds. No guarding or rigidity. Extremities: Normal skin color and turgor. No pedal edema Neurological: No focal deficits. Alert and oriented 2. - Labs CBC & Chem 7: 03/15/20 06:44 03/16/20 06:19 Labs: Abnormal Lab Results - Last 24 Hours (Table) 03/15/20 03/15/20 03/15/20 Range/Units 06:44 06:44 11:26 WBC 15.94 H (4.50-10.00) X 10*3/uL RBC 3.05 L (4.40-5.60) X 10*6/uL Hgb 8.5 L (13.0-17.0) g/dL Hct 28.5 L (39.6-50.0) % MCHC 29.8 L (32.0-37.0) g/dL RDW 16.0 H (11.5-14.5) % Sodium 151 H (135-145) mmol/L Chloride 118 H (96-109) mmol/L BUN 32.0 H (9.0-27.0) mg/dL BUN/Creatinine Ratio 29.09 H (12.00-20.00) Ratio Glucose 144 H (70-110) mg/dL POC Glucose (mg/dL) 123 H (75-99) mg/dL Calcium 8.0 L (8.7-10.3) mg/dL 03/15/20 03/15/20 03/16/20 Range/Units 16:27 20:18 06:41 WBC (4.50-10.00) X 10*3/uL RBC (4.40-5.60) X 10*6/uL Hgb (13.0-17.0) g/dL Hct (39.6-50.0) % MCHC (32.0-37.0) g/dL RDW (11.5-14.5) % Sodium (135-145) mmol/L Chloride (96-109) mmol/L BUN (9.0-27.0) mg/dL BUN/Creatinine Ratio (12.00-20.00) Ratio Glucose (70-110) mg/dL POC Glucose (mg/dL) 119 H 141 H 162 H (75-99) mg/dL Calcium (8.7-10.3) mg/dL Assessment and Plan (1) Nausea & vomiting Narrative/Plan: This is a male patient who came in with episodes of nausea vomiting and coffee- ground emesis for 2-3 days duration. The patient is having multiple episodes of bilious emesis presently and had only 2 episodes of coffee-ground emesis before coming into the emergency room. His hemoglobin has remained stable. Rule out upper GI pathology including peptic ulcer disease. Patient had increased abdominal distention therefore a NG tube was placed. His abdominal distention and pain has improved. He has had no further episodes of nausea or vomiting. Awaiting recommendations from surgical services for removal of NG tube. Current Visit: Yes Status: Acute Code(s): R11.2 - NAUSEA WITH VOMITING, UNSPECIFIED SNOMED Code(s): 95808738 (2) Coffee ground emesis Narrative/Plan: Patient has had no further episodes of coffee-ground emesis during this admission. Patient is refusing any endoscopies. Current Visit: Yes Status: Acute Code(s): K92.0 - HEMATEMESIS SNOMED Code(s): 40053014 (3) Pneumonia Narrative/Plan: On broad-spectrum antibiotics Current Visit: Yes Status: Acute Code(s): J18.9 - PNEUMONIA, UNSPECIFIED ORGANISM SNOMED Code(s): 704525281 (4) COVID-19 virus infection Current Visit: Yes Status: Acute Code(s): U07.1 - COVID-19 SNOMED Code(s): 303636693 Plan: 1. Continue with Protonix 40 mg twice daily 2. Continue broad-spectrum antibiotics medical management per primary team 3. Discontinue NG tube 4. Advance to clear liquid diet 5. Discussion of recommendation for upper endoscopy was had with patient's son, he states his father will make the decisions and dates his father does not want to proceed with any upper or lower endoscopies 6. Repeat CBC BMP 7. CT of abdomen and pelvis ordered 8. We will continue to follow closely Dr. Priscila Crespo I agree with the dictator's note, documented as a scribe by Dinorah Ahuja.
[2020-03-16 11:21] LABS: Glucose,Whole Blood 155 mg/dL (75-99)
[2020-03-16 12:00] LABS: African American GFR (CKD) 70.6 (60.0-200.0); Anion Gap 10.4 mmol/L (4.00-12.00); BUN/Creat Ratio 27.27 Ratio (12.00-20.00); Calcium 8.1 mg/dL (8.7-10.3); Carbon Dioxide 20.6 mmol/L (21.6-31.8); Non-African American GFR(CKD) 60.9 (60.0-200.0); Potassium 3.7 mmol/L (3.5-5.5)
[2020-03-16] MEDS ORDERED: IOPAMIDOL CONTRAST (ORAL USE) VIAL PO PRN (12:55)
--- NOTE | 2020-03-16 13:05 | P.PN ---
Subjective Progress Note Date: 03/16/20 Principal diagnosis: Dyspnea, cough, hypoxia This is an 84-year-old male who is seen in the emergency room on March 12 for mental status changes, and GI bleed. Apparently, the patient has been having issues with hematemesis. Not a particularly good historian. We are apparently consulted because of possible pneumonia. The patient has a prior history of COVID 19 infection. Currently, he is nauseated. The nurse was going to get him an antiemetic. He is a very cachectic appearing gentleman who is chronically ill, and not a very good historian. He apparently had some blood in his vomitus as well as coffee ground emesis according to the emergency room physician. A c hest x-ray shows a possible right upper lobe pneumonia as well as some infiltrate or atelectasis at the left again he is not a particularly good historian and getting any history as it relates to cough, shortness of breath, chest congestion, phlegm production, fever, and other symptoms which might s uggest pneumonia is very difficult. He apparently was in the hospital a number of weeks ago was discharged with a diagnosis of COVID 19 pneumonia and associated hypoxemic respiratory failure. He apparently again tested positive for COVID 19 infection on this admission. Currently, on 6 L nasal cannula, his saturations are only 90%. Again, he is very chronically ill looking, with profound cachexia. On 03/14/2020 patient seen in follow-up on medical floor, he is resting comfortably in bed, he is currently on 4 L of oxygen pulse ox is 92-95%, no fever or chills, blood pressure stable, 0.9 normal saline infusing at a rate of 75 ML per hour, he is awake and alert, his any worsening dyspnea, his biggest complaint is discomfort from his sacral and buttock area. Patient has a right hip wound with a wound VAC in place. Denies any worsening dyspnea, today's chest x-ray has been reviewed, showing bilateral airspace disease, patient has NG tube has been 250 of gastric output in the last 24 hours with 350 on day shift since this morning, today's hemoglobin is 9.1. Surgery has been consulted for abdominal distention and concerns about NG tube placement which did not appear to be properly placed on the chest x-ray. NG tube has been advanced. Patient is awake and alert, appears to be in no acute distress. Breathing comfortably. Patient is on antibiotics in the form of Rocephin. Urine culture show no growth. On the 03/16/2020 patient seen in follow-up on medical floor, she is sitting up in the chair, appears to be breathing comfortably, in no acute distress, still has NG tube in place and there has been 650 ML of gastric output recorded for the last 24 hours. No signs of any respiratory distress, no cough, no complaints of chest pain. His last chest x-ray was yesterday showing bilateral airspace disease persistence, without significant change. His FiO2 requirement is up to 8 L, his pulse ox is between 91-92%, his had no fever or chills, denies any specific complaints, surgical services are following in regards to ileus, the patient is going to be started on clear liquid diet, CT of abdomen and pelvis is pending, IV fluids are D5 half-normal saline at a rate of 125 ML per hour. Objective - Vital Signs Vital signs: Vital Signs Temp 97.7 F 03/16/20 10:00 Pulse 94 03/16/20 10:00 Resp 18 03/16/20 10:00 BP 94/57 03/16/20 10:00 Pulse Ox 91 L 03/16/20 10:00 Intake & Output 03/15/20 03/16/20 03/16/20 18:59 06:59 18:59 Output Total 550 Balance -550 Weight 45.359 kg Output: Gastric Drainage 100 Urine 450 Other: Voiding Method Indwelling Catheter Indwelling Catheter - Exam GENERAL EXAM: Alert, cachectic, 84-year-old white male, on 8 L of oxygen, comfortable in no apparent distress. HEAD: Normocephalic/atraumatic. EYES: Normal reaction of pupils, equal size. Conjunctiva pink, sclera white. NOSE: Clear with pink turbinates. THROAT: No erythema or exudates. NECK: No masses, no JVD, no thyroid enlargement, no adenopathy. CHEST: No chest wall deformity. Symmetrical expansion. LUNGS: Equal air entry with bilateral crackles CVS: Regular rate and rhythm, normal S1 and S2, no gallops, no murmurs, no rubs ABDOMEN: Soft, nontender. No hepatosplenomegaly, normal bowel sounds, no guarding or rigidity. EXTREMITIES: No clubbing, no edema, no cyanosis, 2+ pulses and upper and lower extremities. MUSCULOSKELETAL: Muscle strength and tone normal. SPINE: No scoliosis or deformity SKIN: No rashes, right hip wound with wound VAC in place CENTRAL NERVOUS SYSTEM: Alert and oriented -3. No focal deficits, tone is normal in all 4 extremities. PSYCHIATRIC: Alert and oriented -3. Appropriate affect. Intact judgment and insight. - Labs CBC & Chem 7: 03/15/20 06:44 03/16/20 06:19 Labs: Abnormal Lab Results - Last 24 Hours (Table) 03/15/20 03/15/20 03/16/20 Range/Units 16:27 20:18 06:19 Sodium 152 H (135-145) mmol/L Chloride 121 H (96-109) mmol/L Carbon Dioxide 20.6 L (21.6-31.8) mmol/L BUN 30.0 H (9.0-27.0) mg/dL BUN/Creatinine Ratio 27.27 H (12.00-20.00) Ratio Glucose 139 H (70-110) mg/dL POC Glucose (mg/dL) 119 H 141 H (75-99) mg/dL Calcium 8.1 L (8.7-10.3) mg/dL 03/16/20 03/16/20 Range/Units 06:41 11:19 Sodium (135-145) mmol/L Chloride (96-109) mmol/L Carbon Dioxide (21.6-31.8) mmol/L BUN (9.0-27.0) mg/dL BUN/Creatinine Ratio (12.00-20.00) Ratio Glucose (70-110) mg/dL POC Glucose (mg/dL) 162 H 155 H (75-99) mg/dL Calcium (8.7-10.3) mg/dL Assessment and Plan Plan: Assessment: #1. Acute hypoxic respiratory failure, multifactorial, related to prior history of COVID 19 pneumonia, rule out possibility of bacterial pneumonia and sepsis, with possible source including urinary tract, pneumonia or wounds #2. Acute upper GI bleeding with coffee ground emesis and hematemesis, NG tube has been inserted #3. Possible ileus #4. Possibility of community acquired pneumonia versus hospital-acquired pneumonia, in the right upper lobe and left lower lobe #5. History of chronic atrial fibrillation #6. Anorexia/cachexia syndrome of chronic venous #7. Rule out dementia #8. Acute dehydration and acute renal failure #9. Hypothyroidism #10. Severe general medical debility #11. Protein calorie malnutrition Plan: Procalcitonin level came back elevated suggesting likelihood of bacterial infection, continue Rocephin for antibiotics, patient has been afebrile, he is quite debilitated, maintain aspiration precautions, provide incentive spirometer, overall prognosis is extremely guarded. We'll continue supportive treatment I performed a history & physical examination of the patient and discussed their management with my nurse practitioner, Ora Zarate. I reviewed the nurse practitioner's note and agree with the documented findings and plan of care. Lung sounds are positive for diminished breath sounds The findings and the impression was discussed with the patient. I attest to the documentation by the nurse practitioner. Time with Patient: Less than 30
--- NOTE | 2020-03-16 13:29 | P.PN ---
Subjective Progress Note Date: 03/16/20 CHIEF COMPLAINT: Abdominal distention HISTORY OF PRESENT ILLNESS: Patient is being followed for ileus which is resolving. He did have a bowel movement after suppository. NG tube only had 100 bilious output through the night. Afebrile. Sodium 152 PHYSICAL EXAM: VITAL SIGNS: Reviewed. GENERAL: Well-developed in no acute distress. HEENT: No sclera icterus. Extraocular movements grossly intact. Moist buccal mucosa. Head is atraumatic, normocephalic. ABDOMEN: Soft. Nondistended. Nontender. NEUROLOGIC: Confused ASSESSMENT: 1. Resolving ileus 2. Covid 19 infection PLAN: -Discontinue NG tube -Start patient on clear liquid diet -Continue supportive care Physician Manager Plant note has been reviewed by physician. Signing provider agrees with the documented findings, assessment, and plan of care. Objective - Vital Signs Vital signs: Vital Signs Temp 97.7 F 03/16/20 10:00 Pulse 94 03/16/20 10:00 Resp 18 03/16/20 10:00 BP 94/57 03/16/20 10:00 Pulse Ox 91 L 03/16/20 10:00 Intake & Output 03/15/20 03/16/20 03/16/20 18:59 06:59 18:59 Output Total 550 Balance -550 Weight 45.359 kg Output: Gastric Drainage 100 Urine 450 Other: Voiding Method Indwelling Catheter Indwelling Catheter - Labs CBC & Chem 7: 03/15/20 06:44 03/16/20 06:19 Labs: Abnormal Lab Results - Last 24 Hours (Table) 03/15/20 03/15/20 03/16/20 Range/Units 16:27 20:18 06:19 Sodium 152 H (135-145) mmol/L Chloride 121 H (96-109) mmol/L Carbon Dioxide 20.6 L (21.6-31.8) mmol/L BUN 30.0 H (9.0-27.0) mg/dL BUN/Creatinine Ratio 27.27 H (12.00-20.00) Ratio Glucose 139 H (70-110) mg/dL POC Glucose (mg/dL) 119 H 141 H (75-99) mg/dL Calcium 8.1 L (8.7-10.3) mg/dL 03/16/20 03/16/20 Range/Units 06:41 11:19 Sodium (135-145) mmol/L Chloride (96-109) mmol/L Carbon Dioxide (21.6-31.8) mmol/L BUN (9.0-27.0) mg/dL BUN/Creatinine Ratio (12.00-20.00) Ratio Glucose (70-110) mg/dL POC Glucose (mg/dL) 162 H 155 H (75-99) mg/dL Calcium (8.7-10.3) mg/dL
[2020-03-16 16:26] LABS: Glucose,Whole Blood 151 mg/dL (75-99)
--- NOTE | 2020-03-16 19:28 | CT ---
EXAMINATION TYPE: CT abdomen pelvis w con DATE OF EXAM: 03/16/2020 COMPARISON: None HISTORY: Abdominal pain, distention CT DLP: 832.2 mGycm Automated exposure control for dose reduction was used. CONTRAST: Performed with IV Contrast, patient injected with 100 mL of Isovue 300. Images obtained from the diaphragm to the floor the pelvis with IV contrast. FINDINGS: There are mild bilateral pleural effusions. There is bilateral lower lobe pulmonary infiltrates and a telectasis. Heart size is normal. There is no pericardial effusion. Abdominal aorta is atheromatous. There is dilated fluid-filled stomach. Spleen is intact. There is extensive atherosclerotic vascular calcification. There is no evidence of pancreatic mass. There is pancreatic atrophy. Liver has normal size and contour. There is 2 cm cyst in the anterior right lobe of the liver. The bile ducts are not dilated. There is no adrenal mass. Kidneys show no hydronephrosis. The ureters are not dilated. There is large staghorn calculus in the right kidney. There is 1 cm calculus in the left kidney. There is no hydron ephrosis. Ureters are not dilated. There is a large lower abdominal aortic aneurysm. Aneurysm measures 12 cm in length and the maximum d iameter is 8 cm. There is extensive thrombus. 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 There is Alvarez catheter in the urinary bladder. There is some free fluid in the cul-de-sac. There are numerous sigmoid diverticula. I see no sign of diverticulitis. Fluid in the pelvis has rela tively low attenuation with density of 13 consistent with nonhemorrhagic fluid. There is no adrenal mass. There are multiple distended gas and fluid-filled loops of small bowel in t he mid abdomen. A transition point is not identified. Bowel measures up to 3.8 cm. The large bowel is not dilated. The terminal ileum is not dilated. There is spondylotic changes in the lumbar spine. There is fusion of the L2 and L3 and L4 vertebral b odies. IMPRESSION: Large abdominal aortic aneurysm without sign of leakage. Mild iliac artery aneurysm. Bilateral pleural effusions and lower lobe pulmonary infiltrates and atelectasis. Heart is not enlarg ed and this is probably not congestive heart failure. Renal calculi with large staghorn calculus in the right kidney. Mild free fluid in the pelvis. Sigmoid diverticulosis without diverticulitis. Dilated small bowel and large stomach suggestive of the mid mechanical small bowel obstruction. Trans ition point not identified.
--- NOTE | 2020-03-16 19:42 | P.PN ---
Progress Note - Text Progress Note Date: 03/16/20 Chief Complaint: Bright red blood per rectum History of presenting complaint: This is a 84-year-old patient who follows with Dr. Gomez. Chronic stable medical conditions include hypothyroid, COPD, hyperlipidemia, chronic right- sided weakness Patient was in the hospital from February 20 through February 22. Had then presented with GI bleed. He was found to have a 9 cm abdominal aorta Cardizem. Vascular surgery was consulted. Patient did not want any further investigations neither for the GI bleed nor for the abdominal aorta aneurysm.. That time his son was consulted. He was okay with the same.. Now admitted with acute kidney injury from dehydration. Also had coffee-ground emesis. Along with nausea vomiting. NG tube was placed. But good output. Bilious. Dr. Priscila coon did speak with patient's son. As the patient does not want any intervention the son agrees with the same. Today-NG tube discontinued by surgery. Started on clear liquids. Sitting up in a chair. More comfortable today. Review of systems: Attempted for constitutional, cardiovascular, GI, pulmonary. relevant finding as above Active Medications Acetaminophen (Acetaminophen Tab 325 Mg Tab) 650 mg PO Q4H PRN PRN Reason: Fever and/ or Pain Last Admin: 03/15/20 21:59 Dose: 650 mg Documented by: Albuterol Sulfate (Albuterol Hfa Inhaler) 2 puff INHALATION RT-Q4H PRN PRN Reason: Shortness Of Breath Last Admin: 03/16/20 19:26 Dose: 2 puff Documented by: Aspirin (Aspirin 81 Mg) 81 mg PO DAILY@0900 [facility] Last Admin: 03/16/20 08:19 Dose: 81 mg Documented by: Atorvastatin Calcium (Atorvastatin 10 Mg Tab) 10 mg PO HS@2100 [facility] Last Admin: 03/15/20 21:57 Dose: 10 mg Documented by: Bisacodyl (Bisacodyl 10 Mg Supp) 10 mg RECTAL HS [facility] Last Admin: 03/15/20 22:12 Dose: 10 mg Documented by: Gabapentin (Gabapentin 100 Mg Cap) 100 mg PO HS@2100 [facility] Last Admin: 03/15/20 21:59 Dose: 100 mg Documented by: Ceftriaxone Sodium 1 gm/ (Sodium Chloride) 50 mls @ 100 mls/hr IVPB Q24HR [facility] Last Admin: 03/16/20 08:19 Dose: 100 mls/hr Documented by: Dextrose/Sodium Chloride (Dextrose 5%-Ns Iv Soln) 1,000 mls @ 75 mls/hr IV .[id number] [facility] Last Admin: 03/15/20 19:43 Dose: Not Given Documented by: Dextrose/Sodium Chloride (Dextrose 5%-1/2ns Iv Soln) 1,000 mls @ 125 mls/hr IV .Q8H [facility] Last Admin: 03/16/20 15:51 Dose: 125 mls/hr Documented by: Iopamidol (Iopamidol Contrast (Oral Use) Vial) 30 ml PO Q60M PRN PRN Reason: CT Scan Stop: 03/17/20 12:56 Last Admin: 03/16/20 15:51 Dose: 30 ml Documented by: Levothyroxine Sodium (Levothyroxine 50 Mcg Tab) 50 mcg PO DAILY@0600 [facility] Last Admin: 03/16/20 05:06 Dose: 50 mcg Documented by: Multivitamins (Multivitamins, Thera 1 Each Tab) 1 each PO DAILY@0900 [facility] Last Admin: 03/16/20 08:19 Dose: 1 each Documented by: Naloxone HCl (Naloxone 0.4 Mg/Ml 1 Ml Vial) 0.2 mg IV Q2M PRN PRN Reason: Opioid Reversal Ondansetron HCl (Ondansetron 4 Mg/2 Ml Vial) 4 mg IVP Q8HR PRN PRN Reason: Nausea And Vomiting Last Admin: 03/13/20 09:05 Dose: 4 mg Documented by: Pantoprazole Sodium (Pantoprazole 40 Mg/10 Ml Vial) 40 mg IV BID [facility] Last Admin: 03/16/20 08:19 Dose: 40 mg Documented by: Prochlorperazine Maleate (Prochlorperazine Suppository 25 Mg Supp) 25 mg RECTAL BID PRN PRN Reason: Nausea And Vomiting Last Admin: 03/13/20 11:42 Dose: 25 mg Documented by: Past medical history to include: Atrial fibrillation, hypothyroid, pacemaker, COPD, arthritis Social history: Lives alone. Uses a walker. Did smoke in the past Family history: Patient cannot tell Physical examination: VITAL SIGNS: 97.1, 91, 20, 100/69, 91% on 8 L GENERAL: Reclining in chair, awake tired EYES: Pupils equal. Conjunctiva normal. HEENT: External appearance of nose and ears normal, oral cavity missing several teeth. Dry mucous membranes NECK: JVD unable to be assessed, masses not palpable. HEART: Irregular heart sounds no edema. LUNGS: Respiratory rate increased; decreased breath sounds. ABDOMEN: Soft, nontender, liver spleen not palpable, no masses palpable. PSYCH: Canals are occasional question NEUROLOGICAL: right-sided weakness with contracture of the right arm INVESTIGATIONS, reviewed in the clinical context: March 16: Sodium 152 potassium 3.7 creatinine 1.1 White count 15.9 hemoglobin 8.5 platelets 438 sodium 151 potassium 3.8 creatinine 1.1 Assessment: -Pneumonia suspected gram-negative organism -Acute GI bleed patient presents with coffee-ground emesis. Patient is declining any further endoscopic intervention.. -Abdominal aortic aneurysm 9 cm. Patient has declined treatment. 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 Started on clear liquids. Continue with IV fluids. Follow labs. Prognosis guarded
[2020-03-16] MEDS: GABAPENTIN 100 MG CAP PO SCH (20:12)
[2020-03-16] MEDS: ATORVASTATIN 10 MG TAB PO SCH (20:12)
[2020-03-16] MEDS: bisacodyL 10 MG SUPP RECTAL SCH (20:12)
[2020-03-16 20:37] LABS: Glucose,Whole Blood 129 mg/dL (75-99)
[2020-03-17] MEDS: DEXTROSE 5%-0.45% NACL 1,000 ML IV SCH ×3 (04:24→15:51)
[2020-03-17] MEDS: LEVOTHYROXINE 50 MCG TAB PO SCH (05:12)
[2020-03-17 06:46] LABS: African American GFR (CKD) 90 (>60 ml/min/1.73 sqM); Anion Gap 13 mmol/L; Blood Urea Nitrogen 27 mg/dL (9-20); Calcium 8.4 mg/dL (8.4-10.2); Carbon Dioxide 17 mmol/L (22-30); Chloride 118 mmol/L (98-107); Glucose 115 mg/dL (74-99); Non-African American GFR(CKD) 78 (>60 ml/min/1.73 sqM); Sodium 148 mmol/L (137-145)
[2020-03-17 06:48] LABS: Potassium 4.9 mmol/L (3.5-5.1)
[2020-03-17 07:03] LABS: Glucose,Whole Blood 149 mg/dL (75-99)
[2020-03-17] MEDS: ALBUTEROL HFA INHALER INHALATION PRN (07:38)
[2020-03-17] MEDS: ASPIRIN 81 MG PO SCH (07:58)
[2020-03-17] MEDS: MULTIVITAMINS, THERA 1 EACH TAB PO SCH (07:59)
[2020-03-17] MEDS: PANTOPRAZOLE 40 MG/10 ML VIAL IV SCH (07:59)
--- NOTE | 2020-03-17 11:17 | P.PN ---
Subjective Progress Note Date: 03/17/20 CHIEF COMPLAINT: Abdominal distention HISTORY OF PRESENT ILLNESS: Patient is being followed for ileus. Patient did have a bowel movement. He had 150 brownish colored output through the NG tube through the night. He is afebrile. He is requiring 12 L of high flow oxygen. Patient's overall condition has continued to decline. And patient's family has decided to proceed with hospice care Computed tomography scan of the abdomen and pelvis did show dilated small bowel and large stomach suggestive of mid mechanical small bowel obstruction. Transition point not identified. Large abdominal aortic aneurysm without sign of leakage. Bilateral pleural effusions and lower lobe pulmonary infiltrates an d atelectasis. Heart is not enlarged and this is probably noxious of heart failure. Renal calculi with large staghorn calculus in the right kidney. Mild free fluid in the pelvis. Sigmoid diverticulosis without diverticulitis. PHYSICAL EXAM: VITAL SIGNS: Reviewed. GENERAL: Cachectic HEENT: No sclera icterus. Extraocular movements grossly intact. Moist buccal mucosa. Head is atraumatic, normocephalic. ABDOMEN: Soft. Nondistended. NEUROLOGIC: Confused ASSESSMENT: 1. ileus versus small bowel obstruction 2. Covid 19 infection PLAN: -Continue supportive care -Agree with hospice care Physician Agriculture Consultant note has been reviewed by physician. Signing provider agrees with the documented findings, assessment, and plan of care. Objective - Vital Signs Vital signs: Vital Signs Temp 97.6 F 03/17/20 05:10 Pulse 75 03/17/20 08:00 Resp 15 03/17/20 08:00 BP 109/74 03/17/20 05:10 Pulse Ox 88 L 03/17/20 05:10 Intake & Output 03/16/20 03/17/20 03/17/20 18:59 06:59 18:59 Output Total 400 Balance -400 Output: Gastric Drainage 150 Urine 250 Other: Voiding Method Indwelling Catheter Indwelling Catheter Indwelling Catheter - Labs CBC & Chem 7: 03/15/20 06:44 03/17/20 05:41 Labs: Abnormal Lab Results - Last 24 Hours (Table) 03/16/20 03/16/20 03/16/20 Range/Units 06:19 11:19 16:24 Sodium 152 H (135-145) mmol/L Chloride 121 H (96-109) mmol/L Carbon Dioxide 20.6 L (21.6-31.8) mmol/L BUN 30.0 H (9.0-27.0) mg/dL BUN/Creatinine Ratio 27.27 H (12.00-20.00) Ratio Glucose 139 H (70-110) mg/dL POC Glucose (mg/dL) 155 H 151 H (75-99) mg/dL Calcium 8.1 L (8.7-10.3) mg/dL 03/16/20 03/17/20 03/17/20 Range/Units 20:35 05:41 07:01 Sodium 148 H (135-145) mmol/L Chloride 118 H (96-109) mmol/L Carbon Dioxide 17 L (21.6-31.8) mmol/L BUN 27 H (9.0-27.0) mg/dL BUN/Creatinine Ratio (12.00-20.00) Ratio Glucose 115 H (70-110) mg/dL POC Glucose (mg/dL) 129 H 149 H (75-99) mg/dL Calcium (8.7-10.3) mg/dL
[2020-03-17] MEDS ORDERED: MORPHINE SULFATE 2 MG/ML SYRINGE IVP PRN (11:35)
[2020-03-17] MEDS ORDERED: IOPAMIDOL CONTRAST (ORAL USE) VIAL PO PRN (11:42)
[2020-03-17] MEDS: MORPHINE CONC SOLN 10mg/0.5mL ORAL SYRG PO PRN ×3 (12:00→16:44)
--- NOTE | 2020-03-17 12:14 | P.PN ---
Subjective Progress Note Date: 03/17/20 Principal diagnosis: Nausea, vomiting and coffee-ground emesis This patient is an 84-year-old white male who came into the emergency room with complaints of nausea vomiting associated with some coffee-ground emesis. He has been recently diagnosed with Coban 19 infection was transferred to the group home for rehabilitation. While he was there he was having some upper abdominal discomfort associated with several episodes of nausea vomiting and reported coffee-ground emesis. He has been started on broad spectrum antibiotics for possible right upper lobe pneumonia. NG tube remains intact with 150 MLs of bilious output through the night. Abdominal distention improved, patient states he has abdominal pain. He has had no further episodes of nausea or vomiting. The patient had another bowel movement through the evening, noted as brown with no signs of GI bleed. CT of abdomen shows bilateral pleural effusion and lower lobe infiltrates. Abdominal aortic aneurysm. Sigmoid diverticulosis. Dilated small bowel with arch stomach, likely mechanical small bowel obs truction. Family is deciding on making patient comfort care or hospice. Objective - Vital Signs Vital signs: Vital Signs Temp 97.6 F 03/17/20 05:10 Pulse 75 03/17/20 08:00 Resp 15 03/17/20 08:00 BP 109/74 03/17/20 05:10 Pulse Ox 88 L 03/17/20 05:10 Intake & Output 03/16/20 03/17/20 03/17/20 18:59 06:59 18:59 Output Total 400 Balance -400 Weight 45.359 kg Output: Gastric Drainage 150 Urine 250 Other: Voiding Method Indwelling Catheter Indwelling Catheter Indwelling Catheter - Exam General appearance: The patient obtunded, ill appearing, oriented to self and place, appears in no acute distress. HET: Head is normocephalic and atraumatic. Conjunctiva pink. Sclera anicteric. Neck: Supple without lymphadenopathy. Abdomen: Soft, thin, diffuse abdominal tenderness, nondistended with bowel sounds. No guarding or rigidity. Extremities: Normal skin color and turgor. No pedal edema Neurological: No focal deficits. Alert. - Labs CBC & Chem 7: 03/15/20 06:44 03/17/20 05:41 Labs: Abnormal Lab Results - Last 24 Hours (Table) 03/16/20 03/16/20 03/17/20 Range/Units 16:24 20:35 05:41 Sodium 148 H (137-145) mmol/L Chloride 118 H (98-107) mmol/L Carbon Dioxide 17 L (22-30) mmol/L BUN 27 H (9-20) mg/dL Glucose 115 H (74-99) mg/dL POC Glucose (mg/dL) 151 H 129 H (75-99) mg/dL 02/06/30 Range/Units 07:01 Sodium (137-145) mmol/L Chloride (98-107) mmol/L Carbon Dioxide (22-30) mmol/L BUN (9-20) mg/dL Glucose (74-99) mg/dL POC Glucose (mg/dL) 149 H (75-99) mg/dL Assessment and Plan (1) Nausea & vomiting Narrative/Plan: This is a male patient who came in with episodes of nausea vomiting and coffee- ground emesis for 2-3 days duration. The patient is having multiple episodes of bilious emesis presently and had only 2 episodes of coffee-ground emesis before coming into the emergency room. His hemoglobin has remained stable. Rule out upper GI pathology including peptic ulcer disease. Patient had increased abdominal distention therefore a NG tube was placed. His abdominal distention and pain has improved. He has had no further episodes of nausea or vomiting. PA CT of the abdomen shows dilation of small bowel loops and large abdomen, consistent with mechanical small bowel obstruction Current Visit: Yes Status: Acute Code(s): R11.2 - NAUSEA WITH VOMITING, UNSPECIFIED SNOMED Code(s): 26017825 (2) Coffee ground emesis Narrative/Plan: Patient has had no further episodes of coffee-ground emesis during this admi ssion. Patient is refusing any endoscopies. Current Visit: Yes Status: Acute Code(s): K92.0 - HEMATEMESIS SNOMED Code(s): 58470151 (3) Pneumonia Narrative/Plan: On broad-spectrum antibiotics Current Visit: Yes Status: Acute Code(s): J18.9 - PNEUMONIA, UNSPECIFIED ORGANISM SNOMED Code(s): 343098436 (4) COVID-19 virus infection Current Visit: Yes Status: Acute Code(s): U07.1 - COVID-19 SNOMED Code(s): 137715554 Plan: 1. Continue with Protonix 40 mg twice daily 2. Continue broad-spectrum antibiotics medical management per primary team 3. NG tube per recommendations from surgical services 4. CT of abdomen ordered and reviewed 5. Patient likely being made comfort care with possible hospice Dr. Priscila Crespo I agree with the dictator's note, documented as a scribe by Dinorah Ahuja.
[2020-03-17] MEDS: SCOPOLAMINE 1.5MG/72HR PATCH TRANSDERM SCH (13:00)
--- NOTE | 2020-03-17 13:21 | P.PN ---
Subjective Progress Note Date: 03/17/20 Principal diagnosis: Dyspnea, cough, hypoxia This is an 84-year-old male who is seen in the emergency room on March 12 for mental status changes, and GI bleed. Apparently, the patient has been having issues with hematemesis. Not a particularly good historian. We are apparently consulted because of possible pneumonia. The patient has a prior history of COVID 19 infection. Currently, he is nauseated. The nurse was going to get him an antiemetic. He is a very cachectic appearing gentleman who is chronically ill, and not a very good historian. He apparently had some blood in his vomitus as well as coffee ground emesis according to the emergency room physician. A c hest x-ray shows a possible right upper lobe pneumonia as well as some infiltrate or atelectasis at the left again he is not a particularly good historian and getting any history as it relates to cough, shortness of breath, chest congestion, phlegm production, fever, and other symptoms which might s uggest pneumonia is very difficult. He apparently was in the hospital a number of weeks ago was discharged with a diagnosis of COVID 19 pneumonia and associated hypoxemic respiratory failure. He apparently again tested positive for COVID 19 infection on this admission. Currently, on 6 L nasal cannula, his saturations are only 90%. Again, he is very chronically ill looking, with profound cachexia. On 03/14/2020 patient seen in follow-up on medical floor, he is resting comfortably in bed, he is currently on 4 L of oxygen pulse ox is 92-95%, no fever or chills, blood pressure stable, 0.9 normal saline infusing at a rate of 75 ML per hour, he is awake and alert, his any worsening dyspnea, his biggest complaint is discomfort from his sacral and buttock area. Patient has a right hip wound with a wound VAC in place. Denies any worsening dyspnea, today's chest x-ray has been reviewed, showing bilateral airspace disease, patient has NG tube has been 250 of gastric output in the last 24 hours with 350 on day shift since this morning, today's hemoglobin is 9.1. Surgery has been consulted for abdominal distention and concerns about NG tube placement which did not appear to be properly placed on the chest x-ray. NG tube has been advanced. Patient is awake and alert, appears to be in no acute distress. Breathing comfortably. Patient is on antibiotics in the form of Rocephin. Urine culture show no growth. On the 03/16/2020 patient seen in follow-up on medical floor, she is sitting up in the chair, appears to be breathing comfortably, in no acute distress, still has NG tube in place and there has been 650 ML of gastric output recorded for the last 24 hours. No signs of any respiratory distress, no cough, no complaints of chest pain. His last chest x-ray was yesterday showing bilateral airspace disease persistence, without significant change. His FiO2 requirement is up to 8 L, his pulse ox is between 91-92%, his had no fever or chills, denies any specific complaints, surgical services are following in regards to ileus, the patient is going to be started on clear liquid diet, CT of abdomen and pelvis is pending, IV fluids are D5 half-normal saline at a rate of 125 ML per hour. On 03/17/2020 patient seen in follow-up on medical surgical floor, Resting in bed, his FiO2 is up to 12 L, patient is barely responsive, NG tube remains in place, still with significant gastric output, patient has been nothing by mouth in view of ileus, GI service is following, CT of abdomen and pelvis showed large abdominal aneurysm without any sign of leakage, mild iliac artery aneurysm, right lateral pleural effusions and lower lobe pulmonary infiltrates and atelectasis mild free fluid within the pelvis, sigmoid diverticulosis without diverticulitis dilated small bowel and large stomach suggestive of the mild mechanical small bowel obstruction. Labs have been reviewed, showing serum sodium of 148, potassium is 4.9, chloride is 118, BUN of 27 creatinine 0.90 she continues on D5 half-normal saline at a rate of 125 ML per hour. Objective - Vital Signs Vital signs: Vital Signs Temp 97.6 F 03/17/20 05:10 Pulse 75 03/17/20 08:00 Resp 15 03/17/20 08:00 BP 109/74 03/17/20 05:10 Pulse Ox 88 L 03/17/20 05:10 Intake & Output 03/16/20 03/17/20 03/17/20 18:59 06:59 18:59 Output Total 400 Balance -400 Weight 45.359 kg Output: Gastric Drainage 150 Urine 250 Other: Voiding Method Indwelling Catheter Indwelling Catheter Indwelling Catheter - Exam GENERAL EXAM: Alert, cachectic, 84-year-old white male, on 12 L of oxygen, comfortable in no apparent distress. HEAD: Normocephalic/atraumatic. EYES: Normal reaction of pupils, equal size. Conjunctiva pink, sclera white. NOSE: Clear with pink turbinates. THROAT: No erythema or exudates. NECK: No masses, no JVD, no thyroid enlargement, no adenopathy. CHEST: No chest wall deformity. Symmetrical expansion. LUNGS: Equal air entry with bilateral crackles CVS: Regular rate and rhythm, normal S1 and S2, no gallops, no murmurs, no rubs ABDOMEN: Soft, nontender. No hepatosplenomegaly, normal bowel sounds, no guarding or rigidity. EXTREMITIES: No clubbing, no edema, no cyanosis, 2+ pulses and upper and lower extremities. MUSCULOSKELETAL: Muscle strength and tone normal. SPINE: No scoliosis or deformity SKIN: No rashes, right hip wound with wound VAC in place CENTRAL NERVOUS SYSTEM: Alert and oriented -3. No focal deficits, tone is normal in all 4 extremities. PSYCHIATRIC: Alert and oriented -3. Appropriate affect. Intact judgment and insight. - Labs CBC & Chem 7: 03/15/20 06:44 03/17/20 05:41 Labs: Abnormal Lab Results - Last 24 Hours (Table) 03/16/20 03/16/20 03/17/20 Range/Units 16:24 20:35 05:41 Sodium 148 H (137-145) mmol/L Chloride 118 H (98-107) mmol/L Carbon Dioxide 17 L (22-30) mmol/L BUN 27 H (9-20) mg/dL Glucose 115 H (74-99) mg/dL POC Glucose (mg/dL) 151 H 129 H (75-99) mg/dL 03/17/20 Range/Units 07:01 Sodium (137-145) mmol/L Chloride (98-107) mmol/L Carbon Dioxide (22-30) mmol/L BUN (9-20) mg/dL Glucose (74-99) mg/dL POC Glucose (mg/dL) 149 H (75-99) mg/dL Assessment and Plan Plan: Assessment: #1. Acute hypoxic respiratory failure, multifactorial, related to prior history of COVID 19 pneumonia, rule out possibility of bacterial pneumonia and sepsis, with possible source including urinary tract, pneumonia or wounds #2. Acute upper GI bleeding with coffee ground emesis and hematemesis, NG tube has been inserted #3. Possible ileus #4. Possibility of community acquired pneumonia versus hospital-acquired pneumonia, in the right upper lobe and left lower lobe #5. History of chronic atrial fibrillation #6. Anorexia/cachexia syndrome of chronic venous #7. Rule out dementia #8. Acute dehydration and acute renal failure #9. Hypothyroidism #10. Severe general medical debility #11. Protein calorie malnutrition Plan: Continue supportive medical treatment, patient is clinically deteriorating, with increasing Fio2 requirement, deteriorating level of consciousness, and dehydration and eletrolyte abnormalities. Prognosis is poor, will continue supportively treating the patient. Recommend palliative care/hospice consultation. I performed a history & physical examination of the patient and discussed their management with my nurse practitioner, Ora Zarate. I reviewed the nurse practitioner's note and agree with the documented findings and plan of care. Lung sounds are positive for diminished breath sounds The findings and the impression was discussed with the patient. I attest to the documentation by the nurse practitioner. Time with Patient: Less than 30
[2020-03-18] MEDS: MORPHINE CONC SOLN 10mg/0.5mL ORAL SYRG PO PRN (00:17)
[2020-03-18] MEDS: DEXTROSE 5%-0.45% NACL 1,000 ML IV SCH ×2 (02:20→09:06)
[2020-03-18] MEDS: DEXTROSE 5%-0.9% NACL 1,000 ML IV SCH (06:36)
--- NOTE | 2020-03-18 22:39 | P.DS ---
Providers Date of admission: 03/12/20 01:50 Expected date of discharge: 03/17/20 Attending physician: Prasanth Peterson Consults: 03/12/20 14:57 Consult Physician Routine Consulting Provider: Scott Connors Consult Reason/Comments: GI Bleed Do you want consulting provider notified?: Yes 03/13/20 11:15 Consult Physician Routine Consulting Provider: Mayank Zuñiga Consult Reason/Comments: COVID & hypoxia Do you want consulting provider notified?: Yes 03/14/20 10:06 Consult Physician Urgent Consulting Provider: Darrius Beatty Consult Reason/Comments: abdominal distention, evaluat for NG tube placement Do you want consulting provider notified?: Yes Primary care physician: Danny Gomez [facility] Course: Chief Complaint: Bright red blood per rectum History of presenting complaint: This is a 84-year-old patient who follows with Dr. Gomez. Chronic stable medical conditions include hypothyroid, COPD, hyperlipidemia, chronic right- sided weakness Patient was in the hospital from February 20 through February 22. Had then presented with GI bleed. He was found to have a 9 cm abdominal aorta Cardizem. Vascular surgery was consulted. Patient did not want any further investigations neither for the GI bleed nor for the abdominal aorta aneurysm.. That time his son was consulted. He was okay with the same.. Now admitted with acute kidney injury from dehydration. Also had coffee-ground emesis. Along with nausea vomiting. NG tube was placed. But good output. Bilious. Dr. Priscila coon did speak with patient's son. As the patient does not want any intervention the son agrees with the same. NG tube was discontinued. Started on clear liquids. Patient started getting distended again. Repeat computed tomography scan showed increasing obstruction. Today-patient doing poorly. Rather lethargic. Short of breath. Abdomen distended. Review of systems: Patient unable to give history Current medications reviewed in today's electronic records Past medical history to include: Atrial fibrillation, hypothyroid, pacemaker, COPD, arthritis Social history: Lives alone. Uses a walker. Did smoke in the past Family history: Patient cannot tell Physical examination: VITAL SIGNS: 97.6, 75, 15, 109/74, 88% on 12 L GENERAL: Laying in bed, short of breath very lethargic EYES: Pupils equal. Conjunctiva normal. HEENT: External appearance of nose and ears normal, oral cavity missing several teeth. Dry mucous membranes NECK: JVD unable to be assessed, masses not palpable. HEART: Irregular heart sounds no edema. LUNGS: Respiratory rate increased; decreased breath sounds. Crackles ABDOMEN: Soft, nontender, liver spleen not palpable, no masses palpable. PSYCH: Unable to assess NEUROLOGICAL: right-sided weakness with contracture of the right arm INVESTIGATIONS, reviewed in the clinical context: March 17: Potassium 4.9 creatinine 0.90 March 16: Sodium 152 potassium 3.7 creatinine 1.1 Computed tomography scan of the abdomen-large abdominal aortic aneurysm without signs of leakage. Bilateral pleural effusion. Infiltrate. 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 Dilated small and large stomach. Suggestive of mechanical small bowel obstruction. White count 15.9 hemoglobin 8.5 platelets 438 sodium 151 potassium 3.8 creatinine 1.1 Assessment: -Acute small bowel obstruction -Pneumonia suspected gram-negative organism, for the distal aspiration pneumonia -Acute GI bleed patient presents with coffee-ground emesis. Patient is declining any further endoscopic intervention.. -Abdominal aortic aneurysm 9 cm. Patient has declined treatment. 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 Prognosis poor. Oral of oral medications for now. Patient not able to tolerate. Advanced care planning: Spoke to patient's son over the phone. Did explain to the son at length patient's overall very poor condition. He understands. 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 I told him the options are extremely limited and none will be beneficial given the very least poor state condition of the patient. He agrees to proceed with comfort measures. And hospice. Artificial feeding or will be held. Acute the patient comfortable. About 20 minutes was spent in this discussion.. Patient Condition at Discharge: Poor Plan - Discharge Summary Discharge Rx Participant: No New Discharge Prescriptions: No Action Acetaminophen Tab [Tylenol] 650 mg PO Q4H PRN PRN Reason: Fever And/ Or Pain [place]-3 Fatty Acids/Fish Oil [Fish Oil 1,000 mg Softgel] 1 cap PO BID@0900,2100 Multivitamins, Thera [Multivitamin (formulary)] 1 tab PO DAILY@0900 Levothyroxine Sodium [Synthroid] 50 mcg PO DAILY@0600 Aspirin 81 mg PO DAILY@0900 Cholecalciferol [Vitamin D3 (25 Mcg = 1000 Iu)] 1,000 unit PO HS@2100 Atorvastatin Calcium [Lipitor] 10 mg PO HS@2100 Ipratropium-Albuterol Nebulize [Duoneb 0.5 mg-3 mg/3 ml Soln] 3 ml INHALATION RT-Q4H PRN PRN Reason: Shortness Of Breath Ipratropium Sneads [Atrovent Hfa] 2 puff INHALATION RT-QID Acetaminophen-Codeine 300-30mg [Tylenol w/codeine #3] 1 tab PO Q8H PRN PRN Reason: Pain Lactose-Reduced Food [Ensure Plus] 1 can PO BID@0900,1300,2100 Ranitidine HCl 150 mg PO DAILY@0600 Gabapentin [Neurontin] 100 mg PO HS@2100 Discharge Medication List Acetaminophen Tab [Tylenol] 650 mg PO Q4H PRN 02/21/20 [History] Aspirin 81 mg PO DAILY@0900 02/21/20 [History] Atorvastatin Calcium [Lipitor] 10 mg PO HS@209902/21/20 [History] Cholecalciferol [Vitamin D3 (25 Mcg = 1000 Iu)] 1,000 unit PO HS@2100 02/21/20 [History] Ipratropium Sneads [Atrovent Hfa] 2 puff INHALATION RT-QID 02/21/20 [History] Ipratropium-Albuterol Nebulize [Duoneb 0.5 mg-3 mg/3 ml Soln] 3 ml INHALATION RT-Q4H PRN 02/21/20 [History] Levothyroxine Sodium [Synthroid] 50 mcg PO DAILY@0600 02/21/20 [History] Multivitamins, Thera [Multivitamin (formulary)] 1 tab PO DAILY@0900 02/21/20 [History] [place]-3 Fatty Acids/Fish Oil [Fish Oil 1,000 mg Softgel] 1 cap PO BID@0900,2100 02/21/20 [History] Acetaminophen-Codeine 300-30mg [Tylenol w/codeine #3] 1 tab PO Q8H PRN 03/12/20 [History] Gabapentin [Neurontin] 100 mg PO HS@209903/12/20 [History] Lactose-Reduced Food [Ensure Plus] 1 can PO BID@0900,1300,209903/12/20 [History] Ranitidine HCl 150 mg PO DAILY@0600 03/12/20 [History] Follow up Appointment(s)/Referral(s): Danny Gomez MD [Primary Care Provider] - 1-2 days [facility], [NON-STAFF] - As Needed
[2020-03-19] MEDS ORDERED: IOPAMIDOL CONTRAST (ORAL USE) VIAL PO PRN (08:00)
[2020-03-19 18:50] VITALS: BP 59/43; PULSE 82; TEMP 94.8
[2020-03-20 01:26] VITALS: RESP 10
[2020-03-20] MEDS: SCOPOLAMINE 1.5MG/72HR PATCH TRANSDERM SCH (13:04)
--- NOTE | 2020-03-20 13:30 | CDI ---
Documentation Clarification Form Date: 03/20/2020 12:47:50 PM From: Shannon Shipman RN CCDS Admit Date: 03/12/2020 01:50:00 AM Patient Name: Gumaro Romo Visit Number: [id number] Discharge Date: ATTENTION: The Clinical Documentation Specialists (CDI) and [facility] Coding Staff appreciate your assistance in clarifying documentation. Please respond to the clarification below the line at the bottom and electronically sign. The CDI & [facility] Coding staff will review the response and follow-up if needed. Please note: Queries are made part of the Legal Health Record. If you have any questions, please contact the author of this message via ITS. Dr. Prasanth Peterson The patient presents with GI bleed and nausea. History/Risk Factors: 84-year-old male presents to ED via EMS with blood streaked emesis and coffee ground emesis. Medical history: Dementia, COPD, Abdominal Aorta aneurysm and Hospitalized 02/20 02/22 for GI Bleed. Clinical Indicators: 03/14; 03/16 & 03/17 Pulmonology Notes: Rule out possibility of bacterial pneumonia and sepsis, with possible source including urinary tract, pneumonia or wounds. 03/18 DC Summary: Acute small bowel obstruction; Pneumonia suspected gram negative, for the distal aspiration pneumonia. 03/12 WBC: 19.4; Neutrophils 17.3 03/12 Lactic acid: 1.7 03/12 Coronavirus Detected 03/12 Vital signs on admission: B/P 112/88; HR 114; Temp 97.7 F Oral; RR 18; SpO2 95% 3L nasal cannula 03/12 CXR: Bilateral airspace disease is present. Interstitium is mildly increased. Treatment: 03/18 Patient made comfort care Hospice consulted. Antibiotics: 03/12 Rocephin Ivpb Q24HR d/c 03/18. IV Bolus: 03/12 0.9NS IV 1L Bolus followed by 75cc/hr In your professional opinion, please clarify if these findings signify one of the following conditions, whether the condition is POA, and cause, if known: Sepsis ruled out Sepsis Other, please specify Unable to determine Present on admission yes or no SIRS Criteria (2 or more of the following may indicate SIRS): -Temperature < 96.8F (36C) or > 101.0F (38.3C) -Heart Rate > 90 bpm -Respiratory Rate > 20 breaths/min or PaCO2 < 32 mmHg -White Blood Cell Count > 12,000 or < 4,000 cells/mm3 or > 10% bands -Lactate >2.0 mmol/L (>4.0 is equivalent to septic shock) (Last Revision: May 2017) Possible sepsis, POA MTDD
--- NOTE | 2020-03-20 13:52 | CDI ---
Documentation Clarification Form Date: 03/20/2020 01:31:19 PM From: Shannon Shipman RN CCDS Admit Date: 03/12/2020 01:50:00 AM Patient Name: Gumaro Romo Visit Number: [id number] Discharge Date: ATTENTION: The Clinical Documentation Specialists (CDI) and [facility] Coding Staff appreciate your assistance in clarifying documentation. Please respond to the clarification below the line at the bottom and electronically sign. The CDI & [facility] Coding staff will review the response and follow-up if needed. Please note: Queries are made part of the Legal Health Record. If you have any questions, please contact the author of this message via ITS. Dr. Prasanth Peterson The COVID-19 test obtained on 03/12 was reported as Positive on 03/12. Patient history/risk factors: 84-year-old male presented to the ED with possible GI bleed, vomiting blood; dyspnea; cough and weakness. Clinical Indicators: Medical History: COPD; Former smoker; admitted 02/20 02/22 for GI bleed. 03/12 CXR: Bilateral airspace disease is present. Interstitium is mildly increased. 03/12 Vital signs ED Triage: B/P 112/88; HR 114; Temp 97.7 F Oral; RR 18; SpO2 95% 3L WBC 03/13 Lung Assessment Pulmonary: Lungs reveal coarse bilateral inspiratory and expiratory rhonchi. Scattered crackles. Breath sounds equal bilaterally but diminished throughout. Treatment: 03/13 Pulmonary consult: Acute hypoxemic respiratory failure, secondary to prior history of COVID 19 pneumonia. He did test positive again for COVID 19 infection. 03/18 Patient made comfort care Hospice consulted. Antibiotics: 03/12 Rocephin Ivpb Q24HR d/c 03/18. IV Bolus: 03/12 0.9NS IV 1L Bolus followed by 75cc/hr Other: Ventolin PRN; Duoneb PRN In order to capture the severity of condition, please clarify the COVID-19 status: COVID -19 Active Infection History of COVID-19 prior to admission. Other, please specify (Last Form Revision: April 2019) History of COVID-19, prior admission. Asymptomatic this admission.. Not active on this admission. MTDD
--- NOTE | 2020-03-20 15:09 | CDI ---
Documentation Clarification Form Date: 03/20/2020 01:55:00 PM From: Shannon Shipman RN CCDS Admit Date: 03/12/2020 01:50:00 AM Patient Name: Gumaro Romo Visit Number: [id number] Discharge Date: ATTENTION: The Clinical Documentation Specialists (CDI) and [facility] Coding Staff appreciate your assistance in clarifying documentation. Please respond to the clarification below the line at the bottom and electronically sign. The CDI & [facility] Coding staff will review the response and follow-up if needed. Please note: Queries are made part of the Legal Health Record. If you have any questions, please contact the author of this message via ITS. Dr. Prasanth Rothman stage two pressure ulcer on the coccyx is documented in Nursing Integumentary assessment 03/13 through 03/20. History/Risk Factors: 84-year old male presents to the ED via EMS from [facility] for coffee ground emesis and weakness. Per the ED note 03/12. Medical history: Atrial Fibrillation, COPD and Arthritis. Found in Internal medicine progress note 03/15 Clinical Indicators: BMI 14.3 Location: Coccyx Wound description: Temperature -Warm, Moisture -Moist, Skin Color Erythema. Skin layer peeling. Treatment: 03/12Turn 2 QHR; / Optifoam gentle liquitrap bordered sacrum 9x9 routine Elements for accurate and compliant documentation of an ulcer: *The location/laterality of the ulcer *Etiology (decubitus/pressure, diabetic, PVD) *Stage I-IV, Unstageable, Suspected Deep Tissue Injury (To the deepest stage) *If the ulcer was present at admission (POA) or occurred after admission In your professional opinion, can you please clarify the diagnosis, location, laterality and whether present on admission (POA): Stage 1 Pressure/Decubitus Ulcer (intact skin, non-blanching redness of local area) Stage 2 Pressure/Decubitus Ulcer (Partial thickness, loss of dermis, pink wound bed) Other condition, please specify Unable to determine Please indicate etiology of pressure ulcer (if known). (Last Revision: November 2016) Stage II pressure ulcer on the coccyx, POA MTDD
== END 2020-03-20 12:31 | disposition expired | DRG 377 ==
LOC: EC 00:10 → 4SSUR 01:50
PROVIDERS: ADMIT Hospitalist; ATTEND Hospitalist
PROC: 0D9670Z Drainage of Stomach with Drainage Device, Via Natural or Artificial Opening (ICD-10-PCS; principal; 2020-03-12)
DX: K92.0 Hematemesis (principal); J96.01 Acute respiratory failure with hypoxia; J15.6 Pneumonia due to other Gram-negative bacteria; J69.0 Pneumonitis due to inhalation of food and vomit; A41.9 Sepsis, unspecified organism; D62 Acute posthemorrhagic anemia; N17.9 Acute kidney failure, unspecified; I48.20 Chronic atrial fibrillation, unspecified; Z68.1 Body mass index [BMI] 19.9 or less, adult; R64 Cachexia; E87.0 Hyperosmolality and hypernatremia; J44.0 Chronic obstructive pulmonary disease with (acute) lower respiratory infection; E44.0 Moderate protein-calorie malnutrition; K56.699 Other intestinal obstruction unspecified as to partial versus complete obstruction; Z51.5 Encounter for palliative care; Z86.16 Personal history of COVID-19; L89.152 Pressure ulcer of sacral region, stage 2; E78.5 Hyperlipidemia, unspecified; E78.00 Pure hypercholesterolemia, unspecified; E86.0 Dehydration; E03.9 Hypothyroidism, unspecified; R26.9 Unspecified abnormalities of gait and mobility; N20.0 Calculus of kidney; K57.30 Diverticulosis of large intestine without perforation or abscess without bleeding; E87.8 Other disorders of electrolyte and fluid balance, not elsewhere classified; I71.4 Abdominal aortic aneurysm, without rupture; M19.91 Primary osteoarthritis, unspecified site; G30.9 Alzheimer's disease, unspecified; F02.80 Dementia in other diseases classified elsewhere, unspecified severity, without behavioral disturbance, psychotic disturbance, mood disturbance, and anxiety; R53.81 Other malaise; I10 Essential (primary) hypertension; Z87.891 Personal history of nicotine dependence; Z87.01 Personal history of pneumonia (recurrent); Z79.899 Other long term (current) drug therapy; Z79.890 Hormone replacement therapy; Z79.82 Long term (current) use of aspirin; Z91.09 Other allergy status, other than to drugs and biological substances; Z95.0 Presence of cardiac pacemaker; Z90.49 Acquired absence of other specified parts of digestive tract
CPT/HCPCS: 36415; 71045; 74018; 74177; 80048; 80053; 81001; 82550; 83605; 83690; 83735; 83880; 84145; 84484; 85025; 85027; 85610; 85730; 86850; 86900; 86901; 87086; 87635; 93005; 94640; 94760; 96361; 96374; 96375; 99285